=== PATIENT | male | born 1985 | race Caucasian/White ===

== ENCOUNTER 2016-11-14 06:26 | Emergency (ER) | payer OTHER ==
[2016-11-14] MEDS ORDERED: Ondansetron INJ* 2 MG/ML VIAL ONE (07:11)
[2016-11-14] MEDS ORDERED: Ondansetron INJ* 2 MG/ML VIAL IV ONE ×2 (07:15→07:23)
[2016-11-14] MEDS ORDERED: LORazepam INJ* 2 MG/ML 1 ML VIAL IV ONE (07:22)
[2016-11-14] MEDS ORDERED: Thiamine IV* 100 MG, Folic Acid IV* 1 MG, Multiple Vitamin IV ADULT* 10 ML in NS 0.9% 1... IV ONE (07:23)
[2016-11-14 07:30] LABS: Hematocrit 49 % (42-52); Mean Corpuscular HGB Conc 35 g/dl (31-36); Mean Corpuscular Hemoglobin 30 pg (27-31); Mean Corpuscular Volume 88 fL (80-94); Mean Platelet Volume 8 um3 (7.4-10.4); Red Blood Count 5.59 10^6/ul (4.0-5.4); Red Cell Distribution Width 13 % (10.5-15); White Blood Count 10.7 10^3/ul (3.5-10.8)
[2016-11-14 07:35] LABS: Add Diff/Slide Review? Slide Review Added; Comments Flag Yes
[2016-11-14 07:43] LABS: ALT 32 U/L (7-52); AST 33 U/L (13-39); Albumin 4.7 g/dL (3.2-5.2); Alkaline Phosphatase 90 U/L (34-104); Anion Gap 16 mmol/L (2-11); BUN/Creatinine Ratio 9.1 (8-20); Blood Urea Nitrogen 11 mg/dL (6-24); CO2 Carbon Dioxide 22 mmol/L (22-32); Calcium 9.4 mg/dL (8.6-10.3); Chloride 96 mmol/L (101-111); EGFR African American 88.8 (>60); EGFR Non-African American 69.1 (>60); Globulin 3.4 g/dL (2-4); Glucose 118 mg/dL (70-100); Magnesium 2.4 mg/dL (1.9-2.7); Potassium 3.7 mmol/L (3.5-5.0); Sodium 134 mmol/L (133-145); Total Protein 8.1 g/dL (6.4-8.9)
[2016-11-14 07:51] LABS: Acetaminophen < 15 mcg/mL; Alcohol 149 mg/dL (<10); Salicylate < 2.50 mg/dL (<30)
[2016-11-14 07:52] LABS: Benzodiazepine Urine Screen None Detected (None Detect)
[2016-11-14 08:02] LABS: TSH (Thyroid Stimulating Horm) 4.39 mcIU/mL (0.34-5.60)
--- NOTE | 2016-11-14 12:07 | ED ---
Fabian Dukes Karl, scribed for Leonard Jeffers MD on 11/14/16 at 0747 . Substance Abuse/Use - HPI Summary HPI Summary: Pt is 31 y/o male BIBA that presents to the ED c/o alcohol abuse. Pt stated "I was drinking" when asked what his chief complaint was in the room and stated he feels like he is having withdrawal. Pt also reported mild nausea and that he drinks beer, with his last drink being at approx 00:00 this morning. Pt reported that he usually stops drinking "cold turkey" but has tried a rehab center in [place] called the [facility]. Pt stated he does not need a mental health evaluation but just wants to detox. Per nursing note, pt has been drinking for 1 week with nausea and vomiting for the past 2 days but he has been an alcoholic for 10+ years. Pt has been off his medication for bipolar disorder and depression for 1 week as well. Pt denied SI/HI, hx of seizures, and any other drug use. Hx: alcoholism, depression, bipolar disorder, multiple suicide attempts. - History Of Current Complaint Chief Complaint: EDSubstanceAbuse Stated Complaint: NAUSEA Time Seen by Provider: 11/14/16 07:21 Hx Obtained From: Patient Onset/Duration of Drug/ETOH Abuse: Years - 10+ States Increased Use Since: 1 week Timing Of Abuse: Daily Severity Initially: Moderate Severity Currently: Moderate Character: Anxious Aggravating Factor(s): Medication Non-compliance Alleviating Factor(s): Nothing Associated Signs And Symptoms: Nausea, Vomiting Related Hx: Suicidal: Prior Attempt(s), Drug/Alcohol Last Used @ - 00:00 this morning, Prior Drug Abuse Counseling/Admission, Prior Psych Admission - Risk Factor(s) Completed Suicide Risk Factors: Male, White Polish, Past Suicide Attempt - Allergies/Home Medications Allergies/Adverse Reactions: Allergies Allergy/AdvReac Type Severity Reaction Status Date / Time No Known Allergies Allergy Verified 05/25/15 20:59 PMH/Surg Hx/FS Hx/Imm Hx Endocrine/Hematology History: Denies: Hx Anticoagulant Therapy, Hx Diabetes, Hx Thyroid Disease Cardiovascular History: Denies: Hx Hypertension, Hx Pacemaker/ICD Respiratory History: Denies: Hx Asthma, Hx Chronic Obstructive Pulmonary Disease (COPD) History: Reports: Hx Acute Renal Failure Denies: Hx Renal Disease Neurological History: Denies: Hx Dementia, Hx Seizures Psychiatric History: Reports: Hx Anxiety, Hx Depression, Hx Inpatient Treatment , Hx Community Mental Health Tx, Hx Bipolar Disorder - Type 1, Hx Suicide Attempt, Hx of Violent Episodes Against Others, Hx Substance Abuse Denies: Hx Attention Deficit Hyperactivity Disorder, Hx Eating Disorder, Hx Panic Disorder, Hx Post Traumatic Stress Disorder, Hx Schizophrenia, Other Psychiatric Issues/Disorders - Immunization History Date of Tetanus Vaccine: unknown Infectious Disease History: No Infectious Disease History: Denies: Hx Clostridium Difficile, Hx Hepatitis, Hx Human Immunodeficiency Virus (HIV), Hx Shingles, Hx Tuberculosis, Traveled Outside the [place] in Last 30 Days - Family History Known Family History: Negative: Other - alcoholism - Social History Alcohol Use: Daily Alcohol Amount: Pt states he cannot remember. Per pt records 20-25 drinks/day Hx Substance Use: No Substance Use Type: Reports: Prescribed Hx Tobacco Use: No Smoking Status (MU): Never Smoked Tobacco Have You Smoked in the Last Year: No Review of Systems Constitutional: Negative Eyes: Negative ENT: Negative Cardiovascular: Negative Respiratory: Negative Positive: Vomiting, Nausea Genitourinary: Negative Musculoskeletal: Negative Skin: Negative Neurological: Negative Positive: Anxious All Other Systems Reviewed And Are Negative: Yes Physical Exam Triage Information Reviewed: Yes Vital Signs On Initial Exam: Initial Vitals Temp Pulse Resp BP Pulse Ox 97.4 F 110 20 143/89 97 11/14/16 06:45 11/14/16 06:45 11/14/16 06:45 11/14/16 06:45 11/14/16 06:45 Vital Signs Reviewed: Yes Appearance: Positive: Well-Appearing, No Pain Distress Skin: Positive: Warm, Skin Color Reflects Adequate Perfusion, Dry Head/Face: Positive: Normal Head/Face Inspection Eyes: Positive: EOMI, FREEDOM ENT: Positive: Normal ENT inspection Neck: Positive: Supple, Nontender Respiratory/Lung Sounds: Positive: Clear to Auscultation, Breath Sounds Present Cardiovascular: Positive: Tachycardia - at 101 bpm Abdomen Description: Positive: Nontender, Soft Bowel Sounds: Positive: Present Musculoskeletal: Positive: Normal, Strength/ROM Intact Neurological: Positive: Normal, Sensory/Motor Intact, Alert, Oriented to Person Place, Time Psychiatric: Positive: Anxious Diagnostics - Vital Signs Vital Signs Temp Pulse Resp BP Pulse Ox 11/14/16 07:31 20 11/14/16 07:00 117 116/94 95 11/14/16 06:49 119 95 11/14/16 06:45 97.4 F 110 20 143/89 97 - Laboratory Lab Results: Lab Results 11/14/16 11/14/16 Range/Units 06:55 06:55 WBC 10.7 (3.5-10.8) 10^3/ul RBC 5.59 H (4.0-5.4) 10^6/ul Hgb 17.0 (14.0-18.0) g/dl Hct 49 (42-52) % MCV 88 (80-94) fL MCH 30 (27-31) pg MCHC 35 (31-36) g/dl RDW 13 (10.5-15) % Plt Count 318 (150-450) 10^3/ul MPV 8 (7.4-10.4) um3 Neut % (Auto) 56.2 (38-83) % Lymph % (Auto) 31.4 (25-47) % [place] % (Auto) 11.5 H (1-9) % Eos % (Auto) 0.4 (0-6) % Baso % (Auto) 0.5 (0-2) % Absolute Neuts (auto) 6.0 (1.5-7.7) 10^3/ul Absolute Lymphs (auto) 3.3 (1.0-4.8) 10^3/ul Absolute Monos (auto) 1.2 H (0-0.8) 10^3/ul Absolute Eos (auto) 0 (0-0.6) 10^3/ul Absolute Basos (auto) 0 (0-0.2) 10^3/ul Absolute Nucleated RBC 0.10 10^3/ul Nucleated RBC % 0.9 Sodium 134 (133-145) mmol/L Potassium 3.7 (3.5-5.0) mmol/L Chloride 96 L (101-111) mmol/L Carbon Dioxide 22 (22-32) mmol/L Anion Gap 16 H (2-11) mmol/L BUN 11 (6-24) mg/dL Creatinine 1.21 H (0.67-1.17) mg/dL Est GFR ( Amer) 88.8 (>60) Est GFR (Non-Af Amer) 69.1 (>60) BUN/Creatinine Ratio 9.1 (8-20) Glucose 118 H (70-100) mg/dL Calcium 9.4 (8.6-10.3) mg/dL Magnesium 2.4 (1.9-2.7) mg/dL Total Bilirubin 0.80 (0.2-1.0) mg/dL AST 33 (13-39) U/L ALT 32 (7-52) U/L Alkaline Phosphatase 90 (34-104) U/L Total Protein 8.1 (6.4-8.9) g/dL Albumin 4.7 (3.2-5.2) g/dL Globulin 3.4 (2-4) g/dL Albumin/Globulin Ratio 1.4 (1-3) TSH Pending Salicylates Pending Acetaminophen Pending Serum Alcohol Pending Result Diagrams: 11/14/16 06:55 11/14/16 06:55 Lab Statement: Any lab studies that have been ordered have been reviewed, and results considered in the medical decision making process. - EKG 07:14 Cardiac Rate: Tachycardia - at 101 bpm EKG Rhythm: Sinus Tachycardia Ectopy: None EKG Interpretation: Flat T's in lateral leads Course/Dx - Course Assessment/Plan: IN ED, PATIENT DENIES SI/HI. DENIES NEED FOR MHE. DECLINES MHE. ADVISED TO SEEK HELP WITH HIS ALCOHOL ADDICTION. DISCHARGE HOME STABLE. - Diagnoses Provider Diagnoses: Alcohol abuse Discharge - Discharge Plan Condition: Stable Disposition: HOME Patient Education Materials: Alcohol Intoxication (ED), Alcohol Use Disorder ( ED) Referrals: [facility] [Outside] [facility] [Outside] [facility] [Outside] Dali Ely MD [Primary Care Provider] - Additional Instructions: FOLLOW UP WITH YOUR DOCTOR. GET HELP FOR YOUR ALCOHOL PROBLEM. RETURN TO THE EMERGENCY DEPARTMENT FOR ANY WORSENING OF YOUR CONDITION OR QUESTIONS OR CONCERNS. The documentation as recorded by the Fabian byrne Karl accurately reflects the service I personally performed and the decisions made by me, Leonard Jeffers MD.
[2016-11-14 12:17] VITALS: BP 128/78
== END 2016-11-14 12:16 | disposition home or self-care (01) ==
LOC: ED 06:26
DX: F10.10 Alcohol abuse, uncomplicated (principal); R11.2 Nausea with vomiting, unspecified; F41.9 Anxiety disorder, unspecified
CPT/HCPCS: 36415; 80053; 80307; 80320; 80329; 83735; 84443; 85025; 93005; 96374; 96375; 99282; G0480; J2060; J2405; J3411

== ENCOUNTER 2017-03-21 13:59 | Emergency (ER) | payer OTHER ==
[2017-03-21] MEDS ORDERED: diPHENhydraMINE PO* 25 MG PO ONE (14:15)
[2017-03-21] MEDS ORDERED: Haloperidol TAB* 5 MG PO ONE ×2 (14:15→15:02)
[2017-03-21] MEDS ORDERED: LORazepam TAB(*) 1 MG PO ONE ×2 (14:15→15:02)
[2017-03-21 14:32] LABS: Urine Bacteria Absent (Absent); Urine Bilirubin Negative (Negative); Urine Glucose Negative (Negative); Urine Nitrite Negative (Negative)
[2017-03-21 14:44] LABS: Benzodiazepine Urine Screen None Detected (None Detect)
[2017-03-21 14:58] LABS: Hematocrit 48 % (42-52); Hemoglobin 16.1 g/dl (14.0-18.0); Mean Corpuscular HGB Conc 34 g/dl (31-36); Mean Corpuscular Hemoglobin 30 pg (27-31); Mean Corpuscular Volume 89 fL (80-94); Mean Platelet Volume 8 um3 (7.4-10.4); Red Cell Distribution Width 14 % (10.5-15)
[2017-03-21 15:11] LABS: ALT 214 U/L (7-52); AST 108 U/L (13-39); Albumin 4.8 g/dL (3.2-5.2); Alkaline Phosphatase 109 U/L (34-104); Anion Gap 17 mmol/L (2-11); BUN/Creatinine Ratio 5.9 (8-20); Blood Urea Nitrogen 6 mg/dL (6-24); CO2 Carbon Dioxide 20 mmol/L (22-32); Calcium 9.5 mg/dL (8.6-10.3); Chloride 99 mmol/L (101-111); Creatine Kinase 844 U/L (10-223); EGFR African American 107.5 (>60); EGFR Non-African American 83.6 (>60); Globulin 3.7 g/dL (2-4); Glucose 112 mg/dL (70-100); Potassium 3.9 mmol/L (3.5-5.0); Sodium 136 mmol/L (133-145); Total Protein 8.5 g/dL (6.4-8.9)
[2017-03-21 15:36] LABS: Acetaminophen < 15 mcg/mL; Alcohol 335 mg/dL (<10); Lithium < 0.10 mmol/L (0.6-1.2); Salicylate < 2.50 mg/dL (<30)
[2017-03-21 15:43] LABS: TSH (Thyroid Stimulating Horm) 2.44 mcIU/mL (0.34-5.60)
--- NOTE | 2017-03-21 18:25 | ED ---
Christina Dukes Auryana, scribed for Diogenes Cortes MD on 03/21/17 at 1630 . Psychiatric Complaint - HPI Summary HPI Summary: 32 year old male BIBVivi with police by side- reports increased panic attacks. Patient reports that he has not been doing well all week and states no sleep last night. Patient is medication non-compliant. PMHx is significant for bipolar disorder and anxiety/panic attacks. - History Of Current Complaint Time Seen by Provider: 03/21/17 14:26 Accompanied By: police Hx Obtained From: Patient, EMS, Other: - police Onset/Duration: Gradual Onset, Still Present Timing: Constant Severity Initially: Moderate Severity Currently: Moderate Character: Fearful, Anxious Aggravating Factor(s): Medication Non-compliance Associated Signs And Symptoms: Positive: Sleep Disturbance - not able to sleep - Allergies/Home Medications Allergies/Adverse Reactions: Allergies Allergy/AdvReac Type Severity Reaction Status Date / Time No Known Allergies Allergy Verified 05/25/15 20:59 Home Medications: Home Medications Disulfiram [Antabuse 500 MG TAB] 500 mg PO DAILY 03/21/17 [History Confirmed 10/26] Lamotrigine [Lamictal] 200 mg PO BEDTIME 03/21/17 [History Confirmed 03/21/17] Lurasidone HCl [Latuda] 80 mg PO DAILY 03/21/17 [History Confirmed 03/21/17] QUEtiapine TAB* [SEROquel TAB*] 25 mg PO BID 03/21/17 [History Confirmed ] QUEtiapine TAB* [SEROquel TAB*] 200 mg PO BEDTIME 03/21/17 [History Confirmed ] PMH/Surg Hx/FS Hx/Imm Hx Endocrine/Hematology History: Denies: Hx Anticoagulant Therapy, Hx Diabetes, Hx Thyroid Disease Cardiovascular History: Denies: Hx Hypertension, Hx Pacemaker/ICD Respiratory History: Denies: Hx Asthma, Hx Chronic Obstructive Pulmonary Disease (COPD) History: Reports: Hx Acute Renal Failure Denies: Hx Renal Disease Neurological History: Denies: Hx Dementia, Hx Seizures Psychiatric History: Reports: Hx Anxiety, Hx Depression, Hx Inpatient Treatment , Hx Community Mental Health Tx, Hx Bipolar Disorder - Type 1, Hx Suicide Attempt, Hx of Violent Episodes Against Others, Hx Substance Abuse Denies: Hx Attention Deficit Hyperactivity Disorder, Hx Eating Disorder, Hx Panic Disorder, Hx Post Traumatic Stress Disorder, Hx Schizophrenia, Other Psychiatric Issues/Disorders - Immunization History Date of Tetanus Vaccine: unknown Infectious Disease History: Denies: Hx Clostridium Difficile, Hx Hepatitis, Hx Human Immunodeficiency Virus (HIV), Hx Shingles, Hx Tuberculosis - Family History Known Family History: Negative: Other - alcoholism - Social History Occupation: Employed Full-time Lives: Alone Alcohol Use: Daily Alcohol Amount: Pt states he cannot remember. Per pt records 20-25 drinks/day Hx Substance Use: No Substance Use Type: Reports: Prescribed Hx Tobacco Use: No Smoking Status (MU): Never Smoked Tobacco Have You Smoked in the Last Year: No Review of Systems Constitutional: Negative Eyes: Negative ENT: Negative Cardiovascular: Negative Respiratory: Negative Gastrointestinal: Negative Genitourinary: Negative Musculoskeletal: Negative Skin: Negative Neurological: Negative Positive: Anxious, Other - trouble sleeping All Other Systems Reviewed And Are Negative: Yes Physical Exam - Summary Physical Exam Summary: The patient is well-nourished in no acute distress and in no acute pain. The skin is warm and dry and skin color reflects adequate perfusion. HEENT: The head is normocephalic and atraumatic. The pupils are equal and reactive. The conjunctivae are clear and without drainage. Nares are patent and without drainage. Mouth reveals moist mucous membranes and the throat is without erythema and exudate. The external ears are intact. The ear canals are patent and without drainage. The tympanic membranes are intact. Neck is supple with full range of motion and non-tender. There are no carotid bruits. There is no neck vein distension. Respiratory: Chest is non-tender. Lungs are clear to auscultation and breath sounds are symmetrical and equal. Cardiovascular: Heart is tachycardic. There is no murmur or rub auscultated. There is no peripheral edema and pulses are symmetrical and equal. Abdomen: The abdomen is soft and non-tender. There are normal bowel sounds heard in all four quadrants and there is no organomegaly palpated. Musculoskeletal: There is no back pain noted. Extremities are non-tender with full range of motion. There is good capillary refill. There is no peripheral edema or calf tenderness elicited. Neurological: Patient is alert and oriented to person, place and time. The patient has symmetrical motor strength in all four extremities. Cranial nerves are grossly intact. Deep tendon reflexes are symmetrical and equal in all four extremities. Psychiatric: The patient seems anxious and scared. He follows commands and is alert. Triage Information Reviewed: Yes Vital Signs On Initial Exam: Initial Vitals Temp Pulse Resp BP Pulse Ox 99.7 F 125 20 109/93 96 03/21/17 14:24 03/21/17 14:24 03/21/17 14:24 03/21/17 14:24 03/21/17 14:24 Vital Signs Reviewed: Yes Diagnostics - Vital Signs Vital Signs Temp Pulse Resp BP Pulse Ox 03/21/17 15:11 18 03/21/17 14:27 18 03/21/17 14:24 99.7 F 125 20 109/93 96 - Laboratory Lab Results: Lab Results 03/21/17 03/21/17 03/21/17 Range/Units 14:17 14:17 14:40 WBC 8.0 (3.5-10.8) 10^3/ul RBC 5.40 (4.0-5.4) 10^6/ul Hgb 16.1 (14.0-18.0) g/dl Hct 48 (42-52) % MCV 89 (80-94) fL MCH 30 (27-31) pg MCHC 34 (31-36) g/dl RDW 14 (10.5-15) % Plt Count 248 (150-450) 10^3/ul MPV 8 (7.4-10.4) um3 Neut % (Auto) 59.8 (38-83) % Lymph % (Auto) 28.6 (25-47) % [place] % (Auto) 10.5 H (1-9) % Eos % (Auto) 0.1 (0-6) % Baso % (Auto) 1.0 (0-2) % Absolute Neuts (auto) 4.8 (1.5-7.7) 10^3/ul Absolute Lymphs (auto) 2.3 (1.0-4.8) 10^3/ul Absolute Monos (auto) 0.8 (0-0.8) 10^3/ul Absolute Eos (auto) 0 (0-0.6) 10^3/ul Absolute Basos (auto) 0.1 (0-0.2) 10^3/ul Absolute Nucleated RBC 0.02 10^3/ul Nucleated RBC % 0.3 Sodium (133-145) mmol/L Potassium (3.5-5.0) mmol/L Chloride (101-111) mmol/L Carbon Dioxide (22-32) mmol/L Anion Gap (2-11) mmol/L BUN (6-24) mg/dL Creatinine (0.67-1.17) mg/dL Est GFR ( Amer) (>60) Est GFR (Non-Af Amer) (>60) BUN/Creatinine Ratio (8-20) Glucose (70-100) mg/dL Calcium (8.6-10.3) mg/dL Total Bilirubin (0.2-1.0) mg/dL AST (13-39) U/L ALT (7-52) U/L Alkaline Phosphatase (34-104) U/L Total Creatine Kinase (10-223) U/L Total Protein (6.4-8.9) g/dL Albumin (3.2-5.2) g/dL Globulin (2-4) g/dL Albumin/Globulin Ratio (1-3) TSH (0.34-5.60) mcIU/mL Urine Color Straw Urine Appearance Clear Urine pH 6.0 (5-9) Ur Specific [place] 1.003 L (1.010-1.030) Urine Protein Negative (Negative) Urine Ketones Negative (Negative) Urine Blood 1+ H (Negative) Urine Nitrate Negative (Negative) Urine Bilirubin Negative (Negative) Urine Urobilinogen Negative (Negative) Ur Leukocyte Esterase Negative (Negative) Urine WBC (Auto) Absent (Absent) Urine RBC (Auto) Trace(0-2/hpf) (Absent) Urine Bacteria Absent (Absent) Urine Glucose Negative (Negative) Salicylates (<30) mg/dL Urine Opiates Screen None detected (None Detect) Acetaminophen mcg/mL Ur Barbiturates Screen None detected (None Detect) Ur Phencyclidine Scrn None detected (None Detect) Ur Amphetamines Screen None detected (None Detect) U Benzodiazepines Scrn None detected (None Detect) [place] (0.6-1.2) mmol/L Urine Cocaine Screen None detected (None Detect) U Cannabinoids Screen None detected (None Detect) Serum Alcohol (<10) mg/dL 03/21/17 Range/Units 14:40 WBC (3.5-10.8) 10^3/ul RBC (4.0-5.4) 10^6/ul Hgb (14.0-18.0) g/dl Hct (42-52) % MCV (80-94) fL MCH (27-31) pg MCHC (31-36) g/dl RDW (10.5-15) % Plt Count (150-450) 10^3/ul MPV (7.4-10.4) um3 Neut % (Auto) (38-83) % Lymph % (Auto) (25-47) % [place] % (Auto) (1-9) % Eos % (Auto) (0-6) % Baso % (Auto) (0-2) % Absolute Neuts (auto) (1.5-7.7) 10^3/ul Absolute Lymphs (auto) (1.0-4.8) 10^3/ul Absolute Monos (auto) (0-0.8) 10^3/ul Absolute Eos (auto) (0-0.6) 10^3/ul Absolute Basos (auto) (0-0.2) 10^3/ul Absolute Nucleated RBC 10^3/ul Nucleated RBC % Sodium 136 (133-145) mmol/L Potassium 3.9 (3.5-5.0) mmol/L Chloride 99 L (101-111) mmol/L Carbon Dioxide 20 L (22-32) mmol/L Anion Gap 17 H (2-11) mmol/L BUN 6 (6-24) mg/dL Creatinine 1.02 (0.67-1.17) mg/dL Est GFR ( Amer) 107.5 (>60) Est GFR (Non-Af Amer) 83.6 (>60) BUN/Creatinine Ratio 5.9 L (8-20) Glucose 112 H (70-100) mg/dL Calcium 9.5 (8.6-10.3) mg/dL Total Bilirubin 0.50 (0.2-1.0) mg/dL AST 108 H (13-39) U/L ALT 214 H (7-52) U/L Alkaline Phosphatase 109 H (34-104) U/L Total Creatine Kinase 844 H (10-223) U/L Total Protein 8.5 (6.4-8.9) g/dL Albumin 4.8 (3.2-5.2) g/dL Globulin 3.7 (2-4) g/dL Albumin/Globulin Ratio 1.3 (1-3) TSH 2.44 (0.34-5.60) mcIU/mL Urine Color Urine Appearance Urine pH (5-9) Ur Specific [place] (1.010-1.030) Urine Protein (Negative) Urine Ketones (Negative) Urine Blood (Negative) Urine Nitrate (Negative) Urine Bilirubin (Negative) Urine Urobilinogen (Negative) Ur Leukocyte Esterase (Negative) Urine WBC (Auto) (Absent) Urine RBC (Auto) (Absent) Urine Bacteria (Absent) Urine Glucose (Negative) Salicylates < 2.50 (<30) mg/dL Urine Opiates Screen (None Detect) Acetaminophen < 15 mcg/mL Ur Barbiturates Screen (None Detect) Ur Phencyclidine Scrn (None Detect) Ur Amphetamines Screen (None Detect) U Benzodiazepines Scrn (None Detect) [place] < 0.10 L (0.6-1.2) mmol/L Urine Cocaine Screen (None Detect) U Cannabinoids Screen (None Detect) Serum Alcohol 335 H (<10) mg/dL Result Diagrams: 03/21/17 14:40 03/21/17 14:40 Lab Statement: Any lab studies that have been ordered have been reviewed, and results considered in the medical decision making process. Course/Dx - Course Assessment/Plan: 32 year old male BIBA with police by side- reports increased panic attacks. Patient reports that he has not been doing well all week and states no sleep last night. Patient is medication non-compliant. PMHx is significant for bipolar disorder and anxiety/panic attacks. (15:30) Patient is very anxious and restless even after medication - will administer more. LABS: elevated liver enzymes, serum etoh 338, low lithium. Patient will be a signout to Dr. Sheriff at 19:00 03/21/17. Medically estimated to be medically clear at 01:30 03/22/17 - Differential Dx/Clinical Impression Differential Diagnosis/HQI/PQRI: Positive: Alcohol Intoxication, Bipolar Disorder, Depression Provider Diagnosis: Acute alcohol intoxication, Depressed Discharge - Discharge Plan Condition: Stable Disposition: OTHER Discharge Disposition Comment: signout to Dr. Sheriff at 19:00 pending medical clearance and E Referrals: Dali Ely MD [Primary Care Provider] - The documentation as recorded by the scribChristina tucker Auryana accurately reflects the service I personally performed and the decisions made by me, Diogenes Cortes MD.
[2017-03-22 01:45] VITALS: BP 143/91
== END 2017-03-22 04:01 ==
LOC: ED 13:59
DX: F32.9 Major depressive disorder, single episode, unspecified (principal); Z91.14 Patient's other noncompliance with medication regimen; F10.129 Alcohol abuse with intoxication, unspecified; Y90.8 Blood alcohol level of 240 mg/100 ml or more; F41.9 Anxiety disorder, unspecified
CPT/HCPCS: 36415; 80053; 80178; 80307; 80320; 80329; 81003; 81015; 82550; 84443; 85025; 99284; A9270-GY; G0480

== ENCOUNTER 2017-04-16 08:45 | Inpatient (IN) | payer OTHER ==
[2017-04-16] MEDS ORDERED: Thiamine IV* 100 MG, Folic Acid IV* 1 MG, Multiple Vitamin IV ADULT* 10 ML in NS 0.9% 1... IV ONE (09:10)
[2017-04-16] MEDS ORDERED: LORazepam INJ* 2 MG/ML 1 ML VIAL IV PUSH ONE ×2 (09:14→11:09)
[2017-04-16 09:34] LABS: Hematocrit 48 % (42-52); Hemoglobin 16.4 g/dl (14.0-18.0); Mean Corpuscular HGB Conc 34 g/dl (31-36); Mean Corpuscular Hemoglobin 30 pg (27-31); Mean Corpuscular Volume 88 fL (80-94); Mean Platelet Volume 7 um3 (7.4-10.4); Red Blood Count 5.47 10^6/ul (4.0-5.4); Red Cell Distribution Width 14 % (10.5-15); White Blood Count 6.3 10^3/ul (3.5-10.8)
[2017-04-16 09:45] LABS: ALT 69 U/L (7-52); AST 63 U/L (13-39); Albumin 4.5 g/dL (3.2-5.2); Alkaline Phosphatase 98 U/L (34-104); Anion Gap 16 mmol/L (2-11); BUN/Creatinine Ratio 10.6 (8-20); Blood Urea Nitrogen 12 mg/dL (6-24); CO2 Carbon Dioxide 22 mmol/L (22-32); Calcium 9.3 mg/dL (8.6-10.3); Chloride 96 mmol/L (101-111); EGFR African American 95.5 (>60); EGFR Non-African American 74.3 (>60); Globulin 3.4 g/dL (2-4); Glucose 129 mg/dL (70-100); Potassium 3.9 mmol/L (3.5-5.0); Sodium 134 mmol/L (133-145); Total Protein 7.9 g/dL (6.4-8.9)
[2017-04-16 10:11] LABS: Acetaminophen < 15 mcg/mL; Alcohol 147 mg/dL (<10); Salicylate < 2.50 mg/dL (<30)
[2017-04-16 10:21] LABS: TSH (Thyroid Stimulating Horm) 2.41 mcIU/mL (0.34-5.60)
[2017-04-16] MEDS ORDERED: Thiamine IV* 100 MG/ML 2 ML VIAL IM ONE (11:35)
[2017-04-16] MEDS ORDERED: Acetaminophen TAB* 325 MG PO PRN ×2 (11:35→12:38)
[2017-04-16] MEDS ORDERED: Ondansetron INJ* 2 MG/ML VIAL IV PRN (12:38)
--- NOTE | 2017-04-16 12:57 | ED ---
Crow Dukes SooYoung, scribed for Emiliano Calles MD on 04/16/17 at 0921 . Substance Abuse/Use - HPI Summary HPI Summary: A 32 y/o M presents to ED with c/o EtOH withdrawal. Pt states he last drank at 2200 yesterday. Sx include vomiting, tremors, feeling nervous, inability to sit still. Denies n/d and constipation, abd pain, CP, SOB. He has been binge drinking for the past 10 days, and last night he had 18 to 19 beers. Pt reports being an alcoholic for past decade. Non-smoker. No drugs. - History Of Current Complaint Chief Complaint: EDDetoxRequest Stated Complaint: WITHDRAWAL Time Seen by Provider: 04/16/17 09:09 Hx Obtained From: Patient Onset/Duration of Drug/ETOH Abuse: Days - binging past 10 days Ingestion History: Type/Name Of Drug - ETOH Overdose Characteristics: Oral Timing Of Abuse: Daily, Binge Use Severity Initially: Moderate Severity Currently: Moderate Character: Other - nervous Associated Signs And Symptoms: Vomiting, Other: - tremors, feeling nervous - Allergies/Home Medications Allergies/Adverse Reactions: Allergies Allergy/AdvReac Type Severity Reaction Status Date / Time No Known Allergies Allergy Verified 05/25/15 20:59 Home Medications: Home Medications Lurasidone (NF) [Latuda (NF)] 80 mg PO BEDTIME 04/16/17 [History Confirmed 04/16] Mirtazapine TAB* [Remeron TAB*] 15 mg PO DAILY 04/16/17 [History Confirmed 04/16] lamoTRIgine TAB(*) [LaMICtal TAB(*)] 200 mg PO BEDTIME 04/16/17 [History Confirmed 04/16/17] PMH/Surg Hx/FS Hx/Imm Hx Previously Healthy: No Endocrine/Hematology History: Denies: Hx Anticoagulant Therapy, Hx Diabetes, Hx Thyroid Disease Cardiovascular History: Denies: Hx Hypertension, Hx Pacemaker/ICD Respiratory History: Denies: Hx Asthma, Hx Chronic Obstructive Pulmonary Disease (COPD) History: Reports: Hx Acute Renal Failure Denies: Hx Renal Disease Neurological History: Denies: Hx Dementia, Hx Seizures Psychiatric History: Reports: Hx Anxiety, Hx Depression, Hx Inpatient Treatment , Hx Community Mental Health Tx, Hx Bipolar Disorder - Type 1, Hx Suicide Attempt, Hx of Violent Episodes Against Others, Hx Substance Abuse Denies: Hx Attention Deficit Hyperactivity Disorder, Hx Eating Disorder, Hx Panic Disorder, Hx Post Traumatic Stress Disorder, Hx Schizophrenia, Other Psychiatric Issues/Disorders - Immunization History Date of Tetanus Vaccine: UTD Date of Influenza Vaccine: UTD Infectious Disease History: No Infectious Disease History: Denies: Hx Clostridium Difficile, Hx Hepatitis, Hx Human Immunodeficiency Virus (HIV), Hx Shingles, Hx Tuberculosis, Traveled Outside the [place] in Last 30 Days - Family History Known Family History: Negative: Other - alcoholism - Social History Occupation: Employed Full-time Lives: Alone Alcohol Use: Daily Alcohol Amount: Per pt approximately 18 drinks/day of 12oz beer Hx Substance Use: No Substance Use Type: Reports: None Hx Tobacco Use: No Smoking Status (MU): Never Smoked Tobacco Have You Smoked in the Last Year: No Review of Systems Positive: Other - pos: ETOH withdrawl-shaking/tremors Negative: Chest Pain Negative: Shortness Of Breath Positive: Vomiting, Other - neg: constipation. Negative: Abdominal Pain, Diarrhea, Nausea Psychological: Other - pos: nervous All Other Systems Reviewed And Are Negative: Yes Physical Exam - Summary Physical Exam Summary: VITAL SIGNS: Reviewed. GENERAL: Patient is a well-developed and nourished male who is lying comfortable in the stretcher. Patient is not in any acute respiratory distress. SLIGHTLY TREMULOUS. HEAD AND FACE: No signs of trauma. No ecchymosis, hematomas or skull depressions. No sinus tenderness. EYES: PERRLA, EOMI x 2, No injected conjunctiva, no nystagmus. EARS: Hearing grossly intact. Ear canals and tympanic membranes are within normal limits. MOUTH: Oropharynx within normal limits. NECK: Supple, trachea is midline, no adenopathy, no JVD, no carotid bruit, no c- spine tenderness, neck with full ROM. CHEST: Symmetric, no tenderness at palpation LUNGS: Clear to auscultation bilaterally. No wheezing or crackles. CVS: Regular rate and rhythm, S1 and S2 present, no murmurs or gallops appreciated. ABDOMEN: Soft, non-tender. No signs of distention. No rebound, no guarding, and no masses palpated. Bowel sounds are normal. EXTREMITIES: FROM in all major joints, no edema, no cyanosis or clubbing. NEURO: Alert and oriented x 3. No acute neurological deficits. Speech is normal and follows commands. SKIN: Dry and warm Triage Information Reviewed: Yes Vital Signs On Initial Exam: Initial Vitals Temp Pulse Resp BP Pulse Ox 96.9 F 120 18 133/100 99 04/16/17 08:48 04/16/17 08:48 04/16/17 08:48 04/16/17 08:48 04/16/17 08:48 Vital Signs Reviewed: Yes - Willy Coma Scale Coma Scale Total: 15 Diagnostics - Vital Signs Vital Signs Temp Pulse Resp BP Pulse Ox 04/16/17 09:00 115 19 131/87 95 04/16/17 08:58 96.7 F 112 12 112/92 96 04/16/17 08:56 112/92 04/16/17 08:48 96.9 F 120 18 133/100 99 - Laboratory Lab Results: Lab Results 04/16/17 04/16/17 Range/Units 09:14 09:14 WBC 6.3 (3.5-10.8) 10^3/ul RBC 5.47 H (4.0-5.4) 10^6/ul Hgb 16.4 (14.0-18.0) g/dl Hct 48 (42-52) % MCV 88 (80-94) fL MCH 30 (27-31) pg MCHC 34 (31-36) g/dl RDW 14 (10.5-15) % Plt Count 293 (150-450) 10^3/ul MPV 7 L (7.4-10.4) um3 Neut % (Auto) 66.4 (38-83) % Lymph % (Auto) 24.8 L (25-47) % [place] % (Auto) 7.5 (1-9) % Eos % (Auto) 0.4 (0-6) % Baso % (Auto) 0.9 (0-2) % Absolute Neuts (auto) 4.2 (1.5-7.7) 10^3/ul Absolute Lymphs (auto) 1.6 (1.0-4.8) 10^3/ul Absolute Monos (auto) 0.5 (0-0.8) 10^3/ul Absolute Eos (auto) 0 (0-0.6) 10^3/ul Absolute Basos (auto) 0.1 (0-0.2) 10^3/ul Absolute Nucleated RBC 0.02 10^3/ul Nucleated RBC % 0.3 Sodium 134 (133-145) mmol/L Potassium 3.9 (3.5-5.0) mmol/L Chloride 96 L (101-111) mmol/L Carbon Dioxide 22 (22-32) mmol/L Anion Gap 16 H (2-11) mmol/L BUN 12 (6-24) mg/dL Creatinine 1.13 (0.67-1.17) mg/dL Est GFR ( Amer) 95.5 (>60) Est GFR (Non-Af Amer) 74.3 (>60) BUN/Creatinine Ratio 10.6 (8-20) Glucose 129 H (70-100) mg/dL Calcium 9.3 (8.6-10.3) mg/dL Total Bilirubin 0.60 (0.2-1.0) mg/dL AST 63 H (13-39) U/L ALT 69 H (7-52) U/L Alkaline Phosphatase 98 (34-104) U/L Total Protein 7.9 (6.4-8.9) g/dL Albumin 4.5 (3.2-5.2) g/dL Globulin 3.4 (2-4) g/dL Albumin/Globulin Ratio 1.3 (1-3) TSH 2.41 (0.34-5.60) mcIU/mL Salicylates < 2.50 (<30) mg/dL Acetaminophen < 15 mcg/mL Serum Alcohol 147 H (<10) mg/dL Result Diagrams: 04/16/17 09:14 04/16/17 09:14 Lab Statement: Any lab studies that have been ordered have been reviewed, and results considered in the medical decision making process. - EKG 1 Cardiac Rate: Tachycardia - 104 bpm EKG Rhythm: Sinus Tachycardia ST Segment: Normal - no ST elevation Course/Dx - Course Assessment/Plan: A 32 y/o M presents to ED with c/o EtOH withdrawal. Pt states he last drank at 2200 yesterday. Sx include vomiting, tremors, feeling nervous, inability to sit still. Denies n/d and constipation, abd pain, CP, SOB. He has been binge drinking for the past 10 days, and last night he had 18 to 19 beers. Pt reports being an alcoholic for past decade. Non-smoker. No drugs. In the ED course an IV access was obtained. Patient was placed in a cardiac cath rn. Patient was started with IV fluids. HE seems very nervous therefore he was given one dose of Ativan. Labs within normal limits except for glucose of 129, Increase LFTs secondary to his alcoholism and serum alcohol of 147. EKG shows a sinus tachycardia w/o ST elevations. In the ED course he was given a banana bag, Ativan for his anxiety and it seem that he is withdrawing from ETOH. At this time he is tachycardic and tremulus. Therefore I discussed the case with Dr. Churchill who accepted the patient for admission. - Diagnoses Differential Diagnosis/HQI/PQRI: Positive: Alcohol Abuse, Alcohol Withdrawal, Anxiety, Drug Withdrawal Provider Diagnoses: Alcohol withdrawal - Physician Notifications Discussed Care Of Patient With: Cara Churchill Time Discussed With Above Provider: 11:35 Instructed by Provider To: Admit As Inpatient Discharge - Discharge Plan Condition: Stable Disposition: ADMITTED TO [facility] The documentation as recorded by the Crow byrne SooYoung accurately reflects the service I personally performed and the decisions made by me, Emiliano Calles MD.
--- NOTE | 2017-04-16 14:05 | HP ---
CC: Dr. Ely * HISTORY AND PHYSICAL: DATE OF ADMISSION: 04/16/17 PRIMARY CARE PHYSICIAN: Dr. Ely. ATTENDING PHYSICIAN WHILE IN THE HOSPITAL: Cara Churchill MD * (report dictated by Nithin Queen NP). CHIEF COMPLAINT: ETOH abuse. HISTORY OF PRESENT ILLNESS: Mr. Anthony is a 32-year-old male patient. He has a history of ETOH abuse, depression, bipolar disorder, alcoholic hepatitis and history of suicidal ideation in the past. He comes in today. He says he has been binge drinking for the last 10 days, he has been drinking about 20 to 25 drinks a day. He stopped late last night and by early this morning, he noted that he was starting to get sweaty. He was getting really agitated. He was having palpitations and he was feeling shaky. He was concerned that he was going to go into withdrawal as he has had DTs in the past, so he came into the ER. He denied having any chest pain. No shortness of breath. No hallucinations. No abdominal pain. No nausea, no vomiting. He denied any tarry stools. No dysuria, fevers or chills. He was evaluated in the ER. There was concern for ETOH withdrawal. We were asked to evaluate for admission. PAST MEDICAL HISTORY: Significant for: 1. ETOH abuse. 2. Depression. 3. Bipolar disorder. 4. Alcoholic hepatitis. 5. Suicidal ideation. PAST SURGICAL HISTORY: He denied. HOME MEDICATIONS: According to the list that was provided includes: 1. Seroquel 25 mg twice a day. 2. Seroquel 200 mg at bedtime. 3. Remeron 15 mg daily. 4. Latuda 80 mg at bedtime. 5. Lamictal 200 mg at bedtime. 6. Invega 150 mg IM every 28 days. 7. Antabuse 500 mg p.o. daily. ALLERGIES TO MEDICATIONS: Include no known drug allergies. FAMILY HISTORY: Reviewed, noncontributory. SOCIAL HISTORY: He does not smoke. He does drink on a daily basis. The last time he was sober was about 10 days ago. He was sober for about a month. Then he had these episodes of binge drinking. He works at [employer]. He does not appoint a surrogate decision maker at this point. REVIEW OF SYSTEMS: There is no documented fever. He denied having any significant weight change. There was no double vision. There was no ear discharge. There was no rhinorrhea. There was no sore throat. No thyroid enlargement. He denied having any chest pain. There was no orthopnea. No nocturnal dyspnea. There was no abdominal pain. No nausea, no vomiting. No dysuria, no frequency. There was no seizures. No loss of consciousness. No pruritus and no skin ulcerations. Review of 14 systems completed, all others negative. PHYSICAL EXAMINATION GENERAL: Mr. Anthony is a 32-year-old male patient. He is sitting in the ER stretcher. He does not appear to be in any acute distress. VITAL SIGNS: Blood pressure 119/79, pulse of 104, respirations 18, O2 sat 95%, temperature 96.7. HEENT: Head is atraumatic, normocephalic. Eyes: EOMs are intact. Sclerae are anicteric, not pale. Throat: Oral mucosa appears to be moist. No oropharyngeal erythema. NECK: Supple. LUNGS: Clear to auscultation bilaterally. There are no wheezes, rales or rhonchi. HEART: Sounds S1, S2. Regular rate and rhythm. He is tachycardic. ABDOMEN: Soft. It was flat, nontender. Bowel sounds were present. EXTREMITIES: Pulses 2+ throughout. He is able to move all 4 extremities with 5 /5 strength. NEUROLOGIC: The patient is awake, he is alert, he is oriented x3. Tongue is midline. Director Payer were equal. No gross focal deficits. SKIN: Intact. DIAGNOSTIC STUDIES/LAB DATA: The labs today revealed a WBC of 6.3, RBC of 5.47 , hemoglobin of 16.4, hematocrit of 48, platelet count of 93. Sodium 134, potassium 3.9, chloride 96, bicarb 22, BUN 12, creatinine 1.13, glucose 129. Lactic 9.3, AST 63, ALT 69. TSH 2.4. Toxicology showed an alcohol level of 147. He had an EKG obtained today which revealed sinus tachycardia at a rate of 104. No ST elevations or T-wave inversions were noted. Old medical records were reviewed. ASSESSMENT AND PLAN: Mr. Anthony is a 32-year-old male patient coming into the ER today with complaints of alcohol withdrawal. He will be admitted under observation status for: 1. ETOH abuse with signs of withdrawal. At this point, I will go ahead and put him on the WAM protocol. He got a banana bag here in the ED. We will get a social work consult. We will hydrate the patient. We will continue with supportive care. He appears to have some mild withdrawal currently, but with his history of going into delirium tremens, I would like to keep him overnight for observation. 2. ETOH abuse. Again, we did order social work consult. 3. Depression. Continue supportive care. 4. Bipolar. Continue meds as prescribed. 5. Alcoholic hepatitis. He has a mild amount of elevated LFTs probably from the alcohol. I would not call this formally alcoholic hepatitis, it is just slightly elevated. We will trend these and we will continue to follow. 6. History of suicidal ideation. He is currently not suicidal. 7. DVT prophylaxis. We will go ahead and put him on SCDs. 8. Code status is full code. 9. Fluids, electrolytes, nutrition. Regular diet. TIME SPENT: Time spent on the admission 60 minutes, greater than half the time was spent [id number] with the patient, obtaining my history and physical, the other half time spent going over the plan of care with the patient, implementing the plan of care. I did discuss the plan of care with my attending , Dr. Churchill; she is in agreement. NITHIN QUEEN, PORTER [id number]/CPS #: [id number] ESTHELA
[2017-04-16] MEDS: NS 0.9% 1000 ML* 1,000 ML IV SCH ×2 (14:18→22:47)
[2017-04-16] MEDS: LORazepam TAB(*) 1 MG PO SCH ×3 (18:17→22:29)
[2017-04-16] MEDS ORDERED: QUEtiapine TAB* 25 MG PO SCH (21:00)
[2017-04-16] MEDS ORDERED: QUEtiapine TAB* 100 MG PO SCH (21:00)
[2017-04-16] MEDS: lamoTRIgine TAB(*) 100 MG PO SCH (21:01)
[2017-04-17] MEDS: LORazepam TAB(*) 1 MG PO SCH ×6 (00:40→21:13)
[2017-04-17] MEDS: NS 0.9% 1000 ML* 1,000 ML IV SCH ×2 (06:21→15:03)
[2017-04-17] MEDS: Omeprazole CAP* 20 MG PO SCH (06:22)
[2017-04-17 07:36] LABS: Albumin 3.8 g/dL (3.2-5.2); BUN/Creatinine Ratio 14.9 (8-20); Calcium 8.8 mg/dL (8.6-10.3); Direct Bilirubin 0.2 mg/dL (0.03-0.18); EGFR African American 118.1 (>60); EGFR Non-African American 91.9 (>60); Globulin 2.7 g/dL (2-4); Indirect Bilirubin 1.1 mg/dL (0.3-1.0); Potassium 3.8 mmol/L (3.5-5.0); Total Bilirubin 1.3 mg/dL (0.2-1.0); Total Protein 6.5 g/dL (6.4-8.9)
[2017-04-17 07:46] LABS: Hematocrit 42 % (42-52); Hemoglobin 14.4 g/dl (14.0-18.0); Mean Corpuscular HGB Conc 34 g/dl (31-36); Mean Corpuscular Hemoglobin 31 pg (27-31); Mean Corpuscular Volume 89 fL (80-94); Mean Platelet Volume 8 um3 (7.4-10.4); Red Blood Count 4.73 10^6/ul (4.0-5.4); Red Cell Distribution Width 14 % (10.5-15); White Blood Count 5.3 10^3/ul (3.5-10.8)
[2017-04-17] MEDS: Thiamine TAB* 100 MG TAB PO SCH (08:43)
[2017-04-17] MEDS: Multivitamins/Minerals TAB PO SCH (08:43)
[2017-04-17] MEDS: Folic Acid TAB* 1 MG PO SCH (08:44)
[2017-04-17] MEDS: Mirtazapine TAB* 15 MG PO SCH (08:44)
[2017-04-17] MEDS ORDERED: Multivitamins/Minerals TAB PO SCH (09:00)
[2017-04-17] MEDS ORDERED: Thiamine TAB* 100 MG TAB PO SCH (09:00)
--- NOTE | 2017-04-17 15:15 | PN ---
Subjective Date of Service: 04/17/17 Interval History: This is a 32 yo male with h/o alcoholism who had engaged in a binge for the last several days and presented in alcohol withdrawal. Patient required multiple doses of Ativan overnight and was quite lethargic this morning but has become more alert as the day goes on. He denies ARCE, n/v. No abd pain. Some tremor. Objective Active Medications: Acetaminophen (Tylenol Tab*) 650 mg PO Q4H PRN PRN Reason: PAIN Acetaminophen (Tylenol Tab*) 650 mg PO Q4H PRN PRN Reason: PAIN Folic Acid (Folvite Tab*) 1 mg PO DAILY [facility] Last Admin: 04/17/17 08:44 Dose: 1 mg Sodium Chloride (Ns 0.9% 1000 Ml*) 1,000 mls @ 125 mls/hr IV PER RATE [facility] Last Admin: 04/17/17 15:03 Dose: 125 mls/hr Lamotrigine (Lamictal Tab(*)) 200 mg PO BEDTIME [facility] Last Admin: 04/16/17 21:01 Dose: 200 mg Lorazepam (Ativan Tab(*)) 0 mg PO .PER WAM SCORE [facility] PRN Reason: Protocol Last Admin: 04/17/17 06:22 Dose: 2 mg Mirtazapine (Remeron Tab*) 15 mg PO DAILY [facility] Last Admin: 04/17/17 08:44 Dose: 15 mg Multivitamins/Minerals (Theragran/Minerals Tab*) 1 tab PO DAILY [facility] Last Admin: 04/17/17 08:43 Dose: 1 tab Omeprazole (Prilosec Cap*) 20 mg PO DAILY@0600 [facility] Last Admin: 04/17/17 06:22 Dose: 20 mg Ondansetron HCl (Zofran Inj*) 4 mg IV Q6H PRN PRN Reason: NAUSEA Last Admin: 04/16/17 20:59 Dose: 4 mg Thiamine HCl (Vitamin B-1 Tab*) 100 mg PO DAILY [facility] Last Admin: 04/17/17 08:43 Dose: 100 mg Vital Signs 04/17/17 04/17/17 04/17/17 10:37 12:04 14:08 Temperature 98.1 F 98.3 F Pulse Rate 92 102 85 Respiratory 24 16 22 Rate Blood Pressure 130/83 137/70 139/80 (mmHg) O2 Sat by Pulse 96 97 97 Oximetry Appearance: Alert, slightly anxious and tremulous appearing Respiratory: Symmetrical Chest Expansion and Respiratory Effort, Clear to Auscultation Cardiovascular: NL Sounds; No Murmurs; No JVD, RRR Abdominal: NL Sounds; No Tenderness; No Distention Extremities: No Edema Neurological: - - tremulous Result Diagrams: 04/17/17 05:36 04/17/17 05:36 Additional Lab and Data: . Assess/Plan/Problems-Billing Assessment: This is a 32 yo gentleman with a long history of alcoholism who presented in alcohol withdrawal. - Patient Problems (1) Alcohol withdrawal Comment: Patient seems improved throughout the day, but still tremulous Patient desires sobriety and plans to participate in AA Cont monitoring per [facility] protocol and treatment with Ativan prn (2) Depressive disorder Comment: Appears stable, home medications continued (3) History of bipolar disorder Comment: Cont home medications (4) DVT prophylaxis Comment: SCDs (5) Full code status Status and Disposition: Transition to inpatient. Anticipate dc tomorrow
[2017-04-17] MEDS: lamoTRIgine TAB(*) 100 MG PO SCH (21:13)
[2017-04-18] MEDS: NS 0.9% 1000 ML* 1,000 ML IV SCH ×2 (01:41→10:16)
[2017-04-18] MEDS: Omeprazole CAP* 20 MG PO SCH (05:58)
[2017-04-18] MEDS: Multivitamins/Minerals TAB PO SCH (08:16)
[2017-04-18] MEDS: Thiamine TAB* 100 MG TAB PO SCH (08:16)
[2017-04-18] MEDS: Mirtazapine TAB* 15 MG PO SCH (08:17)
[2017-04-18] MEDS: Folic Acid TAB* 1 MG PO SCH (08:17)
[2017-04-18 09:03] LABS: Urine Bacteria Absent (Absent); Urine Bilirubin Negative (Negative); Urine Glucose Negative (Negative); Urine Nitrite Negative (Negative)
[2017-04-18 09:19] LABS: Benzodiazepine Urine Screen None Detected (None Detect)
[2017-04-18 11:37] VITALS: BP 125/93
--- NOTE | 2017-04-18 22:29 | DS ---
CC: Dr. Ely * DISCHARGE SUMMARY: DATE OF ADMISSION: 04/16/17 DATE OF DISCHARGE: 04/18/17 PRIMARY CARE PROVIDER: Dr. Ely. DISCHARGING PROVIDER: MYCHAL Flower SUPERVISING PHYSICIAN: Dr. Bayron Santana. * (dictated by MYCHAL Flower) PRIMARY DISCHARGE DIAGNOSIS: Acute alcohol withdrawal. SECONDARY DISCHARGE DIAGNOSIS: Depressive disorder with bipolar, appears stable. DISCHARGE MEDICATIONS: 1. Latuda 80 mg p.o. at bedtime. 2. Remeron 15 mg p.o. daily. 3. Invega 156 mg IM every 28 days. 4. Lamictal 200 mg p.o. at bedtime. MEDICATIONS CHANGES: None. HOSPITAL IMAGING: EKG shows sinus rhythm without ischemic changes. HOSPITAL COURSE: This is a 32-year-old gentleman with history of bipolar with depression and alcoholism who presented to the emergency department in alcohol withdrawal with request for detox. The patient reported that he had been binging for approximately 10 days prior. His last drink has been approximately 12 hours prior to presentation to the hospital. He was tremulous at that time. Initial vitals demonstrated tachycardia with a heart rate of 120, but with normotensive. Initial labs were largely unremarkable with the exception of mildly elevated transaminases. The patient was admitted for treatment of alcohol withdrawal. He was treated with oral Ativan and monitored per [facility] protocol. The patient did not sustain any hallucinations or seizure like activity. The patient did not desire rehab at discharge, he wished to pursue AA. He has had multiple prior rehab attempts that unfortunately have not been successful for him. DISPOSITION AND FOLLOWUP PLAN: The patient is being discharged to home. No changes have been made to his home medications. He is encouraged to maintain sobriety and appears to have completed the withdrawal process at the time of discharge. He was received the list of AA meetings in the area and recommend following up with his primary care provider and psychiatrist following discharge. MYCHAL FLOWER [id number]/[facility] #: [id number] MTDD
== END 2017-04-18 12:45 | disposition home or self-care (01) | DRG 897 ==
LOC: ED 08:45 → MED 11:35 → OBSVTOIN 04-17 09:32
PROVIDERS: ADMIT Internal Medicine; ATTEND Internal Medicine
PROC: HZ2ZZZZ Detoxification Services for Substance Abuse Treatment (ICD-10-PCS; principal; 2017-04-17)
DX: F10.239 Alcohol dependence with withdrawal, unspecified (principal); F31.9 Bipolar disorder, unspecified; K70.10 Alcoholic hepatitis without ascites; Y90.9 Presence of alcohol in blood, level not specified; F41.9 Anxiety disorder, unspecified; R40.2412 Glasgow coma scale score 13-15, at arrival to emergency department; Y90.6 Blood alcohol level of 120-199 mg/100 ml
CPT/HCPCS: 36415; 80048; 80053; 80076; 80307; 80320; 80329; 81003; 81015; 84443; 85025; 85610; 93005; 94660; A9270-GY; G0378; G0480; J2060; J2405

== ENCOUNTER 2017-04-19 14:37 | Inpatient (IN) | payer OTHER ==
[2017-04-19 15:19] LABS: Hematocrit 46 % (42-52); Hemoglobin 15.7 g/dl (14.0-18.0); Mean Corpuscular HGB Conc 34 g/dl (31-36); Mean Corpuscular Hemoglobin 30 pg (27-31); Mean Corpuscular Volume 89 fL (80-94); Mean Platelet Volume 7 um3 (7.4-10.4); Red Blood Count 5.22 10^6/ul (4.0-5.4); Red Cell Distribution Width 14 % (10.5-15); White Blood Count 7.3 10^3/ul (3.5-10.8)
--- NOTE | 2017-04-19 15:31 | RAD ---
HISTORY: Intoxication, fall COMPARISONS: None TECHNIQUE: Multiple contiguous axial CT scans were obtained of the head without intravenous contrast. FINDINGS: HEMORRHAGE/INFARCT: There is no hemorrhage or acute infarct. MASSES/SHIFT: There is no mass or shift. EXTRA-AXIAL SPACES: There are no extra-axial fluid collections. SULCI AND VENTRICLES: The sulci and ventricles are normal in size and position for the patient's stated age. CEREBRUM: There are no focal parenchymal abnormalities. BRAINSTEM: There are no focal parenchymal abnormalities. CEREBELLUM: There are no focal parenchymal abnormalities. VESSELS: The vessels are grossly normal. PARANASAL SINUSES: There is a mucous retention cyst versus polypoid mucosal thickening of the right maxillary sinus. ORBITS: The orbits are unremarkable. BONES AND SOFT TISSUE: No bone or soft tissue abnormalities are noted. OTHER: None IMPRESSION: NO ACUTE INTRACRANIAL PATHOLOGY.
--- NOTE | 2017-04-19 15:32 | RAD ---
HISTORY: Intoxication, fall COMPARISONS: None TECHNIQUE: Multiple contiguous axial CT scans were obtained of the cervical spine without intravenous contrast, with coronal and sagittal multiplanar reformations. FINDINGS: BRAIN: The visualized brain is unremarkable CENTRAL CANAL: Evaluation of the central canal is limited on CT technique, however there is no obvious canalicular mass or epidural hemorrhage. ALIGNMENT: The alignment is normal, without subluxation or dislocation. VERTEBRAL BODIES: The odontoid process is intact. The atlantoaxial intervals are symmetric. The vertebral bodies are normal in attenuation, without fracture. JOINTS: There is no subluxation or dislocation MUSCULATURE: Normal INTERVERTEBRAL DISCS: There is diffuse loss of intervertebral disc height. AXIAL IMAGES: On axial images, there is no osseous neural foraminal narrowing or central canal stenosis. SOFT TISSUES: The visualized soft tissues of the neck are unremarkable. The prevertebral fat stripe is preserved. OTHER: None. IMPRESSION: NO ACUTE OSSEOUS INJURY TO THE CERVICAL SPINE
[2017-04-19 15:34] LABS: ALT 74 U/L (7-52); AST 94 U/L (13-39); Albumin 4.4 g/dL (3.2-5.2); Alkaline Phosphatase 95 U/L (34-104); Anion Gap 16 mmol/L (2-11); BUN/Creatinine Ratio 4.5 (8-20); Blood Urea Nitrogen 4 mg/dL (6-24); CO2 Carbon Dioxide 20 mmol/L (22-32); Calcium 9.1 mg/dL (8.6-10.3); Chloride 99 mmol/L (101-111); EGFR African American 125.8 (>60); EGFR Non-African American 97.8 (>60); Globulin 3.3 g/dL (2-4); Glucose 111 mg/dL (70-100); Potassium 3.4 mmol/L (3.5-5.0); Sodium 135 mmol/L (133-145); Total Protein 7.7 g/dL (6.4-8.9)
[2017-04-19 15:45] LABS: Acetaminophen < 15 mcg/mL; Salicylate < 2.50 mg/dL (<30)
--- NOTE | 2017-04-19 15:46 | RAD ---
HISTORY: Altered mental status COMPARISONS: September 04, 2016 VIEWS:1: frontal portable view of the chest at 3:28 PM FINDINGS: LINES AND TUBES: None. CARDIOMEDIASTINAL SILHOUETTE: The cardiomediastinal silhouette is normal for portable technique. PLEURA: The costophrenic angles are sharp. No pleural abnormalities are noted. LUNG PARENCHYMA: The lungs are clear. ABDOMEN: The upper abdomen is clear. There is no subphrenic gas. BONES AND SOFT TISSUES: No bone or soft tissue abnormalities are noted. IMPRESSION: NO ACTIVE CARDIOPULMONARY DISEASE.
[2017-04-19 15:52] LABS: Alcohol 415 mg/dL (<10)
[2017-04-19 15:55] LABS: Urine Bacteria Absent (Absent); Urine Bilirubin Negative (Negative); Urine Glucose Negative (Negative); Urine Nitrite Negative (Negative)
[2017-04-19 15:55] LABS: TSH (Thyroid Stimulating Horm) 1.38 mcIU/mL (0.34-5.60)
[2017-04-19] MEDS ORDERED: LORazepam INJ* 2 MG/ML 1 ML VIAL IV PUSH ONE ×2 (16:00→17:28)
[2017-04-19] MEDS ORDERED: Thiamine IV* 100 MG, Folic Acid IV* 1 MG, Multiple Vitamin IV ADULT* 10 ML in NS 0.9% 1... IV ONE (16:25)
[2017-04-19] MEDS ORDERED: LORazepam INJ* 2 MG/ML 1 ML VIAL ONE (17:09)
[2017-04-19 17:15] LABS: Benzodiazepine Urine Screen None Detected (None Detect)
[2017-04-19] MEDS ORDERED: Ondansetron INJ* 2 MG/ML VIAL IV PRN (17:15)
[2017-04-19] MEDS: LORazepam TAB(*) 1 MG PO SCH ×3 (17:21→20:22)
[2017-04-19] MEDS ORDERED: Potassium Chlor TAB* 20 MEQ TAB.ER PO ONE (17:25)
[2017-04-19] MEDS ORDERED: Thiamine IV* 100 MG/ML 2 ML VIAL ONE (19:56)
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
[2017-04-19] MEDS: NS 0.9% 1000 ML* 1,000 ML IV SCH (22:20)
[2017-04-20] MEDS: LORazepam TAB(*) 1 MG PO SCH ×3 (02:05→22:14)
[2017-04-20 04:04] LABS: Urine Bilirubin Negative (Negative); Urine Glucose Negative (Negative); Urine Nitrite Negative (Negative)
[2017-04-20] MEDS: NS 0.9% 1000 ML* 1,000 ML IV SCH ×2 (06:13→14:27)
[2017-04-20 07:47] LABS: Hematocrit 43 % (42-52); Hemoglobin 14.6 g/dl (14.0-18.0); Mean Corpuscular HGB Conc 34 g/dl (31-36); Mean Corpuscular Hemoglobin 30 pg (27-31); Mean Corpuscular Volume 89 fL (80-94); Mean Platelet Volume 7 um3 (7.4-10.4); Red Blood Count 4.87 10^6/ul (4.0-5.4); Red Cell Distribution Width 14 % (10.5-15); White Blood Count 5.7 10^3/ul (3.5-10.8)
[2017-04-20 08:28] LABS: Albumin 3.8 g/dL (3.2-5.2); BUN/Creatinine Ratio 6.3 (8-20); Calcium 8.8 mg/dL (8.6-10.3); EGFR African American 115.3 (>60); EGFR Non-African American 89.7 (>60); Globulin 2.7 g/dL (2-4); Potassium 4.1 mmol/L (3.5-5.0); Total Bilirubin 0.5 mg/dL (0.2-1.0); Total Protein 6.5 g/dL (6.4-8.9)
[2017-04-20] MEDS: Thiamine TAB* 100 MG TAB PO SCH (09:47)
[2017-04-20] MEDS: Multivitamins/Minerals TAB PO SCH (09:48)
[2017-04-20] MEDS: Folic Acid TAB* 1 MG PO SCH (09:48)
--- NOTE | 2017-04-20 15:43 | PN ---
Subjective Date of Service: 04/20/17 Interval History: Patient seen and examined at bedside. Pt wakes to his name, states he feels tired. Denies fever, chills, shortness of breath, chest discomfort, N/V/D. Pt states that he didn't eat lunch because he was tired and sleeping. Pt noted to have diaphoresis, but denies sweating. Family History: Unchanged from Admission Social History: Unchanged from Admission Past Medical History: Unchanged from Admission Objective Active Medications: Folic Acid (Folvite Tab*) 1 mg PO DAILY [facility] Sodium Chloride (Ns 0.9% 1000 Ml*) 1,000 mls @ 125 mls/hr IV PER RATE MASHA Lorazepam (Ativan Tab(*)) 0 mg PO .PER WAM SCORE [facility] Reason: Protocol Lorazepam (Ativan Tab(*)) 2 mg PO Q12H [facility] Stop: 04/22/17 13:59 Multivitamins/Minerals (Theragran/Minerals Tab*) 1 tab PO DAILY [facility] Ondansetron HCl (Zofran Inj*) 4 mg IV Q6H PRN Reason: NAUSEA Thiamine HCl (Vitamin B-1 Tab*) 100 mg PO DAILY [facility] Vital Signs 04/19/17 04/19/17 04/19/17 18:52 19:15 19:33 Temperature 97.8 F 98.2 F Pulse Rate 100 109 Respiratory 28 20 20 Rate Blood Pressure 115/82 124/86 (mmHg) O2 Sat by Pulse 96 93 Oximetry 04/19/17 04/19/17 04/19/17 20:22 21:00 21:22 Temperature 98.2 F Pulse Rate 96 Respiratory 20 18 18 Rate Blood Pressure 106/67 (mmHg) O2 Sat by Pulse 94 Oximetry 04/19/17 04/19/17 04/19/17 22:22 23:00 23:38 Temperature 97.3 F Pulse Rate 94 Respiratory 19 20 20 Rate Blood Pressure 118/61 (mmHg) O2 Sat by Pulse 94 Oximetry 04/20/17 04/20/17 04/20/17 01:00 01:30 02:05 Temperature 98.3 F Pulse Rate 92 Respiratory 24 20 28 Rate Blood Pressure 110/64 (mmHg) O2 Sat by Pulse 92 Oximetry 04/20/17 04/20/17 04/20/17 03:00 03:29 04:05 Temperature Pulse Rate 105 Respiratory 16 16 21 Rate Blood Pressure 117/78 (mmHg) O2 Sat by Pulse 91 Oximetry 04/20/17 04/20/17 04/20/17 04:59 05:00 08:00 Temperature 97.9 F 99.4 F Pulse Rate 100 90 Respiratory 21 21 22 Rate Blood Pressure 126/84 125/94 (mmHg) O2 Sat by Pulse 91 92 Oximetry 04/20/17 04/20/17 04/20/17 08:30 09:10 09:46 Temperature 100.1 F Pulse Rate 105 Respiratory 20 22 Rate Blood Pressure 135/93 (mmHg) O2 Sat by Pulse 91 95 Oximetry 04/20/17 04/20/17 04/20/17 11:07 11:46 13:38 Temperature 99.7 F 97.8 F Pulse Rate 101 95 Respiratory 20 20 16 Rate Blood Pressure 119/82 139/86 (mmHg) O2 Sat by Pulse 96 100 Oximetry Oxygen Devices in Use Now: None Appearance: NAD, laying in bed Ears/Nose/Mouth/Throat: Mucous Membranes Moist Respiratory: Symmetrical Chest Expansion and Respiratory Effort, Clear to Auscultation Cardiovascular: NL Sounds; No Murmurs; No JVD, RRR Abdominal: NL Sounds; No Tenderness; No Distention Extremities: No Edema Skin: No Rash or Ulcers Neurological: Alert and Oriented x 3, NL Muscle Strength and Tone Lines/Tubes/Other Access: Clean, Dry and Intact Peripheral IV - site benign Nutrition: Taking PO's Result Diagrams: 04/20/17 07:32 04/20/17 07:32 Assess/Plan/Problems-Billing Assessment: Mr. Anthony is a 32 yo male with PMH significant for alcohol abuse, depression and bipolar who presented to the emergency room for alcohol abuse. - Patient Problems (1) Alcohol withdrawal Code(s): F10.239 - ALCOHOL DEPENDENCE WITH WITHDRAWAL, UNSPECIFIED SNOMED Code (s): 002185232 Comment: - Patient scoring on WAM protocol (1-4 overnight). - Patient on lorazepam taper, and not requiring additional lorazepam on assessments. - Paitent is diaphoretic and tremulous. - Seizure precautions. - Continue WAM protocol with PRN lorazepam, folate, MVI, thiamine. - / eval pending. (2) Alcohol dependence Code(s): F10.20 - ALCOHOL DEPENDENCE, UNCOMPLICATED SNOMED Code(s): 54361296 (3) Elevated LFTs Code(s): R79.89 - OTHER SPECIFIED ABNORMAL FINDINGS OF BLOOD CHEMISTRY SNOMED Code(s): 399295658 Comment: - Suspect in the setting of alcohol use (4) Depressive disorder Code(s): F32.9 - MAJOR DEPRESSIVE DISORDER, SINGLE EPISODE, UNSPECIFIED SNOMED Code(s): 70903492 Comment: - Appears stable, home medications continued (5) History of bipolar disorder Code(s): Z86.59 - PERSONAL HISTORY OF OTHER MENTAL AND BEHAVIORAL DISORDERS SNOMED Code(s): 223897176 Comment: - Continue home medications (6) DVT prophylaxis Code(s): GGF2721 - SNOMED Code(s): 964919404 Comment: - SCDs (7) Full code status Code(s): Z78.9 - OTHER SPECIFIED HEALTH STATUS SNOMED Code(s): 302046781 Status and Disposition: OBV to Inpatient. Social work and psychiatry consults pending.
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
--- NOTE | 2017-04-20 17:01 | PN ---
Progress Note - Progress Note Note: I was asked to see Mr. Anthony in room 450-medical for a capacity determination to see if he can refuse Rehab. Patient was in deep sleep and needed to aroused. At first he wasn't able to talk and later participated with some difficulty due to somnolence. He new where is he now and wasn't sure why was he here. However, understood that he was intoxicated prior to coming to the hospital. Understands the risk involved in drinking while taking psychotropic meds. Also uderstands that excessive drinking can be fatal. He wasn't sure if he wants Rehab and then agrees to go for rehab. He sees Dr. Peralta who prescribes his psychotropic meds for a diagnosis of Bipolar 1 d/o. This is an obese whie mate who is alert and oriented to time, place and person. There is no evidence of thoughts or perceptual disturbances. Average intelligence with intact cognitive/ memory functions. Patient at this time has mental capacity to make a reasoned decision for rehab for his Alcohol use d/o.
[2017-04-21] MEDS: NS 0.9% 1000 ML* 1,000 ML IV SCH ×2 (02:28→10:06)
[2017-04-21 05:55] LABS: Albumin 3.6 g/dL (3.2-5.2); BUN/Creatinine Ratio 11.4 (8-20); EGFR African American 127.5 (>60); EGFR Non-African American 99.1 (>60); Globulin 2.6 g/dL (2-4); Potassium 3.5 mmol/L (3.5-5.0); Total Bilirubin 0.8 mg/dL (0.2-1.0); Total Protein 6.2 g/dL (6.4-8.9)
[2017-04-21] MEDS: Thiamine TAB* 100 MG TAB PO SCH (08:55)
[2017-04-21] MEDS: Multivitamins/Minerals TAB PO SCH (08:55)
[2017-04-21] MEDS: Folic Acid TAB* 1 MG PO SCH (08:55)
[2017-04-21] MEDS: LORazepam TAB(*) 1 MG PO SCH (09:55)
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
[2017-04-21 16:25] VITALS: BP 131/90
--- NOTE | 2017-04-22 11:55 | DS ---
CC: Dali Ely MD* DISCHARGE SUMMARY: DATE OF ADMISSION: 04/19/17 DATE OF DISCHARGE: 04/21/17 ATTENDING PHYSICIAN: Dr. Bayron Santana * (dictated by Catherine Griffin NP). PRIMARY CARE PROVIDER: Dali Ely MD PRIMARY DIAGNOSES: 1. Alcohol abuse. 2. Depression. 3. Elevated LFTs. SECONDARY DIAGNOSES: 1. Bipolar disorder. 2. History of alcoholic hepatitis. CONSULTATIONS WHILE IN THE HOSPITAL: Dr. Christine Medina with Psychiatry. STUDIES WHILE IN THE HOSPITAL: 1. Brain CT on 04/19/17. Radiologist's impression: No acute intracranial pathology. 2. Cervical spine CT on 04/19/17. Radiologist's impression: No acute osseous injury to the cervical spine. 3. Chest x-ray from 04/19/17. Radiologist's impression: No acute cardiopulmonary disease. DISCHARGE MEDICATIONS: New medications: 1. Folic acid 1 mg oral daily. 2. Thiamine 100 mg oral daily. 3. Multivitamin 1 tablet oral daily. 4. Lorazepam 2 mg oral this evening, followed by 1 mg oral q.12h. tomorrow, then discontinue, for seizure prophylaxis. Medications deferred to Psychiatry: 1. Lamictal. 2. Invega Sustenna. 3. Remeron. 4. Latuda. HISTORY OF PRESENT ILLNESS/HOSPITAL COURSE: Mr. Anthony is a 32-year-old male with past medical history significant for alcoholism, hypertension, bipolar disorder, alcoholic hepatitis, and past suicide attempts who presented to the emergency room for evaluation as his father was concerned that the patient was staggering in the house. The patient had just been discharged on the day prior on April 18, the patient admitted to drinking five Molson Tallboys upon returning home. The patient had refused rehabilitation or any type of help with sobriety with the exception of AA when he was discharged prior. While in the emergency room, the patient was found to have blood alcohol level of 415. He was also belligerent in the emergency room. He had denied suicidal ideation in the emergency room. He had a brain CT, cervical spine CT, all without acute findings. The patient also had a chest x-ray without acute findings. Hospitalists were asked to evaluate the patient for admission due to his history of past DTs. While in the hospital, the patient was placed on a WAM protocol. He was not needing much medication for this. He was also placed on Ativan, seizure taper protocol. The patient had no signs of seizures. The patient also received a banana bag. The patient had a psychiatric consult who felt that the patient was competent to make his own decision to decline alcohol rehab by Dr. Medina. This morning, the patient's primary care provider, Dr. Ely in addition to the patient's father called with concerns over some passive statements that the patient had made such as wishing he had not woke up after drinking all of that alcohol. The patient had a repeat mental health evaluation and it was felt that the patient would best be served by involuntary admission to the mental health unit as he was not willing to go voluntarily. Mr. Anthony is stable for discharge to the behavioral services unit today. Vital signs are as follows, temperature 98.4, heart rate 86, respiratory rate 20 , O2 sat 95% on room air, blood pressure 131/90. DISCHARGE PLAN: Mr. Anthony will be discharged to the mental health unit. ACTIVITY: As tolerated. As far as the patient's medications for depression and bipolar, I will defer any medications ordered to the psychiatry team. As far as the patient's alcohol withdrawal, I recommend completing the Ativan protocol. He needs a dose of 2 mg of Ativan this evening followed by 1 mg of Ativan q.12 hours tomorrow and then discontinue the protocol. I recommend continuing the patient on thiamine, multivitamin and folic acid. The patient should be seen in follow up by his primary care provider Dr. Ely once he is discharged from the behavioral services unit. This is a summarized report of a complex medical history and hospital stay. For further details, please see the entire medical record. Time for this discharge was 50 minutes and greater than half of that was spent face- to-face with the patient discussing discharge plans and instructions, in addition to speaking with the patient's father on the phone. CONDITION ON DISCHARGE: Stable. CATHERINE CABRAL, PORTER [id number]/[facility] #: [id number] ESTHELA
[2017-04-22 12:27] LABS: Lamotrigine 1.5 mcg/mL (2.5 - 15.0)
== END 2017-04-21 16:50 | DRG 897 ==
LOC: ED 14:37 → MEDTELE 18:13 → OBSVTOIN 04-20 15:43
PROVIDERS: ADMIT Hospitalist; ATTEND Internal Medicine
DX: F10.239 Alcohol dependence with withdrawal, unspecified (principal); F31.9 Bipolar disorder, unspecified; I10 Essential (primary) hypertension; F32.9 Major depressive disorder, single episode, unspecified; Y90.8 Blood alcohol level of 240 mg/100 ml or more; F41.9 Anxiety disorder, unspecified; Z81.1 Family history of alcohol abuse and dependence; Z56.0 Unemployment, unspecified; E66.9 Obesity, unspecified; Z68.32 Body mass index [BMI] 32.0-32.9, adult
CPT/HCPCS: 36415; 70450; 71010; 72125; 80053; 80175; 80307; 80320; 80329; 81003; 81015; 82010; 82803; 84443; 85025; 85610; 87086; 94760; A9270-GY; G0378; G0480; J2060

== ENCOUNTER 2017-04-21 13:09 | Inpatient (IN) | payer OTHER ==
[2017-04-21] MEDS ORDERED: Acetaminophen TAB* 325 MG PO PRN (20:04)
[2017-04-21] MEDS ORDERED: Al Hydrox/Mg Hydrox/Simet LIQ* 30 ML UDC PO PRN (20:04)
[2017-04-21] MEDS: LURASIDONE 80 MG PO SCH (20:15)
[2017-04-21] MEDS: lamoTRIgine TAB(*) 100 MG PO SCH (20:15)
[2017-04-21] MEDS ORDERED: LORazepam TAB(*) 1 MG PO SCH (22:00)
[2017-04-22] MEDS ORDERED: Mouth Piece, Nicotine* 1 EACH CARTRIDGE ONE (08:59)
[2017-04-22] MEDS ORDERED: Nicotine Inhaler* 10 MG AMP ONE (08:59)
[2017-04-22] MEDS ORDERED: Mirtazapine TAB* 15 MG PO SCH ×2 (09:00→21:00)
[2017-04-22] MEDS: Nicotine Inhaler* 10 MG AMP INH PRN ×3 (09:00→20:08)
[2017-04-22] MEDS: Multivitamins/Minerals TAB PO SCH (09:00)
[2017-04-22] MEDS: Folic Acid TAB* 1 MG PO SCH (09:00)
[2017-04-22] MEDS: Thiamine TAB* 100 MG TAB PO SCH (09:00)
[2017-04-22] MEDS: CMC:Naltrexone (NF) 50 MG TAB PO SCH (09:29)
--- NOTE | 2017-04-22 11:12 | HP ---
DATE OF ADMISSION: 04/21/2017. IDENTIFYING DATA: Bigg Anthony is a 32-year-old, domiciled, employed male with a history of severe chronic alcohol use disorder, psychiatric and medical sequelae and a history of suicidal behavior, diagnosis of bipolar disorder and multiple psychiatric hospitalizations. He is admitted to the Psychiatric Unit on an emergency basis after his second hospital admission for alcohol related problems and due to concern over apparent expressions of passive wishes. HISTORY OF PRESENT ILLNESS: Bigg was last admitted to our psychiatric unit in October of 2016. He denies hospitalizations since then or rehabilitations and denies suicide attempts. He reports he has been in ongoing outpatient psychiatric care at [facility] and adherent with his medications. He estimated that he was abstinent from alcohol approximately three-quarters of the time since August, but that has fallen off in the last month with a binge drinking pattern. It has resulted in two medical hospitalizations at [facility]. He was detoxified on the Hospitalist Service. I received collateral information from Bigg's psychiatrist, Dr. Marium Peralta, at [facility] who said that input from the patient's father and primary care provider was that he was out of control and at risk and that the crisis needed to be interrupted. She was supportive of his psychiatric hospitalization and she identified a risk concern in that his father reported that he had made expressions of not wanting to wake up or wanting to on an occasion in recent weeks. Bigg says he cannot recall those statements. He denies current wishes and denies unmanageable emotional pain. He reports feeling generally down over the last six months with low self-esteem and some feelings of hopelessness. He noted that he has engaged constructively at work, does not see his drinking as interfering with performance there, and feels like he has some things going for him. He denied wishes or urges to harm himself. He denied current emotional pain or distress. He was hopeful for a brief psychiatric hospitalization, noting having to get back to work. He reports chronic anxiety. Says it has been relatively higher in recent months. He notes it is somatic feeling of anxiety and it is not necessarily accompanied by a lot worry and irrational thoughts. He worked with Dr. Peralta on it and that was part of the objective with starting Remeron treatment. He acknowledged having a complex polypharmacy medication regimen and I reviewed some of the risks he is exposed to with it, including metabolic problems. He was agreeable with getting monitoring laboratory studies while here. I reviewed his prior experience with medicines that support sobriety, specifically Antabuse, Naltrexone and Campral and he elected to pursue a retrial of Naltrexone. I reviewed the medicine's profile and the objectives for its use. He was appreciated for care and support and acknowledged the need to interrupt his crisis. That notwithstanding, he did advocate for as brief a hospitalization as possible and was amenable to the idea of planning a couple of days of observation on the unit. PREVIOUS PSYCHIATRIC HISTORY: Numerous psychiatric hospitalizations. He was admitted to our facility in 2011, 2012, 2014, and 2016. He has also been hospitalized at multiple other facilities. He has had numerous medical admissions due to complications of alcohol use and our psychiatric service has provided consultation while he has been in medical care at [facility]. He has carried a diagnosis of bipolar disorder and has apparently had manic features in the past or reported them. This has not been our direct clinical observation and psychological testing at our facility did not show a pattern consistent with bipolar spectrum profile, rather it showed a pattern of social difficulties, isolation and alienation and over-reporting of psychopathology. He has been considered for schizoid personality traits, but this did not necessarily seem to be consistent with the patient's more remote history of ( better) social functioning. Previous medication trials have included [place], multiple antidepressants, Buspirone, Naltrexone, Antabuse, and Campral. He has had outpatient mental health treatment in private practice and also at [facility] and [facility] at [facility]. He has reported two suicide attempts by overdose years ago in the setting of alcohol intoxication. PAST MEDICAL HISTORY: No chronic disease. CURRENT OUTPATIENT MEDICATION REGIMEN: 1. Lamictal 200 mg at bedtime. 2. Invega Sustenna 156 mg injected each month. 3. Mirtazapine 15 mg per day. 4. Lurasidone 80 mg at bedtime. ALLERGIES: No known drug allergies. SUBSTANCE USE HISTORY: Alcohol has been a critical and chronic problem. Bigg began drinking in high school and the abuse of alcohol became problematic in his early 20s. He has had extended periods of time of drinking on a near daily basis. He has had previous formal inpatient rehabilitations in 2010 and 2012, the latter at the [facility]. In the past, he has had outpatient programming at [facility] and the [facility] [place]. He has had medical interventions with Campral, Antabuse, and Naltrexone. He has had severe withdrawal symptoms with apparent DT's in the past and requirement for detoxification. SOCIAL HISTORY: Bigg was born in [place], [place] from an intact family. His parents are still supportive. He grew up in [place], [place]. He has an older sister. He has previously reported a good childhood upbringing and has done very well academically. 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 He has reported having a small kasaan of friends and is not identified as a very outgoing person. He was sexually active and dated in the past and has found it satisfactory. He is nominally affiliated with the [employer]. MENTAL STATUS EXAMINATION: Heavy-set, early middle-aged, male who is fairly well-kempt in casual clothing. He is cooperative with the examination. He has normal psychomotor activity, is a little tremulous. He is poorly related. He maintains good eye contact. Speech is nonspontaneous. It is somewhat terse. Mood is described as "okay." Affect is somewhat tense, mildly dysphoric. Thought process is coherent and goal directed. Thought content negative for current suicidal, homicidal or paranoid ideation. Sensorium is clear. He is alert and oriented times three. Insight and judgment is fair and impulse control is intact. REVIEW OF SYSTEMS: Noncontributory. PHYSICAL EXAMINATION This is an update to the history and physical associated with Bigg's recent Hospitalist admission. There is no indication for an updated physical examination. VITAL SIGNS: Temperature 98.4, blood pressure 141/94, pulse 106, respiratory rate 16. PERTINENT LABORATORY STUDIES: Blood alcohol level on April 19 was 415. CLINICAL SUMMARY: Qehjav-srcs-xbqo-old male with a history of severe chronic alcohol use disorder, multiple psychiatric hospitalizations, suicidal behavior and consideration for bipolar disorder. He presents in a subacute crisis with [id number] drinking, impairment, mood symptoms, anxiety, and some level of apparent recent passive suicidal commentary. At this time, he is through detoxification and appears to have mild mood and anxiety symptoms. He is not actively suicidal. He has merited psychiatric hospitalization for immediate safety, evaluation, stabilization and treatment planning. I do believe it will be appropriate to accommodate his request for a brief hospitalization as his acute impairment is resolving. ADMISSION DIAGNOSES: Alcohol use disorder, chronic and severe with induced mood symptoms and withdrawal; mood disorder, not otherwise specified; bipolar disorder by history. TREATMENT PLAN: Admit to the Psychiatric Unit on an emergency basis, code status is full, safety checks are at 15 minute intervals, initiate comprehensive group milieu and individual psychotherapeutic supports. Medication management will involve continuing the outpatient medication regimen and providing Naltrexone for alcohol use disorder. Estimated length of stay is two to three days. Discharge planning will involve coordination with appropriate aftercare. The patient's strengths are his intact intellectual functioning, adequate baseline health, and ability to maintain clinical alliance. [id number]/[facility] #: [id number] ESTHELA
[2017-04-22] MEDS: LURASIDONE 80 MG PO SCH (20:09)
[2017-04-22] MEDS: lamoTRIgine TAB(*) 100 MG PO SCH (20:09)
[2017-04-23 07:48] VITALS: BP 127/86
[2017-04-23 08:02] LABS: HDL Cholesterol 65.9 mg/dL
[2017-04-23] MEDS: Multivitamins/Minerals TAB PO SCH (08:28)
[2017-04-23] MEDS: CMC:Naltrexone (NF) 50 MG TAB PO SCH (08:28)
[2017-04-23] MEDS: Nicotine Inhaler* 10 MG AMP INH PRN ×2 (08:28→13:19)
[2017-04-23] MEDS: Thiamine TAB* 100 MG TAB PO SCH (08:28)
[2017-04-23] MEDS: Folic Acid TAB* 1 MG PO SCH (08:29)
--- NOTE | 2017-04-23 09:37 | DS ---
Subjective - Subjective Service Types: [address] [facility] Day Mgmt simple under 30 min Discharge Date: 04/23/17 Subjective: Aneudy maintained a request for release today. He denies subjective withdrawal symptoms or difficulties going without Ativan. He affirmed he's safe, with no suicidal thoughts. He denied emotional pain, troubling anxiety, or difficulty coping. He was forward thinking, eager to get to work. He declined referrals to rehab, or outpatient specialized substance use programs , saying he would increase his use of AA (said he had not used it in a couple of years). I assessed and supported his motivation: he frames recent hospitalizations as an experience that has increased his internal sense of priority on sobriety. He acknowledges that he did not want to avoid drinking leading up to it. He somewhat superficially says he believes he has all the resources to succeed. I left a detailed VM message for Dr. Peralta, with info. on Bigg's course, current status, medication addition, and his decision on additional services, and plan for more AA access. Objective - Appearance Appearance: Obese Hygiene: Normal Grooming: Well Kept - Behavior Psychomotor Activities: Normal - Attitude and Relatedness Attitude and Relatedness: Superficially Cooperative Eye Contact: Good - Speech Quality: Unpressured Latencies: Normal Quantity: Appropriate - Mood Patient's Decription of Mood: "Anxious" - Affect Observed Affect: Non-labile Affect Consistent with: Dysphoria - very mild - Thought Process Patient's Thought Process: Coherent, Goal Directed Thought Content: No Passive Wish, No Suicidal Planning, No Homicidal Ideation, No Paranoid Ideation - Sensorium Experiencing Hallucinations: No, Sensorium is Clear - Level of Consciousness Level of Consciousness: Alert - Impulse Control Impulse Control: Intact - Insight and Judgement Insight and Judgement: Fair Treatment Course & Assessment Clinical Course & Impression: Mjlfsp-wltm-bxvg-old male with a history of severe chronic alcohol use disorder , multiple psychiatric hospitalizations, suicidal behavior and consideration for bipolar disorder. He presents in a subacute crisis with nts-wv-osilcbv drinking, impairment, mood symptoms, anxiety, and some level of apparent recent passive suicidal commentary. 04/23/17 Clear for release. Bigg was stable behaviorally here. Clinically, all symptoms were mild and not impairing. He has progressed through detoxification and appears to have mild mood and anxiety symptoms. He was safe on checks and at no point actively suicidal. Given his unimpaired state it is appropriate to accommodate his request for release. Medication management involves continuing the outpatient medication regimen and providing Naltrexone for alcohol use disorder. Discharge planning considered referral to rehab or specialized services but Aneudy declined. We made motivational approaches, his current priority on sobriety is stated, superficially, as higher, but prognosis for recovery is guarded. I am not convinced much has changed for Aneudy with his hospital experience. Risk concern centers on suicide risk and risk of inadvertent harm. Currently, based on corrected acute impairment, low symptom burden, and benign behavior, the acute risk of suicide and unintentional harm is low. On a longer term basis, due to his condition and history, Bigg is at high risk for adverse outcomes, including suicide, medical problems, and inadvertent/accidental harm. Acute risk is generally higher in relapse. Clear for Discharge: Adequate Clinical Respons, Acceptable Safety Profile, Low Utility of In Care Inpatient DSM-IV Dx: Alcohol use disorder, chronic and severe with induced mood symptoms and withdrawal; mood disorder, not otherwise specified; bipolar disorder by history. Discharge Planning - Discharge Planning Discharge Plan: Outpatient Follow Up Outpatient Program: [facility] Recommendations for Continuing Care: Medication Management, Psychotherapy, Substance Abuse Counseling, Routine Metabolic Monitoring Medications: Current Medications Lamotrigine (Lamictal Tab(*)) 200 mg PO BEDTIME [facility] Last Admin: 04/22/17 20:09 Dose: 200 mg Lurasidone HCl (Latuda (Nf)) 80 mg PO BEDTIME [facility] Last Admin: 04/22/17 20:09 Dose: Not Given Mirtazapine (Remeron Tab*) 15 mg PO BEDTIME [facility] Last Admin: 04/22/17 20:09 Dose: 15 mg Naltrexone HCl (Naltrexone (Nf)) 50 mg PO DAILY [facility] PRN Reason: Protocol Last Admin: 04/23/17 08:28 Dose: 50 mg Paliperidone Palmitate (Invega Sustenna*) 156 mg IM Q28H [facility] Discharge Planning: Prescriptions provided for discharge [x] Yes Naltrexone Follow up care details as per social work arrangements. Patient response to discharge plan: [x] eager for discharge [] agreeable with discharge plan [] ambivalent about discharge [] disagrees with discharge today
[2017-04-23] MEDS ORDERED: CMC:Lurasidone (NF) 40 MG TAB PO SCH (21:00)
[2017-04-25] MEDS ORDERED: Paliperidone SUSTENNA* 156 MG/1 ML IM SCH (21:00)
== END 2017-04-23 13:45 | disposition home or self-care (01) | DRG 897 ==
LOC: BSU 16:57
PROVIDERS: ADMIT Psychiatry & Neurology Psychiatry; ATTEND Psychiatry & Neurology Psychiatry
DX: F10.14 Alcohol abuse with alcohol-induced mood disorder (principal); F10.239 Alcohol dependence with withdrawal, unspecified; F31.9 Bipolar disorder, unspecified; Z79.899 Other long term (current) drug therapy
CPT/HCPCS: 36415; 80061; 83036; 99222; 99238; A9270-GY

== ENCOUNTER 2017-07-04 18:12 | Emergency (ER) | payer OTHER ==
--- NOTE | 2017-07-04 18:43 | ED ---
Juan Dukes Angela, scribed for Colt Aviles MD on 07/04/17 at 1832 . Substance Abuse/Use - HPI Summary HPI Summary: This pt is a 32 y/o male presenting to [facility] s/p drinking too much alcohol. Per EMS, the pt called his parents at 9:30 AM today and told them that he was going to drink. By the time his parents got to him, the pt was unresponsive. Pt denied taking any other drugs. Pt's parents are concerned he has not been taking his medication. Pt has a history of bipolar disorder and drinking problem. History is limited due to level 5 caveat- alcohol abuse. - History Of Current Complaint Stated Complaint: ETOH Time Seen by Provider: 07/04/17 18:18 Hx Obtained From: Patient, EMS Hx From Patient Unobtainable Due To: Other - LEVEL 5 CAVEAT - alcohol use - Allergies/Home Medications Allergies/Adverse Reactions: Allergies Allergy/AdvReac Type Severity Reaction Status Date / Time No Known Allergies Allergy Verified 04/21/17 21:52 PMH/Surg Hx/FS Hx/Imm Hx Endocrine/Hematology History: Denies: Hx Anticoagulant Therapy, Hx Diabetes, Hx Thyroid Disease Cardiovascular History: Denies: Hx Hypertension, Hx Pacemaker/ICD Respiratory History: Denies: Hx Asthma, Hx Chronic Obstructive Pulmonary Disease (COPD) History: Reports: Hx Acute Renal Failure Denies: Hx Renal Disease Sensory History: Denies: Hx Contacts or Glasses, Hx Hearing Aid Opthamlomology History: Denies: Hx Contacts or Glasses Neurological History: Denies: Hx Dementia, Hx Seizures Psychiatric History: Reports: Hx Anxiety, Hx Depression, Hx Inpatient Treatment , Hx Community Mental Health Tx, Hx Bipolar Disorder - Type 1, Hx Suicide Attempt, Hx of Violent Episodes Against Others - PT denies hx of violence against others, Hx Substance Abuse Denies: Hx Attention Deficit Hyperactivity Disorder, Hx Eating Disorder, Hx Panic Disorder, Hx Post Traumatic Stress Disorder, Hx Schizophrenia, Other Psychiatric Issues/Disorders - Immunization History Date of Tetanus Vaccine: UTD Date of Influenza Vaccine: UTD Infectious Disease History: Denies: Hx Clostridium Difficile, Hx Hepatitis, Hx Human Immunodeficiency Virus (HIV), Hx Shingles, Hx Tuberculosis, Traveled Outside the [place] in Last 30 Days - Family History Known Family History: Positive: Other - alcoholism Family History: PATIENT IS A LEVEL 5 CAVEAT DUE TO SUBSTANCE ABUSE - Social History Alcohol Use: Daily Alcohol Amount: 18-20 beers per day Hx Substance Use: No Substance Use Type: Reports: None Hx Tobacco Use: No Smoking Status (MU): Never Smoked Tobacco Amount Used/How Often: Pt has not used any tobacco products in the last 30 days Have You Smoked in the Last Year: No Review of Systems All Other Systems Reviewed And Are Negative: No - Comments Additional Review of Systems Comments: ROS limited due to LEVEL 5 CAVEAT - ALCOHOL USE. Physical Exam Triage Information Reviewed: Yes Vital Signs Reviewed: Yes Completion Of Physical Exam Limited Due To: Level 5 - s/p alcohol abuse Course/Dx - Course Course Of Treatment: Mr. Anthony was brought in by EMS after being found unresponsive by his parents. He did awaken eventually and admitted to drinking ETOH but no other drugs. He is currently cooperative, monitored and labs have been sent. - Diagnoses Provider Diagnoses: Alcohol intoxication Discharge - Discharge Plan Condition: Stable Disposition: OTHER Discharge Disposition Comment: Change of shift. Referrals: Dali Ely MD [Primary Care Provider] - The documentation as recorded by the Juan byrne Angela accurately reflects the service I personally performed and the decisions made by me, Colt Aviles MD.
[2017-07-04] MEDS ORDERED: LORazepam TAB(*) 1 MG PO ONE (19:20)
[2017-07-04] MEDS ORDERED: LORazepam TAB(*) 1 MG ONE (19:23)
[2017-07-04] MEDS ORDERED: Haloperidol INJ IV/IM* 5 MG/ML AMP IM ONE (19:30)
[2017-07-04] MEDS ORDERED: LORazepam INJ* 2 MG/ML 1 ML VIAL IV PUSH ONE (19:30)
[2017-07-04] MEDS ORDERED: diPHENhydraMINE IV* 50 MG/ML 1 ml VIAL (BENADRYL) IM ONE (19:30)
[2017-07-04 19:53] LABS: Benzodiazepine Urine Screen None Detected (None Detect)
[2017-07-05 00:13] LABS: Hematocrit 47 % (42-52); Hemoglobin 16.3 g/dl (14.0-18.0); Mean Corpuscular HGB Conc 35 g/dl (31-36); Mean Corpuscular Hemoglobin 30 pg (27-31); Mean Corpuscular Volume 86 fL (80-94); Mean Platelet Volume 7 um3 (7.4-10.4); Red Blood Count 5.42 10^6/ul (4.0-5.4); Red Cell Distribution Width 14 % (10.5-15); White Blood Count 9.2 10^3/ul (3.5-10.8)
[2017-07-05 00:28] LABS: ALT 24 U/L (7-52); AST 37 U/L (13-39); Albumin 4.4 g/dL (3.2-5.2); Alkaline Phosphatase 98 U/L (34-104); Anion Gap 9 mmol/L (2-11); BUN/Creatinine Ratio 7.6 (8-20); Blood Urea Nitrogen 8 mg/dL (6-24); CO2 Carbon Dioxide 24 mmol/L (22-32); Calcium 9.2 mg/dL (8.6-10.3); Chloride 101 mmol/L (101-111); EGFR Non-African American 80.9 (>60); Globulin 3.4 g/dL (2-4); Glucose 100 mg/dL (70-100); Sodium 134 mmol/L (133-145); Total Protein 7.8 g/dL (6.4-8.9)
[2017-07-05 00:39] LABS: Acetaminophen < 15 mcg/mL; Alcohol 234 mg/dL (<10); Salicylate < 2.50 mg/dL (<30)
[2017-07-05 07:08] VITALS: BP 124/91
== END 2017-07-05 07:08 ==
LOC: ED 18:12
DX: F10.129 Alcohol abuse with intoxication, unspecified (principal)
CPT/HCPCS: 36415; 80053; 80307; 80320; 80329; 83605; 85025; 96374; 96375; 99285; A9270-GY; G0480; J1200; J1630; J2060

== ENCOUNTER 2017-07-31 15:15 | Emergency (ER) | payer OTHER ==
[2017-07-31] MEDS ORDERED: LORazepam INJ* 2 MG/ML 1 ML VIAL IV PUSH ONE ×2 (15:48→17:04)
[2017-07-31 16:01] LABS: Hematocrit 49 % (42-52); Hemoglobin 17.1 g/dl (14.0-18.0); Mean Corpuscular HGB Conc 35 g/dl (31-36); Mean Corpuscular Hemoglobin 30 pg (27-31); Mean Corpuscular Volume 85 fL (80-94); Mean Platelet Volume 7 um3 (7.4-10.4); Red Blood Count 5.75 10^6/ul (4.0-5.4); Red Cell Distribution Width 14 % (10.5-15); White Blood Count 9.3 10^3/ul (3.5-10.8)
[2017-07-31 16:08] LABS: Urine Bilirubin Negative (Negative); Urine Glucose Negative (Negative); Urine Nitrite Negative (Negative)
[2017-07-31] MEDS ORDERED: diPHENhydraMINE IV* 50 MG/ML 1 ml VIAL (BENADRYL) IV ONE (16:12)
[2017-07-31] MEDS ORDERED: diPHENhydraMINE IV* 50 MG in NS 0.9% 50 ML* 50 ML IVPB ONE (16:12)
[2017-07-31 16:15] LABS: ALT 67 U/L (7-52); AST 116 U/L (13-39); Albumin 4.7 g/dL (3.2-5.2); Alkaline Phosphatase 98 U/L (34-104); Anion Gap 15 mmol/L (2-11); BUN/Creatinine Ratio 7.1 (8-20); Blood Urea Nitrogen 7 mg/dL (6-24); CO2 Carbon Dioxide 23 mmol/L (22-32); Calcium 9.4 mg/dL (8.6-10.3); Chloride 93 mmol/L (101-111); EGFR African American 112.6 (>60); EGFR Non-African American 87.6 (>60); Glucose 136 mg/dL (70-100); Potassium 3.8 mmol/L (3.5-5.0); Sodium 131 mmol/L (133-145); Total Protein 8.7 g/dL (6.4-8.9)
[2017-07-31 16:16] LABS: Benzodiazepine Urine Screen None Detected (None Detect)
[2017-07-31] MEDS ORDERED: diPHENhydraMINE IV* 50 MG/ML 1 ml VIAL (BENADRYL) ONE (16:23)
[2017-07-31] MEDS ORDERED: Haloperidol INJ IV/IM* 5 MG/ML AMP ONE (16:23)
[2017-07-31] MEDS ORDERED: Haloperidol INJ IV/IM* 5 MG/ML AMP IV SLOW PU ONE (16:25)
[2017-07-31 16:33] LABS: Acetaminophen < 15 mcg/mL; Alcohol 355 mg/dL (<10); Salicylate < 2.50 mg/dL (<30)
[2017-07-31 16:43] LABS: TSH (Thyroid Stimulating Horm) 1.58 mcIU/mL (0.34-5.60)
[2017-07-31 17:23] VITALS: BP 136/102
[2017-07-31] MEDS ORDERED: Thiamine IV 100 MG, Folic Acid IV* 1 MG, Multiple Vitamin IV ADULT* 10 ML in NS 0.9% 10... IV ONE (17:47)
--- NOTE | 2017-08-01 06:37 | ED ---
Jono Dukes Benjamin, scribed for Diogenes Cortes MD on 07/31/17 at 1931 . Progress - Progress Note Progress Note: 32yo male, signout by Dr. Tripathi, 9.41 case, pending medical clearance. Pt will be cleared medically for Mental Health Evaluation around 2am, when his blood alcohol levels are lower. Course/Dx - Course Course Of Treatment: Pt is medically cleared. Awaiting for collateral information to determine the pt's disposition. Pt will be signed out to Dr. Calles at 0700 hour, due to change of shift. - Diagnoses Provider Diagnoses: Alcohol intoxication The documentation as recorded by the Jono byrne Benjamin accurately reflects the service I personally performed and the decisions made by Sophia otoole Drew, MD.
--- NOTE | 2017-08-04 08:18 | ED ---
Juan Dukes Angela, scribed for Emiliano Calles MD on 08/01/17 at 0902 . Progress - Progress Note Progress Note: This pt was signed out from Dr. Cortes, pending disposition, awaiting MHE. Pt was evaluated by Dr. Howard and has cleared the pt. Dr. Howard recommends discharge at this time. Pt will be discharged home in stable condition with a diagnosis of alcohol intoxication. Course/Dx - Diagnoses Provider Diagnoses: Alcohol intoxication The documentation as recorded by the Juan byrne Angela accurately reflects the service I personally performed and the decisions made by Stevan otoole Walter, MD.
--- NOTE | 2017-08-04 08:18 | ED ---
Juan Dukes Angela, scribed for Emiliano Calles MD on 07/31/17 at 1555 . Substance Abuse/Use - HPI Summary HPI Summary: This pt is a 32 y/o male BIBA on a 941 presenting to [facility] for EtOH intoxication. Pt reports he "is not doing too good." Pt denies SI, HI. Per EMS, pt stated he had 18 beers today. HPI IS LIMITED DUE TO LEVEL 5 CAVEAT - EtOH intoxication - History Of Current Complaint Chief Complaint: EDSubstanceAbuse Stated Complaint: 941 Time Seen by Provider: 07/31/17 15:34 Hx Obtained From: Patient Hx From Patient Unobtainable Due To: Other - LEVEL 5 CAVEAT - EtOH intoxication Ingestion History: Type/Name Of Drug - 18 beers Overdose Characteristics: Oral Associated Signs And Symptoms: Confused Related Hx: Drug/Alcohol Last Used @ - alcohol today - Allergies/Home Medications Allergies/Adverse Reactions: Allergies Allergy/AdvReac Type Severity Reaction Status Date / Time No Known Allergies Allergy Verified 04/21/17 21:52 PMH/Surg Hx/FS Hx/Imm Hx Endocrine/Hematology History: Denies: Hx Anticoagulant Therapy, Hx Diabetes, Hx Thyroid Disease Cardiovascular History: Denies: Hx Hypertension, Hx Pacemaker/ICD Respiratory History: Denies: Hx Asthma, Hx Chronic Obstructive Pulmonary Disease (COPD) History: Reports: Hx Acute Renal Failure Denies: Hx Renal Disease Sensory History: Denies: Hx Contacts or Glasses, Hx Hearing Aid Opthamlomology History: Denies: Hx Contacts or Glasses Neurological History: Denies: Hx Dementia, Hx Seizures Psychiatric History: Reports: Hx Anxiety, Hx Depression, Hx Inpatient Treatment , Hx Community Mental Health Tx, Hx Bipolar Disorder - Type 1, Hx Suicide Attempt, Hx of Violent Episodes Against Others - PT denies hx of violence against others, Hx Substance Abuse Denies: Hx Attention Deficit Hyperactivity Disorder, Hx Eating Disorder, Hx Panic Disorder, Hx Post Traumatic Stress Disorder, Hx Schizophrenia, Other Psychiatric Issues/Disorders - Immunization History Date of Tetanus Vaccine: UTD Date of Influenza Vaccine: UTD Infectious Disease History: Denies: Hx Clostridium Difficile, Hx Hepatitis, Hx Human Immunodeficiency Virus (HIV), Hx Shingles, Hx Tuberculosis - Family History Known Family History: Positive: Other - alcoholism Family History: PATIENT IS A LEVEL 5 CAVEAT DUE TO SUBSTANCE ABUSE - Social History Alcohol Use: Daily Alcohol Amount: 18-20 beers per day Hx Substance Use: No Substance Use Type: Reports: None Hx Tobacco Use: No Smoking Status (MU): Never Smoked Tobacco Amount Used/How Often: Pt has not used any tobacco products in the last 30 days Have You Smoked in the Last Year: No Review of Systems Negative: Fever, Chills Negative: Chest Pain Negative: Shortness Of Breath All Other Systems Reviewed And Are Negative: Yes - Comments Additional Review of Systems Comments: ROS IS LIMITED DUE TO LEVEL 5 CAVEAT - EtOH intoxication Physical Exam - Summary Physical Exam Summary: VITAL SIGNS: Reviewed. GENERAL: Patient is a well-developed and nourished male. Patient is not in any acute respiratory distress. HEAD AND FACE: No signs of trauma. ~No ecchymosis, hematomas or skull depressions. No sinus tenderness. EYES: PERRLA, EOMI x 2, No injected conjunctiva, no nystagmus. EARS: Hearing grossly intact. Ear canals and tympanic membranes are within normal limits. MOUTH: Oropharynx within normal limits. NECK: Supple, trachea is midline, no adenopathy, no JVD, no carotid bruit, no c- spine tenderness, neck with full ROM. CHEST: Symmetric, no tenderness at palpation LUNGS: Clear to auscultation bilaterally. No wheezing or crackles. CVS: Regular rate and rhythm, S1 and S2 present, no murmurs or gallops appreciated. ABDOMEN: Soft, non-tender. No signs of distention. No rebound no guarding, and no masses palpated. Bowel sounds are normal. EXTREMITIES: FROM in all major joints, no edema, no cyanosis or clubbing. NEURO: Alert and oriented x 3. No acute neurological deficits. Speech is normal and follows commands. SKIN: Dry and warm Triage Information Reviewed: Yes Vital Signs Reviewed: Yes Completion Of Physical Exam Limited Due To: Level 5 - EtOH intoxication Diagnostics - Laboratory Result Diagrams: 07/31/17 15:49 07/31/17 15:49 Lab Statement: Any lab studies that have been ordered have been reviewed, and results considered in the medical decision making process. Re-Evaluation - Re-Evaluation First Eval Re-Evaluation Time: 17:10 Comment: The pt continues to be agitated and is screaming. Pt was given additionally 2 mL of Ativan. Course/Dx - Course Assessment/Plan: This pt is a 32 y/o male BIBA on a 941 presenting to [facility] for EtOH intoxication. Pt reports he "is not doing too good." Pt denies SI, HI. Per EMS, pt stated he had 18 beers today. HPI IS LIMITED DUE TO LEVEL 5 CAVEAT - EtOH intoxication. At about 1630 we put 4 restraints because the pt is a danger to himself and to others. The restraints are in place, there is no swelling of the hands or feet. There is good capillary refill. Reassessment at 1710, the pt is still very agitated and is screaming. Pt was given additionally 2 mL of Ativan. Test results are without any significant abnormalities, except for sodium of 131, glucose of 136, and increased LFTs. UA is negative for UTI. Serum alcohol of 355. The pt was agitated and a danger to himself and others, therefore he was given Haldol. The pt was given an additional dose of Ativan. Initially,the pt was placed in 4 restraints, but an hour later the restraints were removed. Pt is sleeping comfortably now. The pt was given IV fluids and a banana bag. Pt will be signed out to Dr. Cortes, to follow up medically, pending disposition, awaiting MHE. When the pt is sober he can be medically cleared for mental health evaluation. Pt has to be reassessed by MHE as he currently denies SI and HI. - Diagnoses Provider Diagnoses: Alcohol intoxication Discharge - Discharge Plan Condition: Stable Disposition: OTHER Discharge Disposition Comment: signed out to Dr. Cortes, pending dispo, awaiting medical clearance and MHE Referrals: Dali Ely MD [Primary Care Provider] - The documentation as recorded by the Juan byrne Angela accurately reflects the service I personally performed and the decisions made by me, Emiliano Calles MD.
== END 2017-08-01 08:11 ==
LOC: ED 15:15
DX: F10.129 Alcohol abuse with intoxication, unspecified (principal)
CPT/HCPCS: 36415; 80053; 80307; 80320; 80329; 81003; 84443; 85025; 96374; 96375; 99283; G0480; J1200; J1630; J2060; J3411

== ENCOUNTER 2017-12-12 16:10 | Inpatient (IN) | payer OTHER ==
[2017-12-12] MEDS ORDERED: NS 0.9% 1000 ML*IV.FLUID IV ONE (16:31)
[2017-12-12] MEDS ORDERED: LORazepam INJ* 2 MG/ML 1 ML VIAL IV PUSH ONE (16:31)
[2017-12-12] MEDS ORDERED: LORazepam TAB(*) 1 MG PO ONE (16:36)
[2017-12-12 17:21] LABS: ABS Basophils 0 10^3/ul (0-0.2); ABS Eosinophils 0 10^3/ul (0-0.6); ABS Lymphocytes 2.1 10^3/ul (1.0-4.8); ABS Monocytes 0.7 10^3/ul (0-0.8); ABS Nucleated RBC 0 10^3/ul; Eosinophil % 0.1 % (0-6); Hematocrit 49 % (42-52); Hemoglobin 16.9 g/dl (14.0-18.0); Lymphocyte % 21.4 % (25-47); Mean Corpuscular HGB Conc 35 g/dl (31-36); Mean Corpuscular Hemoglobin 29 pg (27-31); Mean Corpuscular Volume 84 fL (80-94); Mean Platelet Volume 7 um3 (7.4-10.4); Nucleated Red Blood Cells % 0; Platelet Count 281 10^3/ul (150-450); Red Blood Count 5.82 10^6/ul (4.0-5.4); Red Cell Distribution Width 13 % (10.5-15); White Blood Count 9.8 10^3/ul (3.5-10.8)
[2017-12-12] MEDS ORDERED: LORazepam INJ* 2 MG/ML 1 ML VIAL ONE (17:34)
[2017-12-12 17:35] LABS: EGFR Non-African American 78.3 (>60)
[2017-12-12] MEDS ORDERED: diPHENhydraMINE IV* 50 MG/ML 1 ml VIAL (BENADRYL) ONE (17:35)
[2017-12-12] MEDS ORDERED: Haloperidol INJ IV/IM* 5 MG/ML AMP ONE (17:35)
[2017-12-12 17:39] LABS: INR 0.94 (0.77-1.02)
[2017-12-12] MEDS ORDERED: Haloperidol INJ IV/IM* 5 MG/ML AMP IM ONE (17:40)
[2017-12-12] MEDS ORDERED: LORazepam INJ* 2 MG/ML 1 ML VIAL IM ONE (17:40)
[2017-12-12] MEDS ORDERED: diPHENhydraMINE IV* 50 MG/ML 1 ml VIAL (BENADRYL) IM ONE (17:41)
[2017-12-12 17:44] LABS: Urine Appearance Clear; Urine Blood 1+ (Negative); Urine Color Straw; Urine Ketones Negative (Negative); Urine Protein Negative (Negative); Urine Specific Gravity 1.002 (1.010-1.030); Urine Urobilinogen Negative (Negative)
[2017-12-13] MEDS ORDERED: Al Hydrox/Mg Hydrox/Simet LIQ* 30 ML UDC PO PRN (06:24)
[2017-12-13] MEDS ORDERED: Acetaminophen TAB* 325 MG PO PRN (06:24)
[2017-12-13] MEDS ORDERED: LORazepam IM 0-6 mg for WAM protocol IM SCH (07:00)
[2017-12-13] MEDS: Naltrexone TAB* 50 MG TAB PO SCH (09:50)
[2017-12-13] MEDS: Folic Acid TAB* 1 MG DAILY PO SCH (09:52)
[2017-12-13] MEDS: Vitamin THERAPEUTIC TAB PO SCH (09:52)
[2017-12-13] MEDS: LORazepam PO 0-6 for WAM protocol PO SCH ×2 (09:52→18:44)
[2017-12-13] MEDS: lamoTRIgine TAB(*) 100 MG PO SCH (21:02)
[2017-12-13] MEDS: Lurasidone(*) 80 MG TAB PO SCH (21:02)
[2017-12-13] MEDS: Mirtazapine TAB* 15 MG PO SCH (21:03)
--- NOTE | 2017-12-13 23:55 | HP ---
HISTORY AND PHYSICAL: DATE OF ADMISSION: 12/13/17 IDENTIFYING DATA: Bigg is a 32-year-old single male who is domiciled employed and he was brought in by emergency services from his apartment and he was admitted on emergency status. CHIEF COMPLAINT: "My neighbor who goes to AA came to my apartment, saw the situation, talked to me and called 911." HISTORY OF PRESENT ILLNESS: Bigg has history of alcohol dependence and diagnosis of bipolar disorder for which he is in treatment at [facility]. He relates that he was doing well psychiatrically and he was sober for about 4 months until last 12/06/17, he said he relapsed on alcohol, had a glass of wine and before he knew it, he had consumed the entire bottle. The next day he drank beer all day and he said he has been drinking every day since. He only went to work at his [employer] job twice in the week and called in sick the rest of the time. Because he had been drinking all day on Friday, he said his neighbor was worried and knocked at his door and he let the neighbor in and the neighbor who had issues with alcohol himself and who has been sober and attending AA, saw the amount of empty containers of alcohol, talked to him for a while and obtained his permission to call emergency services. The patient's notes indicate that the patient was very intoxicated and made suicidal statement during the interaction with the police. The patient denies that was, however, the case, he said that the officer made a statement to the effect that if you continue like this you are going to and he replied something along the line of "so be it." The patient relates that for the past month he has felt somewhat depressed, frustrated with his job which he finds to be boring and he said he was feeling unmotivated and somewhat tired during the day. Since his relapse on alcohol, he said he had slept very little, he had not felt tired and he said he felt very upbeat and was using alcohol to "calm himself down." On review of psychiatric symptoms, he does have a documented diagnosis of bipolar disorder. He describes having had periods of shen with decreased sleep , increased goal directedness, racing thoughts and irrational thinking. He reports that he is mostly depressed and unmotivated. He endorses excessive worrying, irritability, muscle tension. He denies use of tobacco, illicit drugs or misuse of prescription medication. He has an extensive psychiatric history with at least 5 or 6 previous inpatient psychiatric admissions between 2011 and April 2017 when he was last admitted here because of suicidal ideation in the context of relapse on alcohol. He reports having had admission also at [facility] in [facility]. His outpatient care is at [facility] with Dr. Marium Peralta and with community nurse, Fermin Leger. MEDICATIONS: He is prescribed: 1. Latuda 80 mg at bedtime. 2. Remeron 15 mg at bedtime. 3. Lamotrigine 200 mg at bedtime. 4. He received monthly injection of 156 mg of Invega Sustenna. SUICIDE/HOMICIDE HISTORY: The patient reports 1 serious suicide attempt by overdosing on lithium and he needed to be dialyzed afterwards. He denies any history of self-injury or violence. TRAUMA/ABUSE HISTORY: Denies. FAMILY HISTORY: He denies any family history of psychiatric illnesses or completed suicide. SOCIAL HISTORY: He was born and raised in [place], [place], the younger of 2 children from parents who are still alive. His father is still a practising doctor and his mother is a homemaker. The patient has an older sister who is an independent adult. He identified as being heterosexual. He has dated, but has never been in any long-term relationship. 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 He is very dissatisfied with his job that he finds boring and he has contemplated changing jobs. REVIEW OF MEDICAL SYMPTOMS: He denies any active medical problems, any history of head trauma with loss of consciousness, seizures or surgeries. He is followed by Dr. Dali Ely in this community. PHYSICAL EXAMINATION GENERAL: He is a moderately obese 32-year-old white male who does not appear to be in any acute physical distress. He is alert and oriented x3. ADMISSION VITAL SIGNS: Blood pressure 149/89, pulse is 126, respirations are 16 , temperature 97.2. HEENT: Head atraumatic, normocephalic, symmetrical. Eyes: PERRLA. Tympanic membrane intact. Sclerae anicteric. Conjunctivae clear. NECK: Trachea midline. Freely mobile. No cervical lymphadenopathy, no nuchal rigidity. LUNGS: Clear to auscultation bilaterally. HEART: Regular rate and rhythm, S1, S2. No murmur, gallops or rubs. BREASTS: No mass or discharge. ABDOMEN: Obese but nontender. Normal bowel sounds in all 4 quadrants. EXTREMITIES: No pain, no limitation in range of movement. Pulses are equal and adequate in all 4 extremities. NEUROLOGIC: Cranial nerves II through XII intact, cerebellar function intact. Muscle strength grade 5/5 in all 4 extremities. SKIN: Texture and turgor and pigmentation now within normal limits. GENITALIA: Exam not performed. RECTAL: Exam not performed. STRUCTURAL EXAM: The patient examined in both supine and upright positions. No gross AP or lateral asymmetry. Gait and movement are within normal limits. LABORATORY DATA ON ADMISSION: His CBC shows RBC of 5.82, MPV of 7, and lymph percentage of 21.4. Complete metabolic panel shows chloride of 96, anion gap of 14, BUN/creatinine ratio of 6.5. Nonfasting glucose of 116. Lactic acid of 3. Urinalysis within normal limits. Urine toxicology screen shows blood alcohol level of 342. The patient relates that he started drinking alcohol in his late teen years, it became an issue in his late 20s. He describes himself as more of like a binge drinker. He denies legal or medical consequences. He had 1 inpatient stay in 2013 at the [facility] for 4 months, longest period of sobriety has been about 4 months. He denies any history of withdrawal seizures or DTs. He denies the use of tobacco, marijuana, any other illicit drugs or misuse of prescription medication. MENTAL STATUS EXAMINATION: Finds a heavyset 32-year-old white male with balding hair pattern who looks his stated age. He is casually dressed and well- groomed. He makes poor eye contact. He presents as rather guarded and superficially cooperative. He exhibits some degree of psychomotor retardation. His affect is sad. Mood is depressed and anxious. Thoughts are linear and goal directed. No evidence of formal thought disorder. No overt delusions. He denies auditory or visual hallucination. The patient endorses occasional passive wish, but denies active suicidal ideation and he contracts for safety. His insight and judgement are fair, impulse control is good in this setting. He is alert and oriented to time, place, and person. Attention, memory and concentration are all fair. Fund of knowledge is adequate. SUMMARY: A 32-year-old male with history of 1 previous suicidal attempt and previous psychiatric hospitalization, 1 inpatient stay for alcohol and drug rehabilitation treatment, previous diagnosis of bipolar disorder and severe alcohol use disorder, current treatment at [facility] , who was brought in by ambulance from home and was admitted in the context of relapsing on alcohol and making suicidal statement to police respondents. Medical history is remarkable for obesity. He denies any family history of psychiatric illnesses or completed suicide. He describes stressors of dissatisfaction with his job, impact of substance use and feeling socially isolated. DIAGNOSTIC IMPRESSION: Alcohol use disorder, chronic and severe with induced mood symptoms and withdrawal. Bipolar disorder by history. TREATMENT PLAN: Admit to mental health unit, 15-minute checks, full code status. Legal status is emergency. Initiate comprehensive milieu and group psychotherapeutic support. The patient will be placed on a WAM protocol to prevent alcohol withdrawal. Discharge planning will involve coordination of his aftercare with [facility]. [id number]/CPS #: [id number] ESTHELA
[2017-12-14] MEDS: LORazepam PO 0-6 for WAM protocol PO SCH ×2 (05:20→12:55)
[2017-12-14] MEDS: Vitamin THERAPEUTIC TAB PO SCH (12:05)
[2017-12-14] MEDS: Naltrexone TAB* 50 MG TAB PO SCH (12:05)
[2017-12-14] MEDS: Folic Acid TAB* 1 MG DAILY PO SCH (12:05)
[2017-12-14] MEDS: Thiamine TAB* 100 MG TAB DAILY (@ T+1) PO SCH (12:06)
--- NOTE | 2017-12-14 12:39 | ED ---
Aaron Dukes Julia, scribed for Ceasar Esquivel MD on 12/12/17 at 1658 . Substance Abuse/Use - HPI Summary HPI Summary: This patient is a 32 year old M brought in by Taj DEXTER to [facility] for alcohol intoxication. Patient reports drinking beer and vodka but doesnt remember when or how much. He states he has been drinking for 5-6 days with no recent attempts at sobriety. Patient denies SI, chest pain SOB, or pain in general. He states his neighbor called an ambulance because he was too drunk. EMS states pt was found with 17 24oz beer cans and a half drank bottle of vodka. Pt was tearful when found by EMS. - History Of Current Complaint Chief Complaint: EDSubstanceAbuse Stated Complaint: ETOH/MHE Hx Obtained From: Patient, EMS Onset/Duration of Drug/ETOH Abuse: Days Overdose Characteristics: Oral Timing Of Abuse: Daily Character: Depressed - Allergies/Home Medications Allergies/Adverse Reactions: Allergies Allergy/AdvReac Type Severity Reaction Status Date / Time No Known Allergies Allergy Verified 12/12/17 16:30 PMH/Surg Hx/FS Hx/Imm Hx Endocrine/Hematology History: Denies: Hx Anticoagulant Therapy, Hx Diabetes, Hx Thyroid Disease Cardiovascular History: Denies: Hx Hypertension, Hx Pacemaker/ICD Respiratory History: Denies: Hx Asthma, Hx Chronic Obstructive Pulmonary Disease (COPD) History: Reports: Hx Acute Renal Failure Denies: Hx Renal Disease Sensory History: Denies: Hx Contacts or Glasses, Hx Hearing Aid Opthamlomology History: Denies: Hx Contacts or Glasses Neurological History: Denies: Hx Dementia, Hx Seizures Psychiatric History: Reports: Hx Anxiety, Hx Depression, Hx Inpatient Treatment , Hx Community Mental Health Tx, Hx Bipolar Disorder - Type 1, Hx Suicide Attempt, Hx of Violent Episodes Against Others - PT denies hx of violence against others, Hx Substance Abuse Denies: Hx Attention Deficit Hyperactivity Disorder, Hx Eating Disorder, Hx Panic Disorder, Hx Post Traumatic Stress Disorder, Hx Schizophrenia, Other Psychiatric Issues/Disorders - Immunization History Date of Tetanus Vaccine: UTD Date of Influenza Vaccine: UTD Infectious Disease History: No Infectious Disease History: Denies: Hx Clostridium Difficile, Hx Hepatitis, Hx Human Immunodeficiency Virus (HIV), Hx Shingles, Hx Tuberculosis, Traveled Outside the [place] in Last 30 Days - Family History Known Family History: Positive: Other - alcoholism - Social History Alcohol Use: Daily Alcohol Amount: 18-20 beers per day Hx Substance Use: No Substance Use Type: Reports: None Hx Tobacco Use: No Smoking Status (MU): Never Smoked Tobacco Amount Used/How Often: Pt has not used any tobacco products in the last 30 days Have You Smoked in the Last Year: No Review of Systems Constitutional: Other - drunk Negative: Fever, Chills Negative: Erythema Negative: Sore Throat Negative: Chest Pain Negative: Shortness Of Breath, Cough Negative: Abdominal Pain, Vomiting, Nausea Negative: dysuria, hematuria Negative: Myalgia, Edema Negative: Rash Neurological: Negative - dizziness All Other Systems Reviewed And Are Negative: Yes Physical Exam - Summary Physical Exam Summary: General: Well appearing, no distress, Cardiovascular: Skin is well perfused, Pt is tachycardic Pulmonary: No respiratory distress, no tachypnea Abdomen: Non-distended Skin: Warm, pink, dry Psych: Pt is tearful Neuro: A&Ox3 Triage Information Reviewed: Yes Vital Signs On Initial Exam: Initial Vitals Temp Pulse Resp BP Pulse Ox 98.4 F 126 27 177/133 91 12/12/17 16:18 12/12/17 16:18 12/12/17 16:18 12/12/17 16:18 12/12/17 16:18 Vital Signs Reviewed: Yes Diagnostics - Vital Signs Vital Signs Temp Pulse Resp BP Pulse Ox 12/12/17 16:27 129 14 129/85 93 12/12/17 16:26 130 22 92 12/12/17 16:18 98.4 F 126 27 177/133 91 - Laboratory Lab Results: Lab Results 12/12/17 12/12/17 12/12/17 Range/Units 17:06 17:06 17:06 WBC 9.8 (3.5-10.8) 10^3/ul RBC 5.82 H (4.0-5.4) 10^6/ul Hgb 16.9 (14.0-18.0) g/dl Hct 49 (42-52) % MCV 84 (80-94) fL MCH 29 (27-31) pg MCHC 35 (31-36) g/dl RDW 13 (10.5-15) % Plt Count 281 (150-450) 10^3/ul MPV 7 L (7.4-10.4) um3 Neut % (Auto) 71.4 (38-83) % Lymph % (Auto) 21.4 L (25-47) % Laurens % (Auto) 6.8 (1-9) % Eos % (Auto) 0.1 (0-6) % Baso % (Auto) 0.3 (0-2) % Absolute Neuts (auto) 7.0 (1.5-7.7) 10^3/ul Absolute Lymphs (auto) 2.1 (1.0-4.8) 10^3/ul Absolute Monos (auto) 0.7 (0-0.8) 10^3/ul Absolute Eos (auto) 0 (0-0.6) 10^3/ul Absolute Basos (auto) 0 (0-0.2) 10^3/ul Absolute Nucleated RBC 0 10^3/ul Nucleated RBC % 0 INR (Anticoag Therapy) 0.94 (0.77-1.02) APTT 29.1 (26.0-36.3) seconds Sodium 134 (133-145) mmol/L Potassium 4.0 (3.5-5.0) mmol/L Chloride 96 L (101-111) mmol/L Carbon Dioxide 24 (22-32) mmol/L Anion Gap 14 H (2-11) mmol/L BUN 7 (6-24) mg/dL Creatinine 1.08 (0.67-1.17) mg/dL Est GFR ( Amer) 100.7 (>60) Est GFR (Non-Af Amer) 78.3 (>60) BUN/Creatinine Ratio 6.5 L (8-20) Glucose 116 H (70-100) mg/dL Lactic Acid (0.5-2.0) mmol/L Calcium 9.0 (8.6-10.3) mg/dL Total Bilirubin 0.50 (0.2-1.0) mg/dL AST 31 (13-39) U/L ALT 24 (7-52) U/L Alkaline Phosphatase 111 H (34-104) U/L Total Protein 7.9 (6.4-8.9) g/dL Albumin 4.4 (3.2-5.2) g/dL Globulin 3.5 (2-4) g/dL Albumin/Globulin Ratio 1.3 (1-3) Urine Color Urine Appearance Urine pH (5-9) Ur Specific Thompson (1.010-1.030) Urine Protein (Negative) Urine Ketones (Negative) Urine Blood (Negative) Urine Nitrate (Negative) Urine Bilirubin (Negative) Urine Urobilinogen (Negative) Ur Leukocyte Esterase (Negative) Urine WBC (Auto) (Absent) Urine RBC (Auto) (Absent) Urine Bacteria (Absent) Urine Glucose (Negative) Urine Opiates Screen (None Detect) Ur Barbiturates Screen (None Detect) Ur Phencyclidine Scrn (None Detect) Ur Amphetamines Screen (None Detect) U Benzodiazepines Scrn (None Detect) Urine Cocaine Screen (None Detect) U Cannabinoids Screen (None Detect) Serum Alcohol 342 H (<10) mg/dL 12/12/17 12/12/17 12/12/17 Range/Units 17:25 17:25 20:27 WBC (3.5-10.8) 10^3/ul RBC (4.0-5.4) 10^6/ul Hgb (14.0-18.0) g/dl Hct (42-52) % MCV (80-94) fL MCH (27-31) pg MCHC (31-36) g/dl RDW (10.5-15) % Plt Count (150-450) 10^3/ul MPV (7.4-10.4) um3 Neut % (Auto) (38-83) % Lymph % (Auto) (25-47) % Laurens % (Auto) (1-9) % Eos % (Auto) (0-6) % Baso % (Auto) (0-2) % Absolute Neuts (auto) (1.5-7.7) 10^3/ul Absolute Lymphs (auto) (1.0-4.8) 10^3/ul Absolute Monos (auto) (0-0.8) 10^3/ul Absolute Eos (auto) (0-0.6) 10^3/ul Absolute Basos (auto) (0-0.2) 10^3/ul Absolute Nucleated RBC 10^3/ul Nucleated RBC % INR (Anticoag Therapy) (0.77-1.02) APTT (26.0-36.3) seconds Sodium (133-145) mmol/L Potassium (3.5-5.0) mmol/L Chloride (101-111) mmol/L Carbon Dioxide (22-32) mmol/L Anion Gap (2-11) mmol/L BUN (6-24) mg/dL Creatinine (0.67-1.17) mg/dL Est GFR ( Amer) (>60) Est GFR (Non-Af Amer) (>60) BUN/Creatinine Ratio (8-20) Glucose (70-100) mg/dL Lactic Acid 3.0 H* (0.5-2.0) mmol/L Calcium (8.6-10.3) mg/dL Total Bilirubin (0.2-1.0) mg/dL AST (13-39) U/L ALT (7-52) U/L Alkaline Phosphatase (34-104) U/L Total Protein (6.4-8.9) g/dL Albumin (3.2-5.2) g/dL Globulin (2-4) g/dL Albumin/Globulin Ratio (1-3) Urine Color Straw Urine Appearance Clear Urine pH 6.0 (5-9) Ur Specific Thompson 1.002 L (1.010-1.030) Urine Protein Negative (Negative) Urine Ketones Negative (Negative) Urine Blood 1+ H (Negative) Urine Nitrate Negative (Negative) Urine Bilirubin Negative (Negative) Urine Urobilinogen Negative (Negative) Ur Leukocyte Esterase Negative (Negative) Urine WBC (Auto) Trace(0-5/hpf) (Absent) Urine RBC (Auto) Trace(0-2/hpf) (Absent) Urine Bacteria Absent (Absent) Urine Glucose Negative (Negative) Urine Opiates Screen None detected (None Detect) Ur Barbiturates Screen None detected (None Detect) Ur Phencyclidine Scrn None detected (None Detect) Ur Amphetamines Screen None detected (None Detect) U Benzodiazepines Scrn None detected (None Detect) Urine Cocaine Screen None detected (None Detect) U Cannabinoids Screen None detected (None Detect) Serum Alcohol (<10) mg/dL Result Diagrams: 12/12/17 17:06 12/12/17 17:06 Lab Statement: Any lab studies that have been ordered have been reviewed, and results considered in the medical decision making process. Course/Dx - Course Course Of Treatment: Pt is BIBA due to intoxication. Pt is tearful and has a hx of depression and SI. Pt is awaiting mental health evaluation. - Diagnoses Provider Diagnoses: Suicidal ideation, Alcohol intoxication, Alcohol consumption binge drinking Discharge - Discharge Plan Condition: Fair Disposition: OTHER Discharge Disposition Comment: Pt is signed out to Dr. Lynn at shift change awaiting mental health eval The documentation as recorded by the Aaron byrne Julia accurately reflects the service I personally performed and the decisions made by me, Ceasar Esquivel MD.
[2017-12-14] MEDS: Lurasidone(*) 80 MG TAB PO SCH (20:39)
[2017-12-14] MEDS: Mirtazapine TAB* 15 MG PO SCH (20:39)
[2017-12-14] MEDS: lamoTRIgine TAB(*) 100 MG PO SCH (20:39)
[2017-12-15] MEDS: Folic Acid TAB* 1 MG DAILY PO SCH (08:48)
[2017-12-15] MEDS: Thiamine TAB* 100 MG TAB DAILY (@ T+1) PO SCH (08:48)
[2017-12-15] MEDS: Vitamin THERAPEUTIC TAB PO SCH (08:48)
[2017-12-15] MEDS: Naltrexone TAB* 50 MG TAB PO SCH (08:48)
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
[2017-12-15] MEDS ORDERED: Lurasidone(*) 120 MG TAB PO SCH (21:00)
[2017-12-15] MEDS ORDERED: lamoTRIgine TAB(*) 100 MG PO SCH (21:00)
[2017-12-15] MEDS: Mirtazapine TAB* 15 MG PO SCH (21:26)
[2017-12-16 08:04] VITALS: BP 127/81
[2017-12-16] MEDS: Thiamine TAB* 100 MG TAB DAILY (@ T+1) PO SCH (08:22)
[2017-12-16] MEDS: Vitamin THERAPEUTIC TAB PO SCH (08:22)
[2017-12-16] MEDS: Folic Acid TAB* 1 MG DAILY PO SCH (08:22)
[2017-12-16] MEDS ORDERED: Naltrexone TAB* 50 MG TAB PO SCH (09:00)
--- NOTE | 2017-12-16 13:12 | PN ---
MHU: Group Therapy Note - Service Type Service Type: [id number] Group Psychotherapy - Cognitive Behavioral Group Therapy ( CBT):Patient was attentive and participatory in CBT programming this morning, and remained in good behavioral control. Patient expressed positive insights regarding relevant treatment interventions and goals.
--- NOTE | 2017-12-16 13:44 | DCNOTE ---
Discharge Planning - Discharge Planning Medications: Current Medications Acetaminophen (Tylenol Tab*) 650 mg PO Q4H PRN PRN Reason: PAIN or TEMP > 101 F Al Hydrox/Mg Hydrox/Simethicone (Maalox Plus*) 30 ml PO Q4H PRN PRN Reason: INDIGESTION Folic Acid (Folvite Tab*) 1 mg PO DAILY [facility] Last Admin: 12/16/17 08:22 Dose: 1 mg Lamotrigine (Lamictal Tab(*)) 250 mg PO BEDTIME [facility] Last Admin: 12/15/17 21:27 Dose: 250 mg Lorazepam (Ativan Tab(*)) 0 - 6 mg PO .PER [facility] PARAMETERS MASHA PRN Reason: Protocol Last Admin: 12/14/17 12:55 Dose: 2 mg Lorazepam (Ativan Inj*) 0 - 6 mg IM .PER [facility] PROTOCOL MASHA PRN Reason: Protocol Lurasidone HCl (Latuda) 120 mg PO BEDTIME [facility] Last Admin: 12/15/17 21:27 Dose: 120 mg Mirtazapine (Remeron Tab*) 15 mg PO BEDTIME [facility] Last Admin: 12/15/17 21:26 Dose: 15 mg Multivitamins (Theragran Tab*) 1 tab PO DAILY [facility] Last Admin: 12/16/17 08:22 Dose: 1 tab Naltrexone HCl (Naltrexone Tab*) 100 mg PO DAILY [facility] Last Admin: 12/16/17 08:22 Dose: 100 mg Paliperidone Palmitate (Invega Sustenna*) 156 mg IM Q28D [facility] Thiamine HCl (Vitamin B-1 Tab*) 100 mg PO DAILY [facility] Last Admin: 12/16/17 08:22 Dose: 100 mg Discharge Planning: Prescriptions provided for discharge [] Yes [] No Follow up care details as per social work arrangements. Patient response to discharge plan: [] eager for discharge [] agreeable with discharge plan [] ambivalent about discharge [] disagrees with discharge today
[2018-01-07] MEDS ORDERED: Paliperidone SUSTENNA* 156 MG/1 ML IM SCH (09:00)
== END 2017-12-16 19:50 | disposition home or self-care (01) | DRG 897 ==
LOC: ED 16:10 → BSU 12-13 09:09
PROVIDERS: ADMIT Psychiatry & Neurology Psychiatry; ATTEND Psychiatry & Neurology Psychiatry
PROC: GZHZZZZ Group Psychotherapy (ICD-10-PCS; principal; 2017-12-16)
DX: F10.24 Alcohol dependence with alcohol-induced mood disorder (principal); F10.229 Alcohol dependence with intoxication, unspecified; R45.851 Suicidal ideations; F31.4 Bipolar disorder, current episode depressed, severe, without psychotic features; F10.239 Alcohol dependence with withdrawal, unspecified; F41.9 Anxiety disorder, unspecified; E66.9 Obesity, unspecified; R45.84 Anhedonia; Y90.8 Blood alcohol level of 240 mg/100 ml or more; Z91.5 Personal history of self-harm; Z81.1 Family history of alcohol abuse and dependence; Z68.36 Body mass index [BMI] 36.0-36.9, adult
CPT/HCPCS: 36415; 80053; 80307; 80320; 81003; 81015; 83605; 85025; 85610; 85730; 90853; 96374; 96375; 99222; 99231; 99238; 99285; A9270-GY; G0480; J1200; J1630; J2060

== ENCOUNTER 2018-01-28 09:42 | Emergency (ER) | payer OTHER ==
[2018-01-28 10:31] LABS: Hematocrit 50 % (42-52); Hemoglobin 17.3 g/dl (14.0-18.0); Mean Corpuscular HGB Conc 35 g/dl (31-36); Mean Corpuscular Hemoglobin 29 pg (27-31); Mean Corpuscular Volume 84 fL (80-94); Mean Platelet Volume 7 um3 (7.4-10.4); Platelet Count 301 10^3/ul (150-450); Red Blood Count 5.94 10^6/ul (4.0-5.4); Red Cell Distribution Width 14 % (10.5-15); White Blood Count 8.4 10^3/ul (3.5-10.8)
[2018-01-28 10:46] LABS: Urine Appearance Clear; Urine Blood 1+ (Negative); Urine Color Yellow; Urine Ketones Negative (Negative); Urine Protein 2+(100 mg/dL) (Negative); Urine Specific Gravity 1.009 (1.010-1.030); Urine Urobilinogen Negative (Negative)
[2018-01-28 11:06] LABS: ABS Basophils 0.1 10^3/ul (0-0.2); ABS Eosinophils 0 10^3/ul (0-0.6); ABS Lymphocytes 2.3 10^3/ul (1.0-4.8); ABS Monocytes 0.7 10^3/ul (0-0.8); ABS Neutrophils 5.2 10^3/ul (1.5-7.7); ABS Nucleated RBC 0 10^3/ul; Eosinophil % 0.1 % (0-6); Lymphocyte % 27.5 % (25-47); Nucleated Red Blood Cells % 0
[2018-01-28] MEDS ORDERED: LORazepam TAB(*) 1 MG PO ONE ×2 (13:15→15:03)
--- NOTE | 2018-01-28 19:05 | ED ---
Aaron Dukes Julia, scribed for Colt Aviles MD on 01/28/18 at 0957 . Substance Abuse/Use - HPI Summary HPI Summary: This patient is a 32 year old [facility] due to alcohol intoxication. He states that he does not know why he is here but he believes his parents called for him to come to the hospital. He states he was drinking vodka this morning. He denies other substance use. Patient has been seen in the ED previously for similar issues. Patient has a history of bipolar disorder and has not been taking his medication. - History Of Current Complaint Stated Complaint: 941 Hx Obtained From: Patient, EMS Onset/Duration of Drug/ETOH Abuse: Years Overdose Characteristics: Oral Timing Of Abuse: Daily Character: Depressed Aggravating Factor(s): Medication Non-compliance Associated Signs And Symptoms: Negative Related Hx: Prior Psych Admission - Allergies/Home Medications Allergies/Adverse Reactions: Allergies Allergy/AdvReac Type Severity Reaction Status Date / Time No Known Allergies Allergy Verified 12/12/17 16:30 Home Medications: Home Medications Naltrexone TAB* 50 mg PO DAILY 01/28/18 [History Confirmed 01/28/18] Paliperidone SUSTENNA* [Invega Sustenna*] 117 mg IM .Q28D 01/28/18 [History Confirmed 01/28/18] PMH/Surg Hx/FS Hx/Imm Hx Endocrine/Hematology History: Denies: Hx Anticoagulant Therapy, Hx Diabetes, Hx Thyroid Disease Cardiovascular History: Denies: Hx Hypertension, Hx Pacemaker/ICD Respiratory History: Denies: Hx Asthma, Hx Chronic Obstructive Pulmonary Disease (COPD) History: Reports: Hx Acute Renal Failure Denies: Hx Renal Disease Sensory History: Denies: Hx Contacts or Glasses, Hx Hearing Aid Opthamlomology History: Denies: Hx Contacts or Glasses Neurological History: Denies: Hx Dementia, Hx Seizures Psychiatric History: Reports: Hx Anxiety, Hx Depression, Hx Inpatient Treatment , Hx Community Mental Health Tx, Hx Bipolar Disorder - Type 1, Hx Suicide Attempt, Hx of Violent Episodes Against Others - PT denies hx of violence against others, Hx Substance Abuse Denies: Hx Attention Deficit Hyperactivity Disorder, Hx Eating Disorder, Hx Panic Disorder, Hx Post Traumatic Stress Disorder, Hx Schizophrenia, Other Psychiatric Issues/Disorders - Immunization History Date of Tetanus Vaccine: UTD Date of Influenza Vaccine: UTD Infectious Disease History: Denies: Hx Clostridium Difficile, Hx Hepatitis, Hx Human Immunodeficiency Virus (HIV), Hx Shingles, Hx Tuberculosis - Family History Family History: Patient denies relevant family medical history. - Social History Alcohol Use: Daily Alcohol Amount: 18-20 beers per day Hx Substance Use: No Substance Use Type: Reports: None Hx Tobacco Use: No Smoking Status (MU): Never Smoked Tobacco Amount Used/How Often: Pt has not used any tobacco products in the last 30 days Have You Smoked in the Last Year: No Review of Systems Negative: Fever Positive: Other - etoh abuse All Other Systems Reviewed And Are Negative: Yes Physical Exam - Summary Physical Exam Summary: Appearance: The patient is well-nourished in no acute distress and in no acute pain. Skin: The skin is warm and dry and skin color reflects adequate perfusion. HEENT: The head is normocephalic and atraumatic. The pupils are equal and reactive. The conjunctivae are clear and without drainage. Nares are patent and without drainage. Mouth reveals moist mucous membranes and the throat is without erythema and exudate. The external ears are intact. The ear canals are patent and without drainage. The tympanic membranes are intact. Neck: the neck is supple with full range of motion and non-tender. There are no carotid bruits. There is no neck vein distension. Respiratory: Chest is non-tender. Lungs are clear to auscultation and breath sounds are symmetrical and equal. Cardiovascular: Heart is regular rate and rhythm. There is no murmur or rub auscultated. There is no peripheral edema and pulses are symmetrical and equal. Abdomen: The abdomen is soft and non-tender. There are normal bowel sounds heard in all four quadrants and there is no organomegaly palpated. Musculoskeletal: There is no back tenderness noted. Extremities are non-tender with full range of motion. There is good capillary refill. There is no peripheral edema or calf tenderness elicited. Neurological: Patient is alert and oriented to person, place and time. The patient has symmetrical motor strength in all four extremities. Cranial nerves are grossly intact. Deep tendon reflexes are symmetrical and equal in all four extremities. Patients speech is slurred. No focal neurological findings. Psychiatric: The patient has an appropriate affect and does not exhibit any anxiety or depression. Triage Information Reviewed: Yes Vital Signs On Initial Exam: Initial Vitals Temp Pulse Resp BP Pulse Ox 97.5 F 126 16 119/97 93 01/28/18 10:17 01/28/18 10:17 01/28/18 10:17 01/28/18 10:17 01/28/18 10:17 Vital Signs Reviewed: Yes Diagnostics - Vital Signs Vital Signs Temp Pulse Resp BP Pulse Ox 01/28/18 15:13 18 01/28/18 13:20 18 01/28/18 10:17 97.5 F 126 16 119/97 93 - Laboratory Lab Results: Lab Results 01/28/18 01/28/18 01/28/18 Range/Units 10:22 10:22 10:26 WBC 8.4 (3.5-10.8) 10^3/ul RBC 5.94 H (4.0-5.4) 10^6/ul Hgb 17.3 (14.0-18.0) g/dl Hct 50 (42-52) % MCV 84 (80-94) fL MCH 29 (27-31) pg MCHC 35 (31-36) g/dl RDW 14 (10.5-15) % Plt Count 301 (150-450) 10^3/ul MPV 7 L (7.4-10.4) um3 Neut % (Auto) 63.1 (38-83) % Lymph % (Auto) 27.5 (25-47) % Norton % (Auto) 8.1 H (0-7) % Eos % (Auto) 0.1 (0-6) % Baso % (Auto) 1.2 (0-2) % Absolute Neuts (auto) 5.2 (1.5-7.7) 10^3/ul Absolute Lymphs (auto) 2.3 (1.0-4.8) 10^3/ul Absolute Monos (auto) 0.7 (0-0.8) 10^3/ul Absolute Eos (auto) 0 (0-0.6) 10^3/ul Absolute Basos (auto) 0.1 (0-0.2) 10^3/ul Absolute Nucleated RBC 0 10^3/ul Nucleated RBC % 0 Sodium 135 (133-145) mmol/L Potassium 3.9 (3.5-5.0) mmol/L Chloride 100 L (101-111) mmol/L Carbon Dioxide 21 L (22-32) mmol/L Anion Gap 14 H (2-11) mmol/L BUN 12 (6-24) mg/dL Creatinine 1.06 (0.67-1.17) mg/dL Est GFR ( Amer) 102.9 (>60) Est GFR (Non-Af Amer) 80.0 (>60) BUN/Creatinine Ratio 11.3 (8-20) Glucose 128 H (70-100) mg/dL Calcium 9.5 (8.6-10.3) mg/dL Total Bilirubin 0.50 (0.2-1.0) mg/dL AST 31 (13-39) U/L ALT 28 (7-52) U/L Alkaline Phosphatase 121 H (34-104) U/L Total Protein 8.3 (6.4-8.9) g/dL Albumin 4.8 (3.2-5.2) g/dL Globulin 3.5 (2-4) g/dL Albumin/Globulin Ratio 1.4 (1-3) TSH 2.58 (0.34-5.60) mcIU/mL Urine Color Urine Appearance Urine pH (5-9) Ur Specific Putney (1.010-1.030) Urine Protein (Negative) Urine Ketones (Negative) Urine Blood (Negative) Urine Nitrate (Negative) Urine Bilirubin (Negative) Urine Urobilinogen (Negative) Ur Leukocyte Esterase (Negative) Urine WBC (Auto) (Absent) Urine RBC (Auto) (Absent) Ur Squamous Epith Cells (Absent) Urine Bacteria (Absent) Urine Glucose (Negative) Salicylates < 2.50 (<30) mg/dL Urine Opiates Screen None detected (None Detect) Acetaminophen < 15 mcg/mL Ur Barbiturates Screen None detected (None Detect) Ur Phencyclidine Scrn None detected (None Detect) Ur Amphetamines Screen None detected (None Detect) U Benzodiazepines Scrn None detected (None Detect) Urine Cocaine Screen None detected (None Detect) U Cannabinoids Screen None detected (None Detect) Serum Alcohol 290 H (<10) mg/dL 01/28/18 Range/Units 10:26 WBC (3.5-10.8) 10^3/ul RBC (4.0-5.4) 10^6/ul Hgb (14.0-18.0) g/dl Hct (42-52) % MCV (80-94) fL MCH (27-31) pg MCHC (31-36) g/dl RDW (10.5-15) % Plt Count (150-450) 10^3/ul MPV (7.4-10.4) um3 Neut % (Auto) (38-83) % Lymph % (Auto) (25-47) % Norton % (Auto) (0-7) % Eos % (Auto) (0-6) % Baso % (Auto) (0-2) % Absolute Neuts (auto) (1.5-7.7) 10^3/ul Absolute Lymphs (auto) (1.0-4.8) 10^3/ul Absolute Monos (auto) (0-0.8) 10^3/ul Absolute Eos (auto) (0-0.6) 10^3/ul Absolute Basos (auto) (0-0.2) 10^3/ul Absolute Nucleated RBC 10^3/ul Nucleated RBC % Sodium (133-145) mmol/L Potassium (3.5-5.0) mmol/L Chloride (101-111) mmol/L Carbon Dioxide (22-32) mmol/L Anion Gap (2-11) mmol/L BUN (6-24) mg/dL Creatinine (0.67-1.17) mg/dL Est GFR ( Amer) (>60) Est GFR (Non-Af Amer) (>60) BUN/Creatinine Ratio (8-20) Glucose (70-100) mg/dL Calcium (8.6-10.3) mg/dL Total Bilirubin (0.2-1.0) mg/dL AST (13-39) U/L ALT (7-52) U/L Alkaline Phosphatase (34-104) U/L Total Protein (6.4-8.9) g/dL Albumin (3.2-5.2) g/dL Globulin (2-4) g/dL Albumin/Globulin Ratio (1-3) TSH (0.34-5.60) mcIU/mL Urine Color Yellow Urine Appearance Clear Urine pH 6.0 (5-9) Ur Specific Putney 1.009 L (1.010-1.030) Urine Protein 2+(100 mg/dl) A (Negative) Urine Ketones Negative (Negative) Urine Blood 1+ A (Negative) Urine Nitrate Negative (Negative) Urine Bilirubin Negative (Negative) Urine Urobilinogen Negative (Negative) Ur Leukocyte Esterase Negative (Negative) Urine WBC (Auto) Trace(0-5/hpf) (Absent) Urine RBC (Auto) Trace(0-2/hpf) (Absent) Ur Squamous Epith Cells Present A (Absent) Urine Bacteria Absent (Absent) Urine Glucose Negative (Negative) Salicylates (<30) mg/dL Urine Opiates Screen (None Detect) Acetaminophen mcg/mL Ur Barbiturates Screen (None Detect) Ur Phencyclidine Scrn (None Detect) Ur Amphetamines Screen (None Detect) U Benzodiazepines Scrn (None Detect) Urine Cocaine Screen (None Detect) U Cannabinoids Screen (None Detect) Serum Alcohol (<10) mg/dL Result Diagrams: 01/28/18 10:22 01/28/18 10:22 Lab Statement: Any lab studies that have been ordered have been reviewed, and results considered in the medical decision making process. Course/Dx - Course Course Of Treatment: Mr. Anthony presented under a 941 intoxicated. He is medically clear at this point and awaiting a MHE. He has remained reasonably cooperative. - Diagnoses Provider Diagnoses: Alcohol intoxication Discharge - Sign-Out/Discharge Documenting (check all that apply): Sign-Out Patient Signing out patient TO: Wili Quevedo - Discharge Plan Discharge Disposition Comment: Signed out at change of shift to Dr. Quevedo Prescriptions: LORazepam TAB(*) [Ativan TAB(*)] 1 mg PO Q6H PRN #20 tab MDD 4 PRN Reason: Pain Referrals: Dali Ely MD [Primary Care Provider] - The documentation as recorded by the Aaron byrne Julia accurately reflects the service I personally performed and the decisions made by me, Colt Aviles MD.
[2018-01-29 02:25] VITALS: BP 129/80
== END 2018-01-29 02:24 | disposition home or self-care (01) ==
LOC: ED 09:42
DX: F10.129 Alcohol abuse with intoxication, unspecified (principal); Y90.8 Blood alcohol level of 240 mg/100 ml or more
CPT/HCPCS: 36415; 80053; 80307; 80320; 80329; 81003; 81015; 84443; 85025; 87086; 99284; A9270-GY; G0480

== ENCOUNTER 2018-04-18 16:14 | Emergency (ER) | payer OTHER ==
[2018-04-18] MEDS ORDERED: LORazepam TAB(*) 1 MG PO ONE (16:38)
[2018-04-18] MEDS ORDERED: LORazepam TAB(*) 1 MG ONE (16:40)
[2018-04-18 16:56] LABS: Hematocrit 46 % (42-52); Mean Corpuscular HGB Conc 35 g/dl (31-36); Mean Corpuscular Hemoglobin 30 pg (27-31); Mean Corpuscular Volume 85 fL (80-94); Mean Platelet Volume 7.1 um3 (7.4-10.4); Platelet Count 311 10^3/ul (150-450); Red Blood Count 5.39 10^6/ul (4.0-5.4); Red Cell Distribution Width 13 % (10.5-15); White Blood Count 10.5 10^3/ul (3.5-10.8)
[2018-04-18 17:12] LABS: EGFR Non-African American 66.3 (>60)
[2018-04-18 17:22] LABS: ABS Basophils 0.1 10^3/ul (0-0.2); ABS Eosinophils 0.1 10^3/ul (0-0.6); ABS Lymphocytes 2.6 10^3/ul (1.0-4.8); ABS Monocytes 0.6 10^3/ul (0-0.8); ABS Neutrophils 7.1 10^3/ul (1.5-7.7); ABS Nucleated RBC 0.1 10^3/ul; Eosinophil % 0.7 % (0-6); Lymphocyte % 24.4 % (25-47); Nucleated Red Blood Cells % 0.6
--- NOTE | 2018-04-18 21:59 | ED ---
Aaron Dukes Julia, scribed for Emiliano Calles MD on 04/18/18 at 1646 . Psychiatric Complaint - HPI Summary HPI Summary: This patient is a 33 year old M BIBA to [facility] because he has not been taking his medications for an unknown period of time. Family members noticed he has not been sleeping for the past couple of days. EMS reports finding an empty 192 proof bottle of rum at the scene. - History Of Current Complaint Hx Obtained From: EMS Onset/Duration: Still Present Timing: Constant Character: Depressed Aggravating Factor(s): Medication Non-compliance Associated Signs And Symptoms: Positive: Sleep Disturbance Related History: Positive For: Prior Psychiatric Issues - Allergies/Home Medications Allergies/Adverse Reactions: Allergies Allergy/AdvReac Type Severity Reaction Status Date / Time No Known Allergies Allergy Verified 12/12/17 16:30 PMH/Surg Hx/FS Hx/Imm Hx Endocrine/Hematology History: Denies: Hx Anticoagulant Therapy, Hx Diabetes, Hx Thyroid Disease Cardiovascular History: Denies: Hx Hypertension, Hx Pacemaker/ICD Respiratory History: Denies: Hx Asthma, Hx Chronic Obstructive Pulmonary Disease (COPD) History: Reports: Hx Acute Renal Failure Denies: Hx Renal Disease Sensory History: Denies: Hx Contacts or Glasses, Hx Hearing Aid Opthamlomology History: Denies: Hx Contacts or Glasses Neurological History: Denies: Hx Dementia, Hx Seizures Psychiatric History: Reports: Hx Anxiety, Hx Depression, Hx Inpatient Treatment , Hx Community Mental Health Tx, Hx Bipolar Disorder - Type 1, Hx Suicide Attempt, Hx of Violent Episodes Against Others - PT denies hx of violence against others, Hx Substance Abuse Denies: Hx Attention Deficit Hyperactivity Disorder, Hx Eating Disorder, Hx Panic Disorder, Hx Post Traumatic Stress Disorder, Hx Schizophrenia, Other Psychiatric Issues/Disorders - Immunization History Date of Tetanus Vaccine: UTD Date of Influenza Vaccine: UTD Infectious Disease History: Denies: Hx Clostridium Difficile, Hx Hepatitis, Hx Human Immunodeficiency Virus (HIV), Hx Shingles, Hx Tuberculosis - Family History Known Family History: Positive: Other - alcoholism Family History: Patient denies relevant family medical history. - Social History Alcohol Use: Daily Alcohol Amount: 18-20 beers per day Hx Substance Use: No Substance Use Type: Reports: None Hx Tobacco Use: No Smoking Status (MU): Never Smoked Tobacco Amount Used/How Often: Pt has not used any tobacco products in the last 30 days Have You Smoked in the Last Year: No Review of Systems Constitutional: Negative Positive: Depressed All Other Systems Reviewed And Are Negative: Yes Physical Exam - Summary Physical Exam Summary: VITAL SIGNS: Reviewed. GENERAL: Patient is a well-developed and nourished male who is lying comfortable in the stretcher. Patient is not in any acute respiratory distress. Patient smells of alcohol. HEAD AND FACE: No signs of trauma. No ecchymosis, hematomas or skull depressions. No sinus tenderness. EYES: PERRLA, EOMI x 2, No injected conjunctiva, no nystagmus. EARS: Hearing grossly intact. Ear canals and tympanic membranes are within normal limits. MOUTH: Oropharynx within normal limits. NECK: Supple, trachea is midline, no adenopathy, no JVD, no carotid bruit, no c- spine tenderness, neck with full ROM. CHEST: Symmetric, no tenderness at palpation LUNGS: Clear to auscultation bilaterally. No wheezing or crackles. CVS: Regular rate and rhythm, S1 and S2 present, no murmurs or gallops appreciated. ABDOMEN: Soft, non-tender. No signs of distention. No rebound no guarding, and no masses palpated. Bowel sounds are normal. EXTREMITIES: FROM in all major joints, no edema, no cyanosis or clubbing. NEURO: Alert and oriented x 3. No acute neurological deficits. Speech is normal and follows commands. SKIN: Dry and warm PSYCH: Depressed, quiet, and denies any suicidal thoughts or plan. No homicidal thoughts or plan. No signs of psychosis or pressure speech. No tangential speech. Triage Information Reviewed: Yes Vital Signs On Initial Exam: Initial Vitals Temp Pulse Resp BP Pulse Ox 98 F 113 18 115/89 93 04/18/18 16:41 04/18/18 16:41 04/18/18 16:41 04/18/18 16:41 04/18/18 16:41 Vital Signs Reviewed: Yes Diagnostics - Vital Signs Vital Signs Temp Pulse Resp BP Pulse Ox 04/18/18 16:42 22 04/18/18 16:41 98 F 113 18 115/89 93 - Laboratory Lab Results: Lab Results 04/18/18 04/18/18 Range/Units 16:47 16:47 WBC 10.5 (3.5-10.8) 10^3/ul RBC 5.39 (4.0-5.4) 10^6/ul Hgb 16.0 (14.0-18.0) g/dl Hct 46 (42-52) % MCV 85 (80-94) fL MCH 30 (27-31) pg MCHC 35 (31-36) g/dl RDW 13 (10.5-15) % Plt Count 311 (150-450) 10^3/ul MPV 7.1 L (7.4-10.4) um3 Neut % (Auto) 68.0 (38-83) % Lymph % (Auto) 24.4 L (25-47) % Greene % (Auto) 6.0 (0-7) % Eos % (Auto) 0.7 (0-6) % Baso % (Auto) 0.9 (0-2) % Absolute Neuts (auto) 7.1 (1.5-7.7) 10^3/ul Absolute Lymphs (auto) 2.6 (1.0-4.8) 10^3/ul Absolute Monos (auto) 0.6 (0-0.8) 10^3/ul Absolute Eos (auto) 0.1 (0-0.6) 10^3/ul Absolute Basos (auto) 0.1 (0-0.2) 10^3/ul Absolute Nucleated RBC 0.1 10^3/ul Nucleated RBC % 0.6 Sodium 141 (139-145) mmol/L Potassium 3.8 (3.5-5.0) mmol/L Chloride 102 (101-111) mmol/L Carbon Dioxide 25 (22-32) mmol/L Anion Gap 14 H (2-11) mmol/L BUN 11 (6-24) mg/dL Creatinine 1.24 H (0.67-1.17) mg/dL Est GFR ( Amer) 85.3 (>60) Est GFR (Non-Af Amer) 66.3 (>60) BUN/Creatinine Ratio 8.9 (8-20) Glucose 100 (70-100) mg/dL Calcium 9.3 (8.6-10.3) mg/dL Total Bilirubin 0.30 (0.2-1.0) mg/dL AST 23 (13-39) U/L ALT 23 (7-52) U/L Alkaline Phosphatase 113 H (34-104) U/L Total Protein 8.2 (6.4-8.9) g/dL Albumin 4.7 (3.2-5.2) g/dL Globulin 3.5 (2-4) g/dL Albumin/Globulin Ratio 1.3 (1-3) TSH 0.85 (0.34-5.60) mcIU/mL Salicylates < 2.50 (<30) mg/dL Acetaminophen < 15 mcg/mL Serum Alcohol 276 H (<10) mg/dL Result Diagrams: 04/18/18 16:47 04/18/18 16:47 Lab Statement: Any lab studies that have been ordered have been reviewed, and results considered in the medical decision making process. Course/Dx - Course Assessment/Plan: This patient is a 33-year-old male who presents to the emergency department be an ambulance with chief complaint of having multiple mental diseases and today he had consumed alcohol. EMS also reports that the patient is not taking any of her psychiatric medications. Physical sounds without any significant abnormality except for creatinine 1.24 and serum alcohol of 276. The patient is medically clear at 10 PM. Patient is awaiting for a psychiatric admission. Patient is hemodynamically stable. Patient will be signed out to Dr. Quevedo at shift change. - Differential Dx/Clinical Impression Differential Diagnosis/HQI/PQRI: Positive: Anxiety, Depression Provider Diagnosis: ETOH abuse Discharge - Sign-Out/Discharge Documenting (check all that apply): Sign-Out Patient Signing out patient TO: Wili Quevedo - Discharge Plan Condition: Stable Referrals: Dali Ely MD [Primary Care Provider] - - Billing Disposition and Condition Condition: STABLE The documentation as recorded by the Aaron byrne Julia accurately reflects the service I personally performed and the decisions made by , Emiliano Calles MD.
[2018-04-19 06:12] VITALS: BP 118/82
--- NOTE | 2018-04-19 06:45 | ED ---
Margaret Dukes Rebecca, scribed for Wili Quevedo MD on 04/19/18 at 0202 . Progress - Progress Note Progress Note: Pt was signed out by Dr. Calles, pending dispo, awaiting MHE. Course/Dx - Course Course Of Treatment: Pt was signed out by Dr. Calles, pending dispo, awaiting MHE. Upon completion of MHE and consultation with Dr. Medina, it has been determined that the pt will be D/C. If his father is able to pick him up tonight , he will be discharged now. Otherwise, he will be held until the morning at which point he would be able to go home. Dx is adjustment disorder. - Diagnoses Provider Diagnoses: Adjustment disorder Discharge - Sign-Out/Discharge Documenting (check all that apply): Discharge/Admit/Transfer - Discharge, Receiving Sign-Out Receiving patient FROM: Emiliano Calles - Discharge Plan Condition: Stable Disposition: HOME Referrals: Dali Ely MD [Primary Care Provider] - The documentation as recorded by the Margaret byrne Rebecca accurately reflects the service I personally performed and the decisions made by Sae otoole Abdul, MD.
== END 2018-04-19 07:05 | disposition home or self-care (01) ==
LOC: ED 16:14
DX: F10.10 Alcohol abuse, uncomplicated (principal); Y90.8 Blood alcohol level of 240 mg/100 ml or more; F43.20 Adjustment disorder, unspecified
CPT/HCPCS: 36415; 80053; 80320; 80329; 84443; 85025; 99285; A9270-GY; G0480

== ENCOUNTER 2018-06-17 18:17 | Inpatient (IN) | payer OTHER ==
--- NOTE | 2018-06-17 18:28 | ED ---
Substance Abuse/Use - HPI Summary HPI Summary: This is Patricia byrne, documenting for attending Ceasar Esquivel MD. This patient is a 33 year old M KAM, 2208, to [facility]. Patient is reportedly not taking his medications for bipolar disorder. Patient is rather non- communicative but shakes head no when asked if he has hurt himself or others. I, Dr. Esquivel personally performed the services described in this documentation as scribed in my presence and it is both accurate and complete. - History Of Current Complaint Stated Complaint: 2208 Time Seen by Provider: 06/17/18 18:24 Hx Obtained From: Patient, EMS Onset/Duration of Drug/ETOH Abuse: Years Overdose Characteristics: Oral Aggravating Factor(s): Medication Non-compliance Related Hx: Prior Drug Abuse Counseling/Admission - Allergies/Home Medications Allergies/Adverse Reactions: Allergies Allergy/AdvReac Type Severity Reaction Status Date / Time No Known Allergies Allergy Verified 12/12/17 16:30 PMH/Surg Hx/FS Hx/Imm Hx Endocrine/Hematology History: Denies: Hx Anticoagulant Therapy, Hx Diabetes, Hx Thyroid Disease Cardiovascular History: Denies: Hx Hypertension, Hx Pacemaker/ICD Respiratory History: Denies: Hx Asthma, Hx Chronic Obstructive Pulmonary Disease (COPD) History: Reports: Hx Acute Renal Failure Denies: Hx Renal Disease Sensory History: Denies: Hx Contacts or Glasses, Hx Hearing Aid Opthamlomology History: Denies: Hx Contacts or Glasses Neurological History: Denies: Hx Dementia, Hx Seizures Psychiatric History: Reports: Hx Anxiety, Hx Depression, Hx Inpatient Treatment , Hx Community Mental Health Tx, Hx Bipolar Disorder - Type 1, Hx Suicide Attempt, Hx of Violent Episodes Against Others - PT denies hx of violence against others, Hx Substance Abuse Denies: Hx Attention Deficit Hyperactivity Disorder, Hx Eating Disorder, Hx Panic Disorder, Hx Post Traumatic Stress Disorder, Hx Schizophrenia, Other Psychiatric Issues/Disorders - Immunization History Date of Tetanus Vaccine: UTD Date of Influenza Vaccine: UTD Infectious Disease History: Denies: Hx Clostridium Difficile, Hx Hepatitis, Hx Human Immunodeficiency Virus (HIV), Hx Shingles, Hx Tuberculosis - Family History Known Family History: Positive: Other - alcoholism Family History: Patient denies relevant family medical history. - Social History Alcohol Use: Daily Alcohol Amount: 18-20 beers per day Hx Substance Use: No Substance Use Type: Reports: None Hx Tobacco Use: No Smoking Status (MU): Never Smoked Tobacco Amount Used/How Often: Pt has not used any tobacco products in the last 30 days Have You Smoked in the Last Year: No Review of Systems Negative: Fever, Chills Negative: Erythema Negative: Sore Throat Negative: Chest Pain Negative: Shortness Of Breath, Cough Negative: Abdominal Pain, Vomiting, Nausea Negative: dysuria, hematuria Negative: Myalgia, Edema Negative: Rash Neurological: Negative - dizziness All Other Systems Reviewed And Are Negative: Yes Physical Exam - Summary Physical Exam Summary: Constitutional: Well-developed, Well-nourished, Alert. (-) Distressed, Able to stand and walk around Skin: Warm, Dry HENT: Normocephalic; Atraumatic Eyes: Conjunctiva normal Neck: Musculoskeletal ROM normal neck. (-) JVD, (-) Stridor, (-) Tracheal deviation Cardio: Rhythm regular, rate normal, Heart sounds normal; Intact distal pulses; The pedal pulses are 2+ and symmetric. Radial pulses are 2+ and symmetric. (-) Murmur Pulmonary/Chest wall: Effort normal. (-) Respiratory distress, (-) Wheezes, (-) Rales Abd: Soft, (-) epigastric tenderness, (-) Distension, (-) Guarding, (-) Rebound Musculoskeletal: (-) Edema Lymph: (-) Cervical adenopathy Neuro: Alert, Oriented x3 Psych: Extremely flat affect, Patient does not respond to direction Triage Information Reviewed: Yes Vital Signs Reviewed: Yes Diagnostics - Laboratory Result Diagrams: 06/17/18 18:45 06/17/18 18:45 Lab Statement: Any lab studies that have been ordered have been reviewed, and results considered in the medical decision making process. Course/Dx - Course Course Of Treatment: 33 year old M KAM, 2208, to [facility]. Patient is reportedly not taking his medications for bipolar disorder. Patient is rather non- communicative but shakes head no when asked if he has hurt himself or others. Upon arrival in ED, patient did no listen to instructions to get back into bed; he recieved sedation because due to potential fall risk. While in ED patient SaO2 flucuates between 94 and 86 on RA. An VBG was obtained. Bloodwork reveals a lactic acid of 3.8. UA is indicative of a UTI. Serum alcohol is 288. Patient is admitted by Dr. Street to the medical unit. - Diagnoses Provider Diagnoses: Alcoholic ketoacidosis Discharge - Sign-Out/Discharge Documenting (check all that apply): Patient Departure - Discharge Plan Condition: Stable Disposition: ADMITTED TO [facility] Referrals: Dali Ely MD [Primary Care Provider] -
[2018-06-17 18:55] LABS: ABS Basophils 0.1 10^3/ul (0-0.2); ABS Eosinophils 0 10^3/ul (0-0.6); ABS Lymphocytes 1.9 10^3/ul (1.0-4.8); ABS Monocytes 1.2 10^3/ul (0-0.8); ABS Neutrophils 4.3 10^3/ul (1.5-7.7); ABS Nucleated RBC 0 10^3/ul; Eosinophil % 0.1 % (0-6); Hematocrit 47 % (42-52); Hemoglobin 16.2 g/dl (14.0-18.0); Lymphocyte % 25.6 % (25-47); Mean Corpuscular HGB Conc 35 g/dl (31-36); Mean Corpuscular Hemoglobin 30 pg (27-31); Mean Corpuscular Volume 87 fL (80-94); Mean Platelet Volume 7.3 um3 (7.4-10.4); Nucleated Red Blood Cells % 0.2; Platelet Count 280 10^3/ul (150-450); Red Blood Count 5.42 10^6/ul (4.00-5.40); Red Cell Distribution Width 15 % (10.5-15); White Blood Count 7.5 10^3/ul (3.5-10.8)
[2018-06-17 19:48] LABS: Urine Appearance Cloudy; Urine Blood 3+ (Negative); Urine Color Amber; Urine Ketones 1+ (Negative); Urine Protein 3+(>=500 mg/dL) (Negative); Urine Red Blood Cell 2+(6-10/hpf) (Absent); Urine Specific Gravity 1.032 (1.010-1.030); Urine Urobilinogen Negative (Negative); Urine White Blood Cell Trace(0-5/hpf) (Absent)
[2018-06-17 20:39] LABS: EGFR Non-African American 80.4 (>60)
[2018-06-17] MEDS ORDERED: Thiamine IV 100 MG, Folic Acid IV* 1 MG, Multiple Vitamin IV ADULT* 10 ML in D5NS 0.9% ... IV ONE (21:49)
[2018-06-17] MEDS ORDERED: NS 0.9% 1000 ML* 1,000 ML IV ONE ×2 (21:49→22:28)
[2018-06-17] MEDS ORDERED: D5NS 0.9% 1000 ML BAG* 1,000 ML IV ONE (22:04)
[2018-06-17] MEDS ORDERED: Folic Acid IV* 50 MG/10 ML VIAL ONE (22:04)
[2018-06-17] MEDS ORDERED: Multiple Vitamin IV ADULT* 10 ML VIAL ONE (22:04)
--- NOTE | 2018-06-17 23:14 | HP ---
H&P (Free Text) History and Physical: PCP: Hitesh Ely MD Date/Time: 06/17/2018 5444 CC: alcohol withdrawal HPI: Mr Anthony is a 33YO male HX alcoholism, alcoholic hepatitis, depression with suicidality, & bipolar disorder who was brought to [facility] ED via EMS who were called by police after being tipped off by his AA counselor that a phone call with the patient revealed him to be unable to adequately communicate. Per report , EMS found 3 empty bottles of vodka and 1.5 cases of beer in the sink. It was unable to be determined over what timeframe this was consumed, but Mr Anthony was sluggish in thought and unsteady on his feet, appropriately brought in for evaluation under 2209. In the ED he reported stopping all his medications several days ago, but was unsure of what they were. He was repetitively getting out of bed confused with difficulty follow requests and therefore given haloperidol 5mg, lorazepam 2mg, & diphenhydramine 50mg which is not listed in the computer, but confirmed by me on his paper chart with ED nursing. As a result, upon my evaluation he opens his eyes only with tactile stimulation, does not focus or attempt to answer questions, and quickly goes back to sleep. He appears objectively comfortable and without any distress. PMedHx alcoholism alcoholic hepatitis depression with suicidality bipolar disorder medication non-adherence Ambulatory Orders Mirtazapine TAB* [Remeron TAB*] 30 mg PO DAILY 04/16/17 lamoTRIgine TAB(*) [Lamictal TAB(*)] 200 mg PO BEDTIME 04/16/17 Lurasidone(*) [Latuda] 120 mg PO BEDTIME #30 tab MDD 120 mg 12/16/17 Naltrexone TAB* 50 mg PO DAILY 01/28/18 Allergies No Known Allergies Allergy (Verified 12/12/17 16:30) PSurgHx unobtainable SocHx: per medical record: no tobacco or recreational drugs, daily alcohol consumption currently unable to be quantified; otherwise unobtainable FamHx: unobtainable ROS: as above, otherwise reviewed and all were negative vitals: Vital Signs Temp 36.8 C 06/17/18 18:33 Pulse 74 06/17/18 23:17 Resp 15 06/17/18 23:17 BP 120/74 06/17/18 23:17 Pulse Ox 95 06/17/18 23:17 Intake & Output 06/16/18 06/17/18 06/17/18 23:59 11:59 23:59 Intake Total 1999 Balance 1999 Weight 117.934 kg Intake: IV Fluids 1999 Constitutional: NAD, normally developed, obese unkempt white male HEENM: atraumatic; sclera/conjunctiva: anicteric/mildly injected OU; hearing: unable to assess; oropharynx: clear, mucosa tacky Neck: soft tissue: non-tender; thyroid: normal Pulmonary: clear to auscultation bilaterally, good aeration, no accessory muscle use CV: RR/RR, normal S1S2, no carotid bruit, no jugular venous distention, 2+ B DP/ PT, no edema Abdominal: soft, non-distended, non-tender, no rebound/guarding/rigidity, normoactive bowel sounds, no hepatosplenomegaly or masses, no costovertebral angle tenderness Musculoskeletal: general: grossly intact, non-tender; gait: unable to ambulate currently Integumental: normal appearance and texture of exposed skin Psychiatric orientation: sedated, disoriented affect: somnolent mood: acquiescent eye contact: absent content: absent memory: unable to assess responses: minimal insight: poor Testing: Lab Results 06/17/18 06/17/18 06/17/18 Range/Units 18:45 18:45 19:34 WBC 7.5 (3.5-10.8) 10^3/ul RBC 5.42 H (4.00-5.40) 10^6/ul Hgb 16.2 (14.0-18.0) g/dl Hct 47 (42-52) % MCV 87 (80-94) fL MCH 30 (27-31) pg MCHC 35 (31-36) g/dl RDW 15 (10.5-15) % Plt Count 280 (150-450) 10^3/ul MPV 7.3 L (7.4-10.4) um3 Neut % (Auto) 57.6 (38-83) % Lymph % (Auto) 25.6 (25-47) % [place] % (Auto) 15.9 H (0-7) % Eos % (Auto) 0.1 (0-6) % Baso % (Auto) 0.8 (0-2) % Absolute Neuts (auto) 4.3 (1.5-7.7) 10^3/ul Absolute Lymphs (auto) 1.9 (1.0-4.8) 10^3/ul Absolute Monos (auto) 1.2 H (0-0.8) 10^3/ul Absolute Eos (auto) 0 (0-0.6) 10^3/ul Absolute Basos (auto) 0.1 (0-0.2) 10^3/ul Absolute Nucleated RBC 0 10^3/ul Nucleated RBC % 0.2 VBG pH (7.33-7.43) VBG pCO2 (41-51) mmHg VBG pO2 (35-45) mmHg VBG HCO3 (24-28) mmol/L VBG O2 Saturation (70-80) % VBG Base Excess (0-4) Sodium 142 (135-145) mmol/L Potassium 3.6 (3.5-5.0) mmol/L Chloride 100 L (101-111) mmol/L Carbon Dioxide 19 L (22-32) mmol/L Anion Gap 23 H (2-11) mmol/L BUN 13 (6-24) mg/dL Creatinine 1.05 (0.67-1.17) mg/dL Est GFR ( Amer) 97.3 (>60) Est GFR (Non-Af Amer) 80.4 (>60) BUN/Creatinine Ratio 12.4 (8-20) Glucose 109 H (70-100) mg/dL Lactic Acid (0.5-2.0) mmol/L Calcium 9.7 (8.6-10.3) mg/dL Total Bilirubin 0.60 (0.2-1.0) mg/dL AST 141 H (13-39) U/L ALT 133 H (7-52) U/L Alkaline Phosphatase 112 H (34-104) U/L Total Protein 8.0 (6.4-8.9) g/dL Albumin 4.9 (3.2-5.2) g/dL Globulin 3.1 (2-4) g/dL Albumin/Globulin Ratio 1.6 (1-3) TSH 1.88 (0.34-5.60) mcIU/mL Urine Color Jewels Urine Appearance Cloudy Urine pH 5.0 (5-9) Ur Specific [place] 1.032 H (1.010-1.030) Urine Protein 3+(>=500 mg/dl) A (Negative) Urine Ketones 1+ A (Negative) Urine Blood 3+ A (Negative) Urine Nitrate Negative (Negative) Urine Bilirubin Negative (Negative) Urine Urobilinogen Negative (Negative) Ur Leukocyte Esterase Negative (Negative) Urine WBC (Auto) Trace(0-5/hpf) (Absent) Urine RBC (Auto) 2+(6-10/hpf) A (Absent) Ur Squamous Epith Cells Present A (Absent) Urine Bacteria Absent (Absent) Hyaline Casts Present A (Absent) Urine Glucose Negative (Negative) Salicylates < 2.50 (<30) mg/dL Urine Opiates Screen (None Detect) Acetaminophen < 15 mcg/mL Ur Barbiturates Screen (None Detect) Ur Phencyclidine Scrn (None Detect) Ur Amphetamines Screen (None Detect) U Benzodiazepines Scrn (None Detect) Urine Cocaine Screen (None Detect) U Cannabinoids Screen (None Detect) Serum Alcohol 288 H (<10) mg/dL 06/17/18 06/17/18 06/17/18 Range/Units 19:34 22:05 22:05 WBC (3.5-10.8) 10^3/ul RBC (4.00-5.40) 10^6/ul Hgb (14.0-18.0) g/dl Hct (42-52) % MCV (80-94) fL MCH (27-31) pg MCHC (31-36) g/dl RDW (10.5-15) % Plt Count (150-450) 10^3/ul MPV (7.4-10.4) um3 Neut % (Auto) (38-83) % Lymph % (Auto) (25-47) % [place] % (Auto) (0-7) % Eos % (Auto) (0-6) % Baso % (Auto) (0-2) % Absolute Neuts (auto) (1.5-7.7) 10^3/ul Absolute Lymphs (auto) (1.0-4.8) 10^3/ul Absolute Monos (auto) (0-0.8) 10^3/ul Absolute Eos (auto) (0-0.6) 10^3/ul Absolute Basos (auto) (0-0.2) 10^3/ul Absolute Nucleated RBC 10^3/ul Nucleated RBC % VBG pH 7.45 H (7.33-7.43) VBG pCO2 39 L (41-51) mmHg VBG pO2 70 H (35-45) mmHg VBG HCO3 27.1 (24-28) mmol/L VBG O2 Saturation 94.7 H (70-80) % VBG Base Excess 3.0 (0-4) Sodium (135-145) mmol/L Potassium (3.5-5.0) mmol/L Chloride (101-111) mmol/L Carbon Dioxide (22-32) mmol/L Anion Gap (2-11) mmol/L BUN (6-24) mg/dL Creatinine (0.67-1.17) mg/dL Est GFR ( Amer) (>60) Est GFR (Non-Af Amer) (>60) BUN/Creatinine Ratio (8-20) Glucose (70-100) mg/dL Lactic Acid 3.8 H* (0.5-2.0) mmol/L Calcium (8.6-10.3) mg/dL Total Bilirubin (0.2-1.0) mg/dL AST (13-39) U/L ALT (7-52) U/L Alkaline Phosphatase (34-104) U/L Total Protein (6.4-8.9) g/dL Albumin (3.2-5.2) g/dL Globulin (2-4) g/dL Albumin/Globulin Ratio (1-3) TSH (0.34-5.60) mcIU/mL Urine Color Urine Appearance Urine pH (5-9) Ur Specific Lam[place] (1.010-1.030) Urine Protein (Negative) Urine Ketones (Negative) Urine Blood (Negative) Urine Nitrate (Negative) Urine Bilirubin (Negative) Urine Urobilinogen (Negative) Ur Leukocyte Esterase (Negative) Urine WBC (Auto) (Absent) Urine RBC (Auto) (Absent) Ur Squamous Epith Cells (Absent) Urine Bacteria (Absent) Hyaline Casts (Absent) Urine Glucose (Negative) Salicylates (<30) mg/dL Urine Opiates Screen None detected (None Detect) Acetaminophen mcg/mL Ur Barbiturates Screen None detected (None Detect) Ur Phencyclidine Scrn None detected (None Detect) Ur Amphetamines Screen None detected (None Detect) U Benzodiazepines Scrn None detected (None Detect) Urine Cocaine Screen None detected (None Detect) U Cannabinoids Screen None detected (None Detect) Serum Alcohol (<10) mg/dL CT brain WO, personally reviewed: IMPRESSION: No acute intracranial pathology identified by CT. Impression: 33M presenting with confusion and tachycardia concerning with early alcohol withdrawal despite a QUINTANILLA of 288 as it is not unusual for him to present with QUINTANILLA's well above 300 DIAGNOSIS & PLAN Primary AMS, acute intoxication vs early alcohol withdrawal : WAM protocol : NPO until swallowing evaluation passed : up with assistance only 2nd fall risks : safety monitor lactic acidosis w/ wide anion gap : suspect alcoholic ketosis : IVFs & trend lactic mild hepatitis, suspect mild alcoholic although AST:ALT is not 2:1 : IVFs, trend Secondary bipolar disorder/depression w/ suicidality : restart medications once able to be reconciled : psychiatry consult entered : suspect may need inpatient psychiatric stay to further stabilize Admission Rational: observation for AMS, suspect alcohol withdrawal, medication non-adherence DVTp: DALE Code Status: full
[2018-06-17] MEDS ORDERED: Ondansetron ODT TAB* 4 MG PO PRN (23:31)
[2018-06-17] MEDS ORDERED: Acetaminophen TAB* 325 MG PO PRN (23:33)
[2018-06-18] MEDS: NS 0.9% 1000 ML* 1,000 ML IV SCH ×4 (01:11→12:22)
[2018-06-18] MEDS: LORazepam INJ* 2 MG/ML 1 ML VIAL IM SCH ×4 (03:00→19:56)
[2018-06-18] MEDS: Omeprazole CAP* 20 MG PO SCH (06:08)
[2018-06-18 06:50] LABS: EGFR Non-African American 106.9 (>60)
--- NOTE | 2018-06-18 07:54 | RAD ---
INDICATION: Altered mental status COMPARISON: CT brain April 19, 2017 TECHNIQUE: Noncontrast axial source images were acquired from the skull base to the vertex. FINDINGS: Ventricles/sulci: The ventricles and cisterns are normal in size and configuration for age. Brain parenchyma: There is no focal parenchymal finding, evidence of intracranial mass, or intracranial mass effect. Intracranial hemorrhage:None. Extra-axial spaces: There are no abnormal extra axial fluid collections or evidence of extra-axial mass. Calvarium: There is no calvarial fracture or other calvarial abnormality. Scalp: There is no evidence of scalp or extracalvarial soft tissue abnormality. Paranasal sinuses/mastoid: There is a mucous distention cyst or polyp in the right maxillary antrum, unchanged. Other: None. IMPRESSION: No acute intracranial findings or interval changes
[2018-06-18] MEDS ORDERED: Potassium Chlor TAB* 20 MEQ TAB.ER PO ONE (08:22)
[2018-06-18] MEDS: Folic Acid TAB* 1 MG PO SCH (10:35)
[2018-06-18] MEDS: Thiamine TAB* 100 MG TAB PO SCH (10:35)
[2018-06-18] MEDS: Multivitamins/Minerals TAB PO SCH (10:35)
--- NOTE | 2018-06-18 11:02 | PN ---
Subjective Date of Service: 06/18/18 Interval History: Patient reports tremors. Denies hallucinations. No N/V or abdominal pain. Reports no appetite. Denies CP or SOB. Reports he has been in rehab prior but has no interest in going to rehab after hospitalization Objective Active Medications: Acetaminophen (Tylenol Tab*) 650 mg PO Q4H PRN PRN Reason: PAIN Folic Acid (Folvite Tab*) 1 mg PO DAILY [facility] Last Admin: 06/18/18 10:35 Dose: 1 mg Sodium Chloride (Ns 0.9% 1000 Ml*) 1,000 mls @ 125 mls/hr IV PER RATE [facility] Last Admin: 06/18/18 03:27 Dose: 125 mls/hr Sodium Chloride (Ns 0.9% 1000 Ml*) 1,000 mls @ 0 mls/hr IV WIDE OPEN [facility] Stop: 06/18/18 23:46 Last Admin: 06/18/18 02:18 Dose: 999 mls/hr Lorazepam (Ativan Inj*) 0 - 6 mg IM .PER [facility] PROTOCOL [facility]; Protocol Last Admin: 06/18/18 03:00 Dose: 2 mg Multivitamins/Minerals (Theragran/Minerals Tab*) 1 tab PO DAILY [facility] Last Admin: 06/18/18 10:35 Dose: 1 tab Omeprazole (Prilosec Cap*) 20 mg PO DAILY@0600 [facility] Last Admin: 06/18/18 06:08 Dose: 20 mg Ondansetron HCl (Zofran Odt Tab*) 4 mg PO Q6H PRN PRN Reason: n/v Thiamine HCl (Vitamin B-1 Tab*) 100 mg PO DAILY [facility] Last Admin: 06/18/18 10:35 Dose: 100 mg Vital Signs - 8 hr 06/18/18 06/18/18 06/18/18 05:10 05:19 07:30 Temperature 98.5 F 98.4 F Pulse Rate 80 97 Respiratory 16 22 34 Rate Blood Pressure 117/61 149/89 (mmHg) O2 Sat by Pulse 97 97 Oximetry 06/18/18 09:05 Temperature 98.8 F Pulse Rate 82 Respiratory 20 Rate Blood Pressure 104/54 (mmHg) O2 Sat by Pulse 98 Oximetry Oxygen Devices in Use Now: None Appearance: A+Ox3 - appears to have generalized tremors, answering questions appropriately Eyes: No Scleral Icterus, PERRLA Ears/Nose/Mouth/Throat: NL Teeth, Lips, Gums, Mucous Membranes Moist Neck: NL Appearance and Movements; NL JVP Respiratory: Clear to Auscultation Cardiovascular: NL Sounds; No Murmurs; No JVD, RRR, No Edema Abdominal: NL Sounds; No Tenderness; No Distention, - - obese Extremities: No Edema, No Clubbing, Cyanosis Skin: No Rash or Ulcers, No Nodules or Sclerosis Neurological: Alert and Oriented x 3, NL Sensation, NL Gait, NL Muscle Strength and Tone, - - generalized tremors Lines/Tubes/Other Access: Clean, Dry and Intact Peripheral IV Nutrition: Taking PO's - drinking water Result Diagrams: 06/17/18 18:45 06/18/18 06:21 Assess/Plan/Problems-Billing Assessment: - Patient Problems (1) Alcohol withdrawal Comment: Stable. Continues to have tremors/diaphoresis Cont monitoring per [facility] protocol and treatment with Ativan prn Replace electrolytes, monitor daily Social work/director case following (2) Elevated LFTs Comment: - Suspect in the setting of alcohol use - Repeat liver panel in am. - Recommend liver us when pateint can tolerate it (3) History of bipolar disorder Comment: - Continue home medications when medications are confirmed (4) DVT prophylaxis Comment: - SCDs (5) Full code status Status and Disposition: switch to inpatient for alcohol intoxication/withdrawal.
[2018-06-18] MEDS ORDERED: Magnesium Sulfate IV* 2 GM in NS 0.9% 100 ML* 100 ML IV ONE (11:30)
[2018-06-18] MEDS: Magnesium Sulfate 2 GM IV* 2 GM/50 ML BAG IVPB ONE ×2 (12:23→15:07)
[2018-06-18] MEDS ORDERED: Haloperidol INJ IV/IM* 5 MG/ML AMP ONE (13:50)
[2018-06-18] MEDS ORDERED: diPHENhydraMINE IV* 50 MG/ML 1 ml VIAL (BENADRYL) ONE (13:50)
[2018-06-18] MEDS ORDERED: LORazepam INJ* 2 MG/ML 1 ML VIAL ONE (13:50)
[2018-06-18] MEDS ORDERED: Magnesium Sulfate 2 GM IV* 2 GM/50 ML BAG ONE (15:05)
[2018-06-18] MEDS: STERILE WATER FOR INJ IV ONE ×2 (15:09→15:10)
[2018-06-18] MEDS: MAGNESIUM SULFATE IV ONE ×2 (15:09→15:10)
--- NOTE | 2018-06-18 15:25 | CONSULT ---
Consult Consult: Psychiatry was asked to see Mr. Anthony, whom we know from previous [facility] admits , on , presumably due to non-adherence with prescribed psychiatric medications. The patient is asleep and unarousable during my brief visit. I will try to re-engage with him tomorrow.
[2018-06-19] MEDS: LORazepam INJ* 2 MG/ML 1 ML VIAL IM SCH ×4 (01:28→15:58)
[2018-06-19] MEDS: Omeprazole CAP* 20 MG PO SCH (05:57)
[2018-06-19 06:36] LABS: ABS Basophils 0 10^3/ul (0-0.2); ABS Eosinophils 0.1 10^3/ul (0-0.6); ABS Lymphocytes 1.1 10^3/ul (1.0-4.8); ABS Monocytes 0.5 10^3/ul (0-0.8); ABS Neutrophils 2.5 10^3/ul (1.5-7.7); ABS Nucleated RBC 0 10^3/ul; Eosinophil % 1.5 % (0-6); Hematocrit 40 % (42-52); Hemoglobin 13.7 g/dl (14.0-18.0); Lymphocyte % 26.5 % (25-47); Mean Corpuscular HGB Conc 35 g/dl (31-36); Mean Corpuscular Hemoglobin 30 pg (27-31); Mean Corpuscular Volume 86 fL (80-94); Mean Platelet Volume 7.4 um3 (7.4-10.4); Nucleated Red Blood Cells % 0.1; Platelet Count 161 10^3/ul (150-450); Red Blood Count 4.59 10^6/ul (4.00-5.40); Red Cell Distribution Width 14 % (10.5-15); White Blood Count 4.2 10^3/ul (3.5-10.8)
--- NOTE | 2018-06-19 06:52 | PN ---
Subjective Date of Service: 06/19/18 Interval History: patient reports he feels a little better today with less tremors but continues to feel that he is going through withdrawals. per primary nurse he is still scoring on the [facility] protocol. Justin has been sleeping a lot per staff. he awakes easily and is currently sitting up on the side of the bed. he is answering questions appropriately. he denies hallucination. No abdominal pain or nausea. Reports little appetite but has been eating a little. reports he feels steady on his feet. Objective Active Medications: Acetaminophen (Tylenol Tab*) 650 mg PO Q4H PRN PRN Reason: PAIN Folic Acid (Folvite Tab*) 1 mg PO DAILY [facility] Last Admin: 06/18/18 10:35 Dose: 1 mg Sodium Chloride (Ns 0.9% 1000 Ml*) 1,000 mls @ 125 mls/hr IV PER RATE [facility] Last Admin: 06/18/18 12:22 Dose: 125 mls/hr Lorazepam (Ativan Inj*) 0 - 6 mg IM .PER [facility] PROTOCOL [facility]; Protocol Last Admin: 06/19/18 01:28 Dose: 2 mg Multivitamins/Minerals (Theragran/Minerals Tab*) 1 tab PO DAILY [facility] Last Admin: 06/18/18 10:35 Dose: 1 tab Omeprazole (Prilosec Cap*) 20 mg PO DAILY@0600 [facility] Last Admin: 06/19/18 05:57 Dose: 20 mg Ondansetron HCl (Zofran Odt Tab*) 4 mg PO Q6H PRN PRN Reason: n/v Thiamine HCl (Vitamin B-1 Tab*) 100 mg PO DAILY [facility] Last Admin: 06/18/18 10:35 Dose: 100 mg Vital Signs - 8 hr 06/18/18 06/19/18 06/19/18 23:22 01:12 01:22 Pulse Rate 52 134 120 Respiratory 20 20 20 Rate Blood Pressure 116/61 127/93 129/81 (mmHg) O2 Sat by Pulse 96 98 98 Oximetry 06/19/18 06/19/18 06/19/18 01:23 01:28 03:06 Pulse Rate 111 83 Respiratory 18 20 Rate Blood Pressure 147/85 (mmHg) O2 Sat by Pulse 99 Oximetry 06/19/18 06/19/18 03:51 05:00 Pulse Rate 95 Respiratory 20 Rate Blood Pressure 121/70 (mmHg) O2 Sat by Pulse Oximetry Oxygen Devices in Use Now: None Appearance: 33 yo male sitting up on the side of [facility] bed in NAD, A+O x3 Eyes: No Scleral Icterus, PERRLA Ears/Nose/Mouth/Throat: NL Teeth, Lips, Gums, Mucous Membranes Moist Respiratory: Clear to Auscultation Cardiovascular: NL Sounds; No Murmurs; No JVD, RRR, No Edema Abdominal: NL Sounds; No Tenderness; No Distention, - - obese Neurological: Alert and Oriented x 3, NL Sensation, NL Muscle Strength and Tone Lines/Tubes/Other Access: Clean, Dry and Intact Peripheral IV Nutrition: Taking PO's Result Diagrams: 06/19/18 06:08 06/19/18 06:08 Microbiology and Other Data: Microbiology 06/17/18 19:34 Urine Culture - Final Urine No Growth (<1,000 CFU/mL) Assess/Plan/Problems-Billing Assessment: 33 yo male with a PMH of alcoholism, alcohilic hepatits, depression with suicidality, bipolar who was brought to the ER on 06/17 intoxicated found to be in early alcoholic withdrawal. - Patient Problems (1) Alcohol withdrawal Comment: Stable. Continues to score on WAM Cont WAM protocol and treatment with Ativan prn Monitor electrolytes and replace as needed Social work/pillowcase maker following - patient states he is not interested in rehab counseling (2) Elevated LFTs Comment: - Suspect in the setting of alcohol use - Liver enzymes trending down - repeat LFTs in am - Obtain US liver tomorrow (3) History of bipolar disorder Comment: - Restart Mirtazapine - hold Latuda and lamotrigine in the setting of transaminitis - Mood is stable. - Restart medications when LFTs have normalized (4) DVT prophylaxis Comment: - SCDs (5) Full code status Status and Disposition: switch to inpatient for alcohol intoxication/withdrawal.
[2018-06-19 06:59] LABS: EGFR Non-African American 116.7 (>60)
[2018-06-19] MEDS: Folic Acid TAB* 1 MG PO SCH (08:24)
[2018-06-19] MEDS: Thiamine TAB* 100 MG TAB PO SCH (08:24)
[2018-06-19] MEDS: NS 0.9% 1000 ML* 1,000 ML IV SCH (08:24)
[2018-06-19] MEDS: Multivitamins/Minerals TAB PO SCH (08:24)
[2018-06-19] MEDS ORDERED: Potassium Chlor TAB* 10 MEQ TAB.ER PO ONE (10:46)
[2018-06-19] MEDS ORDERED: Naltrexone TAB* 50 MG TAB PO SCH (15:00)
--- NOTE | 2018-06-19 18:05 | CONS ---
CONSULTATION REPORT: DATE OF CONSULT: 06/19/18 ATTENDING CLINICIAN: Regina Pa NP CONSULTING PHYSICIAN: Dr. Freddy Howard. REASON FOR CONSULT: Discontinuation of psychiatric medications and capacity to make informed medical decisions. SUBJECTIVE HISTORY: Psychiatry is asked to see this 33-year-old single white male with a history of profound alcoholism as well as bipolar disorder and multiple prior psychiatric hospitalizations, who was brought to the hospital via emergency medical services who were called by police after being tipp ed off by his AA sponsor that the patient was slurring his words and appeared to be incapacitated. P er the report, ambulance drivers found 3 empty bottles of vodka as well as 1-1/2 cases of beer in the sink. It was unable to be determined over what timeframe this was consumed, but Mr. Anthony was s luggish in thought and unsteady on his feet as per Dr. Raymond Street's history and physical. Late r he was admitted to the hospital for alcohol detoxification and at one point revealed to the primary team that he had recently self-discontinued his psychiatric medications including mirtazapine, luras idone and lamotrigine. Initially when I attempted to meet with the patient on 06/18/18, he was extre millicent somnolent and difficult to arouse. One day later on 06/19/18, he is now awake and alert, but ap pears to be ronda, diaphoretic and still experiencing some symptoms of alcohol withdrawal. The pat ient is somewhat defensive as I enter and I get the impression that he is not being completely forthc oming with me. He is requesting immediate discharge from the hospital saying that he has plans to at tend an opera in [place], [place]. I asked if his parents know that he is in the hospital and brenda tucker says yes, but does not give me permission to contact them, although he does give me the telephone n umber of his AA sponsor, a young man named Andrei. Andrei was contacted, but was working and said that brenda tucker would contact this provider back at a later time. At any rate, Bigg is denying suicidal ideation s and does not feel that psychiatric hospitalization would be warranted at this time. I asked him ab out the primary team's fears of his well being should they discharge him today among those risks woul d be delirium tremens or seizures from withdrawal or resumption of drinking leading to self-harm beha viors, the patient responds to this by saying "I'm 100% certain that I would not drink." Later the [facility] provider, nurse practitioner, Regina Pa enters the room and gives her reasons for why she fe els that Bigg is not safe to leave the hospital today, although it is clear that Mr. Gabrielle gonzalez rstands the treatment being offered, which in his case is detoxification protocol using lorazepam. Brenda tucker is much less unclear about the risks of refusing that treatment. PAST PSYCHIATRIC HISTORY: The patient's most recent psychiatric admission was in December of 2017 un johnny the service of Dr. Jaiml Camejo. He has had somewhere around 10 lifetime inpatient psychiatric h ospitalizations both at [facility] and [facility] as well as [facility] in [facility]. His outpatient care is currently through the [facility] where he sees psychiatrist, Sepideh Peralta and a community nurse named Fermin Leger. PREVIOUS SUICIDE HISTORY: The patient reports 1 prior suicide attempt by overdoing on lithium, which led to dialysis. This was in 2007. MEDICATIONS: Include: 1. Latuda 160 mg at bedtime. 2. Remeron 30 mg daily. 3. Lamictal 200 mg at bedtime. 4. Naltrexone 50 mg daily. 5. He also indicates that he takes an unknown dose of topiramate. FAMILY HISTORY: He denies any history of family psychiatric illness or completed suicides. SOCIAL HISTORY: The patient was born and raised in [place], [place], the younger of 2 children from parents who are still alive. His father is a practicing machine shop specialist physician in [place], [place], whereas his mother is a homemaker. He does have an older sister, who is an indepe ndent adult. The patient identifies as being heterosexual. He has dated in the past, but not recent ly. 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 MENTAL STATUS EXAM: The patient is a dark-skinned, somewhat obese white male with diaphoretic appear ance, who has minimal grooming, is dressed in a patient gown, sitting at the edge of his bed. He eloy es limited eye contact. Speech is not particularly spontaneous or informative. Mood appears to be a nxious with a somewhat constricted affect. Thought process is linear, but with some latencies. Thoug ht content is significant for his desire to be discharged from the hospital in order to attend an ope ra performance. He denies suicidal or homicidal ideations. He denies auditory or visual hallucinatio ns. Insight and judgment are limited given his insistence on leaving the hospital despite the contin ued risks for alcohol withdrawal. Cognitively, he is awake and alert, but still somewhat somnolent a nd lethargic. DIAGNOSES: As follows: [place] I: Alcohol use disorder; bipolar disorder type 1, most recent episode depressed. [place] II: Defe rred. IMPRESSION: The patient is a 33-year-old single white male with a history of profound alcoholism as well as type 1 bipolar disorder with numerous prior psychiatric inpatient hospitalizations, who was b rought to the hospital by an ambulance after his AA sponsor noted that he sounded incapacitated durnatacha roque a phone call. The patient is currently admitted to the [address] [place] [address] where he is receiving alcohol detoxification. He is insisting on discharge despite the fact that his withdrawal symptoms have not been definitively resolved. There are questions regarding resumption of his psychiatric medications while his liver enzymes appeared to be still elevated. There are further questions about whether he has the capacity to make an informed decision about leaving the hospital. RECOMMENDATIONS: Part 1: Bipolar disorder: The patient may be resumed on mirtazapine immediately; h owever, I would wait to resume his lamotrigine and Latuda doses until his liver enzymes are clearly t rending towards normal. His followup will be at [facility] with Dr. Sepideh Peralta and his therapist, Fermin Leger. Part 2: Capacity: I believe that this patient lacks capacity to leave [place]. Although he clearly unde rstands the nature of his illness as well as the treatment being offered, he demonstrates no awarenes s of what the possible risks would be for leaving the hospital prematurely. Such risks include delir ium tremens, seizure, resumption of dangerous alcohol drinking, as well as falls and possible . Psychiatry is signing off at this time, but can be reconsulted in the event that there are any signif icant changes in his presentation. [id number]/[facility] #: [id number]
[2018-06-19] MEDS ORDERED: Lurasidone(*) 120 MG TAB PO SCH (21:00)
[2018-06-19] MEDS ORDERED: Mirtazapine TAB* 15 MG PO SCH (21:00)
[2018-06-19] MEDS ORDERED: lamoTRIgine TAB(*) 100 MG PO SCH (21:00)
[2018-06-20 05:30] LABS: ABS Basophils 0 10^3/ul (0-0.2); ABS Eosinophils 0.1 10^3/ul (0-0.6); ABS Lymphocytes 1.7 10^3/ul (1.0-4.8); ABS Monocytes 0.6 10^3/ul (0-0.8); ABS Neutrophils 2.6 10^3/ul (1.5-7.7); ABS Nucleated RBC 0 10^3/ul; Eosinophil % 2.4 % (0-6); Hematocrit 40 % (42-52); Hemoglobin 13.9 g/dl (14.0-18.0); Lymphocyte % 33.9 % (25-47); Mean Corpuscular HGB Conc 35 g/dl (31-36); Mean Corpuscular Hemoglobin 30 pg (27-31); Mean Corpuscular Volume 87 fL (80-94); Mean Platelet Volume 7.8 um3 (7.4-10.4); Nucleated Red Blood Cells % 0; Platelet Count 180 10^3/ul (150-450); Red Blood Count 4.59 10^6/ul (4.00-5.40); Red Cell Distribution Width 14 % (10.5-15); White Blood Count 5.1 10^3/ul (3.5-10.8)
[2018-06-20 05:47] LABS: EGFR Non-African American 113.3 (>60)
[2018-06-20] MEDS: Omeprazole CAP* 20 MG PO SCH (06:06)
[2018-06-20 08:15] VITALS: BP 120/79
--- NOTE | 2018-06-20 11:10 | RAD ---
INDICATION: Transaminitis. COMPARISON: There are no prior studies available for comparison. TECHNIQUE: Multiple real-time images of the right upper quadrant were obtained. FINDINGS: The gallbladder appear normal. No gallstones, gallbladder wall thickening or pericholecystic fluid is present. No intra or extra hepatic ductal distention is seen. The common bile duct is not well visualized. The liver is normal in size and increased in echogenicity suggestive of fatty infiltration. No focal abnormality is seen. The pancreas is obscured by overlying bowel gas. The right kidney is normal in size without evidence for hydronephrosis. IMPRESSION: 1. NORMAL EXAMINATION OF THE GALLBLADDER. 2. THE LIVER IS DIFFUSELY INCREASED IN ECHOGENICITY. THIS IS A NONSPECIFIC FINDING ALTHOUGH SUGGESTIVE OF FATTY INFILTRATION.
[2018-06-20] MEDS: Folic Acid TAB* 1 MG PO SCH (11:40)
[2018-06-20] MEDS: Thiamine TAB* 100 MG TAB PO SCH (11:40)
[2018-06-20] MEDS: Multivitamins/Minerals TAB PO SCH (11:40)
--- NOTE | 2018-06-20 19:31 | DS ---
CC: Dr. Dali Ely; Dr. Howard; Dr. Marium Peralta, Psychiatry* DISCHARGE SUMMARY: DATE OF ADMISSION: 06/17/18 DATE OF DISCHARGE: 06/20/18 PRIMARY CARE PROVIDER: Dr. Dali Ely. PSYCHIATRIST: Dr. Sepideh Peralta. DISCHARGE DIAGNOSES: 1. Acute alcohol intoxication. 2. Toxic metabolic encephalopathy due to alcohol withdrawal. 3. Mild liver function test elevation, likely due to alcoholic hepatitis. MEDICATIONS AT DISCHARGE: Include: 1. Naltrexone 50 mg daily. 2. Folic acid 1 mg daily. 3. Remeron 30 mg daily. 4. Vitamin 100 mg daily. The patient's Latuda and lamotrigine were held and are to be restarted by either his psychiatrist or primary care provider once the patient's liver function tests are improved. LABORATORY DATA AND STUDIES PERFORMED DURING THE HOSPITAL STAY: Included: Liver ultrasound obtained on 06/20/18, impression: "Normal examination of the gallbladder. The liver is diffusely increased in echogenicity. This is a nonspecific finding, although suggestive of fatty infiltration." Brain CT obtained on 06/17/18, impression: "No acute intracranial findings or interval change." On 06/20/18, sodium of 139, potassium of 3.8, chloride 107, carbon dioxide 25, BUN 5, creatinine 0.78. Liver function tests showed total bili of 0.7, AST of 100, ALT of 125, alkaline phosphatase of 82. Alcohol level on admission was 288. HOSPITALIZATION COURSE: Bigg Anthony is a 33-year-old male with history of bipolar disease, who is also an alcoholic with history of multiple psychiatric hospitalizations as well as hospitalizations for alcohol withdrawal. On , he once again presented with alcohol level of 288 after he drank a bottle of vodka a day for several days. He apparently stopped his medications several days ago. He was admitted for alcohol withdrawal. He was treated with lorazepam on an as- needed basis. Initially, he lacked capacity to sign against medical advice, which he wanted to do. He was seen by Dr. Howard from Psychiatry, who recommended restarting the patient's mirtazapine and withholding for the time being Latuda and lamotrigine until the patient's liver function tests are improved. Unfortunately, by the time of discharge, the patient's liver function tests were still on the rise. His liver ultrasound was otherwise unremarkable and the patient likely has mild alcoholic hepatitis. By the time of discharge, the patient was alert and oriented x3. He requested to be discharged. Dr. Medina from Psychiatry was notified and agreed with the patient's discharge plan. The patient is to be discharged home with recommendation to follow up with his primary care provider as well as the patient's psychotherapist and the patient's psychiatrist, Dr. Sepideh Peralta. The patient was also placed on thiamine and folate and his mirtazapine was re- prescribed. The patient also plans to follow up with AA meetings at discharge. PHYSICAL EXAMINATION: At the time of discharge, blood pressure of 122/79, heart rate of 67 and regular, respiratory rate 20, oxygen saturation 97% on room air, temperature of 99.1. General: The patient is a very pleasant 33-year -old male, who is in no acute distress. Alert, awake, and oriented x3. HEENT: Head: Atraumatic, normocephalic. Eyes: Pupils are equal, reactive to light and accommodation. Oropharynx is clear. Mucosa moist. Neck: Supple. No JVD. No bruits bilaterally. Cardiovascular: Regular rate and rhythm. No murmur. Respiratory: Clear to auscultation bilaterally. Abdomen: Obese, soft, nontender. Bowel sounds are present in all 4 quadrants. Extremities: There is no edema. Pulses are +2 bilaterally. No clubbing or cyanosis. Neuro Evaluation : Speech is clear. Cranial nerves II through XII are grossly intact. Motor strength is 5/5 bilaterally. Please note that this is a short summary of the patient's hospitalization. Please refer to further medical records for details. TIME SPENT: Approximately 40 minutes was spent on the patient's discharge. [id number]/[facility] #: [id number] [facility]
== END 2018-06-20 14:10 | disposition home or self-care (01) | DRG 896 ==
LOC: EEVIPCON 18:17 → ED 18:17 → MED 23:27 → OBSVTOIN 06-18 09:00
PROVIDERS: ADMIT Hospitalist; ATTEND Internal Medicine
DX: F10.229 Alcohol dependence with intoxication, unspecified (principal); G92 Toxic encephalopathy; F31.30 Bipolar disorder, current episode depressed, mild or moderate severity, unspecified; F10.239 Alcohol dependence with withdrawal, unspecified; K70.10 Alcoholic hepatitis without ascites; Y90.8 Blood alcohol level of 240 mg/100 ml or more; R94.5 Abnormal results of liver function studies; F31.9 Bipolar disorder, unspecified; Z91.14 Patient's other noncompliance with medication regimen; Z79.899 Other long term (current) drug therapy
CPT/HCPCS: 36415; 70450; 76705; 80048; 80053; 80175; 80307; 80320; 80329; 81003; 81015; 82803; 83605; 83735; 84425; 84443; 85025; 87086; 99283; A9270-GY; G0480; J1200; J1630; J2060; J3411; J3475

== ENCOUNTER 2018-06-21 18:04 | Inpatient (IN) | payer OTHER ==
[2018-06-21] MEDS ORDERED: NS 0.9% 1000 ML* 1,000 ML IV ONE ×2 (18:26→19:32)
[2018-06-21] MEDS ORDERED: LORazepam INJ* 2 MG/ML 1 ML VIAL IV PUSH ONE (18:33)
--- NOTE | 2018-06-21 18:34 | ED ---
Substance Abuse/Use - HPI Summary HPI Summary: This is scribe Patricia Walker documenting for attending Samantha Buchanan MD. This patient is a 33 year old M brought in by Taj DEXTER to [facility] with multiple bruises over the arms and face. Patient speaks incomprehensibly. Patient has a history of alcoholism and bipolar disorder HPI is limited. Patient is a level 5 caveat. Vital Signs on monitor: SaO2 95% on 2L NC 127 BPM 131/88 Respiratory rate 18 I, Dr. Buchanan ,personally performed the services described in this documentation as scribed in my presence and it is both accurate and complete. - History Of Current Complaint Chief Complaint: EDSubstanceAbuse Stated Complaint: AMS Time Seen by Provider: 06/21/18 18:21 Hx Obtained From: Patient Hx From Patient Unobtainable Due To: Altered Mental Status Onset/Duration of Drug/ETOH Abuse: Years Ingestion History: Type/Name Of Drug - suspected ETOH, hx of same, odor sim to ETOH, pt unable to answer, Amount Ingested - unknown, Approximate Time Of Ingestion - unknown Overdose Characteristics: Oral Timing Of Abuse: Daily Severity Initially: Severe Severity Currently: Severe Character: Fearful, Lethargic Aggravating Factor(s): Other - unable to assess, level 5 caveat Alleviating Factor(s): Other - unable to assess, level 5 caveat Associated Signs And Symptoms: Other: - evidence of trauma to face, nose, torso and extemities Related Hx: Prior Drug Abuse Counseling/Admission - Allergies/Home Medications Allergies/Adverse Reactions: Allergies Allergy/AdvReac Type Severity Reaction Status Date / Time No Known Allergies Allergy Verified 12/12/17 16:30 PMH/Surg Hx/FS Hx/Imm Hx Previously Healthy: No Endocrine/Hematology History: Denies: Hx Anticoagulant Therapy, Hx Diabetes, Hx Thyroid Disease Cardiovascular History: Denies: Hx Hypertension, Hx Pacemaker/ICD Respiratory History: Denies: Hx Asthma, Hx Chronic Obstructive Pulmonary Disease (COPD) History: Reports: Hx Acute Renal Failure Denies: Hx Renal Disease Sensory History: Denies: Hx Contacts or Glasses, Hx Hearing Aid Opthamlomology History: Denies: Hx Contacts or Glasses Neurological History: Denies: Hx Dementia, Hx Seizures Psychiatric History: Reports: Hx Anxiety, Hx Depression, Hx Inpatient Treatment , Hx Community Mental Health Tx, Hx Bipolar Disorder - Type 1, Hx Suicide Attempt, Hx of Violent Episodes Against Others - PT denies hx of violence against others, Hx Substance Abuse - alcohol Denies: Hx Attention Deficit Hyperactivity Disorder, Hx Eating Disorder, Hx Panic Disorder, Hx Post Traumatic Stress Disorder, Hx Schizophrenia, Other Psychiatric Issues/Disorders - Surgical History Surgery Procedure, Year, and Place: unobtainable, even from prior charts, level 5 caveat - Immunization History Date of Tetanus Vaccine: UTD Date of Influenza Vaccine: UTD Infectious Disease History: Unable to Obtain/Confirm Infectious Disease History: Denies: Hx Clostridium Difficile, Hx Hepatitis, Hx Human Immunodeficiency Virus (HIV), Hx Shingles, Hx Tuberculosis, Traveled Outside the [place] in Last 30 Days - Family History Known Family History: Positive: Other - alcoholism - Social History Alcohol Use: Daily Alcohol Amount: binges Hx Substance Use: No Substance Use Type: Reports: None Hx Tobacco Use: No Smoking Status (MU): Never Smoked Tobacco Amount Used/How Often: Pt has not used any tobacco products in the last 30 days Have You Smoked in the Last Year: No Review of Systems All Other Systems Reviewed And Are Negative: No - Comments Additional Review of Systems Comments: ROS is limited. Patient is level 5 caveat. Physical Exam - Summary Physical Exam Summary: Appearance: ill-appearing, unable to assess pain distress, well-nourished, signs of trauma to face and extremities, mutters incomprehensible sounds Skin: Warm, color reflects adequate perfusion, dry, multiple bruises on face R forearm neck nose, Head: multiple ecchymosis Eyes: Conjunctiva clear, PERRL, EOMI, no nystagmus ENT: nasal bone deformity, no septal hematoma, no epistaxis, ecchymosis to nose Neck: Supple, no nodes, no JVD, ecchymoses Respiratory: Lungs clear, normal breath sounds, no respiratory distress Cardio: Tachycardic, regular rhythm, No murmur, pulses normal, brisk capillary refill Abdomen: Soft, nontender, non-distended, no masses, no guarding, no rebound Bowel sounds: Present Musculoskeletal: Strength Intact/ROM intact, no calf tenderness, no edema. Ecchymosis ventral surface right forearm 11cm Psychological: minimally verbal, reaches to touch me Neuro:Eyes open, nonverbal except incomprehensible sounds, muscle tone normal, no focal deficit, moves all extremities well GCS 12 Triage Information Reviewed: Yes Vital Signs On Initial Exam: Initial Vitals Temp Pulse Resp BP Pulse Ox 98.6 F 113 12 131/88 87 06/21/18 18:10 06/21/18 18:10 06/21/18 18:10 06/21/18 18:10 06/21/18 18:10 Vital Signs Reviewed: Yes - [place] Coma Scale Best Eye Response: 4 - Spontaneous Best Motor Response: 6 - Obeys Commands Best Verbal Response: 2 - Incomprehensible Words Coma Scale Total: 12 Diagnostics - Vital Signs Vital Signs Temp Pulse Resp BP Pulse Ox 06/21/18 18:14 115 28 93 06/21/18 18:11 114 16 131/88 93 06/21/18 18:10 98.6 F 113 12 131/88 87 - Laboratory Result Diagrams: 06/21/18 19:03 06/21/18 19:03 Lab Statement: Any lab studies that have been ordered have been reviewed, and results considered in the medical decision making process. - EKG 1832 Cardiac Rate: Tachycardia - 123 EKG Rhythm: Sinus Tachycardia ST Segment: Non-Specific - ST-T changes Ectopy: None EKG Interpretation: nml AV, prolonged IVCT (118) nonspecific, nml QTc, no acute changes EKG Comparison: No Significant Change - compared with 04/16/17 Re-Evaluation - Re-Evaluation First Eval Re-Evaluation Time: 19:00 Change: Unchanged Comment: at sign out with Dr. Quevedo. Eyes partly open, open more to voice. Moves all extremities. Course/Dx - Course Course Of Treatment: 33 year old M brought in by Taj DEXTER to [facility] with multiple bruises over the arms and face. Patient speaks incomprehensibly. Patient has a history of alcoholism and bipolar disorder. Patient has bruises over his arms and face. GCS of 12. Patient is given Ativan adn IV fluids, prior to imaging. Patient is tachycardic. A Brain CT, C-spine CT, maxillofacial CT and CTA chest abd pelvis and lab work is ordered. Patient in placed on constant observation and will be signed out to Dr. Quevedo with labs and CT's pending. - Diagnoses Differential Diagnosis/HQI/PQRI: Positive: Alcohol Abuse Provider Diagnoses: Altered mental status, Traumatic abnormalities Discharge - Sign-Out/Discharge Documenting (check all that apply): Sign-Out Patient Signing out patient TO: Wili Quevedo - 06/21/18, 1900, labs, CT pending - Discharge Plan Referrals: Dali Ely MD [Primary Care Provider] -
[2018-06-21 19:13] LABS: Urine Appearance Clear; Urine Blood 2+ (Negative); Urine Color Yellow; Urine Ketones Negative (Negative); Urine Protein Negative (Negative); Urine Red Blood Cell Trace(0-2/hpf) (Absent); Urine Specific Gravity 1.003 (1.010-1.030); Urine Urobilinogen Negative (Negative); Urine White Blood Cell Trace(0-5/hpf) (Absent)
[2018-06-21 19:14] LABS: ABS Basophils 0 10^3/ul (0-0.2); ABS Eosinophils 0 10^3/ul (0-0.6); ABS Monocytes 1.2 10^3/ul (0-0.8); ABS Neutrophils 6.3 10^3/ul (1.5-7.7); ABS Nucleated RBC 0 10^3/ul; Eosinophil % 0.1 % (0-6); Hematocrit 45 % (42-52); Hemoglobin 15.8 g/dl (14.0-18.0); Lymphocyte % 21.3 % (25-47); Mean Corpuscular HGB Conc 35 g/dl (31-36); Mean Corpuscular Hemoglobin 30 pg (27-31); Mean Corpuscular Volume 87 fL (80-94); Mean Platelet Volume 7.6 um3 (7.4-10.4); Nucleated Red Blood Cells % 0; Platelet Count 208 10^3/ul (150-450); Red Cell Distribution Width 15 % (10.5-15); White Blood Count 9.6 10^3/ul (3.5-10.8)
[2018-06-21 19:19] LABS: INR 1.01 (0.77-1.02)
[2018-06-21 19:31] LABS: EGFR Non-African American 83.1 (>60)
[2018-06-21] MEDS ORDERED: Thiamine IV* 100 MG, Folic Acid IV* 1 MG, Multiple Vitamin IV ADULT* 10 ML in NS 0.9% 1... IV ONE (19:32)
[2018-06-21] MEDS ORDERED: Iodixanol* (CONTRAST) 320 MG/ML 100 ML SDV IV ONE (19:37)
[2018-06-21] MEDS ORDERED: Midazolam* 1 MG/ML 5 ML VIAL (5 MG) ONE (19:42)
--- NOTE | 2018-06-21 20:09 | RAD ---
INDICATION: Trauma, altered mental status. COMPARISON: Comparison is made with a prior CT of the brain from June 17, 2018. TECHNIQUE: Contiguous axial sections of the brain were obtained from the skull base to the vertex without contrast. FINDINGS: The ventricles, cisterns and sulci are within normal limits. No significant focal abnormality or mass effect is seen. There is no evidence for hemorrhage. No fracture is seen. There is a nodular density in the right maxillary sinus measuring 2 cm in size which is unchanged from the prior study most consistent with a mucous retention cyst or polyp. The visualized portion of the paranasal sinuses and mastoid air cells otherwise appear clear. IMPRESSION: NO EVIDENCE FOR ACUTE INTRACRANIAL ABNORMALITY.
[2018-06-21] MEDS ORDERED: Haloperidol INJ IV/IM* 5 MG/ML AMP IM ONE (20:29)
--- NOTE | 2018-06-21 20:29 | ED ---
Progress - Progress Note Progress Note: Patient is signed out from Dr. Buchanan, awaiting imaging, etoh metabolism, and disposition. - Results/Orders Results/Orders: A Brain CT reveals, as per radiologist: NO EVIDENCE FOR ACUTE INTRACRANIAL ABNORMALITY. A Maxillofacial CT reveals, as per radiologist: No traumatic facial abnormalities. A Chest/Abdomen/Pelvis CT with contrast reveals, as per radiologist: No traumatic thoracic abnormalities. No abdominal or pelvic abnormalities. A C-Spine CT reveals, as per radiologist: No cervical spine traumatic abnormalities. ED Physician has reviewed these reports. Re-Evaluation - Re-Evaluation First Eval Re-Evaluation Time: 19:00 Change: Unchanged Comment: at sign out with Dr. Quevedo. Eyes partly open, open more to voice. Moves all extremities. Course/Dx - Course Course Of Treatment: 33 y/o M with hisotry of bipolar disorder and alcoholism presents with multiple bruises over his face and arms. Patient is signed out from Dr. Buchanan awaiting imaging and disposition. A Brain CT reveals, as per radiologist: NO EVIDENCE FOR ACUTE INTRACRANIAL ABNORMALITY. A Maxillofacial CT reveals, as per radiologist: No traumatic facial abnormalities. A Chest/ Abdomen/Pelvis CT with contrast reveals, as per radiologist: No traumatic thoracic abnormalities. No abdominal or pelvic abnormalities. A C-Spine CT reveals, as per radiologist: No cervical spine traumatic abnormalities. Patient is under constant observation while in ED. Patient's father arrives in ED. Lab work reveals a lactic acid of 4.2 and a serum alcohol of 395. Patient will be admitted patient and father are informed of admission. - Provider Notifications Discussed Care Of Patient With: Kate Daniel - hospitalist Time Discussed With Above Provider: 21:50 Instructed by Provider To: Admit As Inpatient Discharge - Sign-Out/Discharge Documenting (check all that apply): Patient Departure - admit - Discharge Plan Disposition: ADMITTED TO [facility] Referrals: Dali Ely MD [Primary Care Provider] -
[2018-06-21] MEDS ORDERED: Midazolam* 1 MG/ML 5 ML VIAL (5 MG) SLOW PUSH ONE (20:59)
[2018-06-21] MEDS ORDERED: Diazepam SYRINGE* 5 MG/ML 2 ML SYRINGE (10 MG total) IV ONE (21:19)
[2018-06-21] MEDS ORDERED: KCL 10 MEQ/50 ML IVPREMIX* 10 MEQ/50 ML BAG IV ONE ×2 (21:58→23:50)
[2018-06-21] MEDS ORDERED: Diazepam INJ (NF) 5 MG/ML 10 ML VIAL (50 MG TOTAL) IV ONE (22:00)
[2018-06-21] MEDS ORDERED: Ondansetron INJ* 2 MG/ML VIAL IV PRN (22:21)
[2018-06-21] MEDS ORDERED: Acetaminophen TAB* 325 MG PO PRN (22:24)
[2018-06-21] MEDS ORDERED: NS 0.9% 1000 ML* 1,000 ML IV SCH (22:30)
--- NOTE | 2018-06-22 01:39 | HP ---
CC: Dr. Dali Ely* HISTORY AND PHYSICAL: DATE OF ADMISSION: 06/21/18 PRIMARY CARE PHYSICIAN: Dr. Dali Ely. TIME OF EVALUATION: 2199. CHIEF COMPLAINT: Altered mental status. HISTORY OF PRESENT ILLNESS: This is a 33-year-old male with a past medical history of alcohol abuse, bipolar disorder with mental health disorder, who was just discharged from the hospital on 06/20/18 for acute alcohol intoxication and encephalopathy due to alcohol withdrawal, who presented to the emergency room this evening, brought in by the police department, being found altered. The patient is nonverbal. Report is obtained by the emergency room staff documentation. The patient was brought in by EMS for altered mental status. He was nonverbal and not following commands and noted to have multiple scattered bruises. Per police report, the patient was called by a house carpenter and became concerned after hearing a thud. On my encounter, the patient is trying to verbalize, but unable to do so, not able to follow commands or answer any questions appropriately, thus unable to obtain review of systems. In the emergency room, the patient had labs, imaging, was given 5 mg of Valium, 5 mg of Dilaudid, 2 mg of Ativan, 5 mg of Versed, 2 L of fluid and a banana bag and referred to the hospitalist service for further evaluation. PAST MEDICAL HISTORY: Based on prior report: 1. History of alcoholism. 2. History of alcoholic hepatitis. 3. History of depression with suicidality. 4. Bipolar disorder. 5. Medication nonadherence. MEDICATIONS: The patient was discharged home on 06/20/18 with: 1. Naltrexone 50 mg daily. 2. Folic acid 1 mg daily. 3. Remeron 30 mg daily. 4. Thiamine 100 mg daily. ALLERGIES: No known drug allergies. FAMILY HISTORY: Per psych report, no history of family psychiatric illness. SOCIAL HISTORY: Unknown. Has a history of alcohol abuse. REVIEW OF SYSTEMS: Unable to obtain due to the patient's altered mental status. PHYSICAL EXAMINATION GENERAL: The patient is somnolent, but with intermittent restless periods. Unable to verbalize. Unable to follow any commands. Is moving all extremities. VITAL SIGNS: Temp 98.6, pulse rate 122, respiratory rate 19, oxygen saturation is 94%, blood pressure is 104/40. HEENT: Head: Normocephalic. Pupils are dilated and reactive. Anicteric and equal. Oropharynx: Mucous membranes are dry. NECK: Supple. No lymphadenopathy. RESPIRATORY: Diminished breath sounds. No wheezes, rhonchi, or rales. CARDIAC: Tachycardia. Soft systolic murmur heard throughout. ABDOMEN: Hypoactive bowel sounds. Soft, nontender, nondistended. EXTREMITIES: No clubbing, cyanosis, or edema. +1 DPs. NEUROLOGIC: As mentioned, the patient is disoriented, nonverbal, not able to follow commands. Moving all extremities. SKIN: The patient has scattered ecchymosis and abrasions on his forehead and his upper and lower extremities. LABORATORY DATA: White count 9.6, hemoglobin 15.8, hematocrit 45, platelets 208. Sodium 146, potassium 3.3, chloride 106. Anion gap 18. BUN 8, creatinine 1.02. Bicarb 22. Glucose 118. Lactic acid 4.2. AST 209, ALT 293. Urine tox screen is negative except his serum alcohol is 395. RADIOGRAPHIC DATA: A CT of cervical spine without contrast shows no spine traumatic abnormalities. CT of chest with IV contrast is negative. CT of the abdomen, no abdominal or pelvic traumatic abnormalities. CT of the maxillofacial without IV contrast, no facial traumatic abnormalities. Head CT, no evidence for acute intracranial abnormality. EKG shows sinus tachycardia, QTc of 437 with rate of 123. Forearm x-ray unremarkable. Follow up with official read. ASSESSMENT AND PLAN: This is a 33-year-old male with past medical history of alcohol abuse, bipolar disorder, who was just discharged after having acute alcohol intoxication, presents to the emergency room after being found unresponsive by the police, continues to be unresponsive. 1. Altered mental status. Assessment: Concern for acute alcohol intoxication , also concern for other possibilities of toxic ingestion. His EKG is unremarkable. His blood work does show potassium is slightly low. It has been repleted in the emergency room. We are following up on the magnesium. There is also concern that maybe the patient was down as his CK is elevated as well. Concern for rhabdomyolysis. It is unclear how long he was acutely altered for. Plan: We will admit him to telemetry, continue IV fluids, follow up on his magnesium. We will repeat a lactic this evening, repeat his CK in the morning, continue aggressive IV fluid hydration. Continue on a WA protocol with neurologic checks and one-to-one observation for him. Follow up with social work. Consider psychiatric evaluation once he is more alert. He may need further investigation for his altered mental status if it continues. Will also check an ammonia level. 2. Elevated LFTs. Assessment: The patient was with transaminitis on his prior admission likely in the setting of his alcoholic hepatitis. I suspect it is exacerbated by further alcohol use. We will repeat his LFTs in the morning. We will add on a hepatitis panel. He had an ultrasound on his last admission that showed diffusely increased in echogenicity, nonspecific finding. CHRONIC MEDICAL PROBLEMS: 1. The patient going to remain n.p.o. While he is altered, we will hold his p.o. medications for now and we will order a bedside swallow test once he becomes more oriented and alert. 2. FEN. Aggressive fluid hydration, n.p.o. 3. DVT prophylaxis. He scores moderate risk. Place him on heparin subcutaneous. 4. Code status. Full code. 5. Other disposition concern. The patient needs to clarify who his healthcare proxy is. He does have living parents that would default to them. PATIENT TIME: Greater than 35 minutes were spent doing the history and physical , more than half the time was spent in direct patient contact. [id number]/CPS #: [id number] ESTHELA
[2018-06-22 06:38] LABS: ABS Basophils 0 10^3/ul (0-0.2); ABS Eosinophils 0.1 10^3/ul (0-0.6); ABS Lymphocytes 2.1 10^3/ul (1.0-4.8); ABS Monocytes 0.7 10^3/ul (0-0.8); ABS Neutrophils 4.1 10^3/ul (1.5-7.7); ABS Nucleated RBC 0 10^3/ul; Eosinophil % 0.7 % (0-6); Hematocrit 41 % (42-52); Hemoglobin 14.3 g/dl (14.0-18.0); Lymphocyte % 30.2 % (25-47); Mean Corpuscular HGB Conc 35 g/dl (31-36); Mean Corpuscular Hemoglobin 30 pg (27-31); Mean Corpuscular Volume 87 fL (80-94); Mean Platelet Volume 7.6 um3 (7.4-10.4); Nucleated Red Blood Cells % 0; Platelet Count 174 10^3/ul (150-450); Red Blood Count 4.71 10^6/ul (4.00-5.40); Red Cell Distribution Width 15 % (10.5-15); White Blood Count 7.1 10^3/ul (3.5-10.8)
[2018-06-22] MEDS: Heparin VIAL(*) 5000 UNITS/ML VIAL (FIVE THOUSAND) SUBCUT SCH ×3 (06:44→22:12)
[2018-06-22 06:46] LABS: EGFR Non-African American 105.4 (>60)
--- NOTE | 2018-06-22 07:07 | RAD ---
INDICATION: Trauma, altered mental status. COMPARISON: There are no prior studies available for comparison. TECHNIQUE: Contiguous axial sections of the axial images of the facial bones were obtained and reconstructed in the coronal and sagittal planes. There is motion artifact limiting the study. FINDINGS: Soft tissue swelling is noted anterior to the right orbit and over the nasal region. The galvin of the orbits and maxillary sinuses appear intact. The zygomatic arches appear intact. There is no evidence for a fracture of the mandible. The nasal bones appear intact. There is moderate to severe deviation of the nasal septum toward the left side. The pterygoid plates appear intact. There are bilateral mucous retention cyst within the maxillary sinuses measuring up to 2 cm in size. The ethmoid, frontal and sphenoid sinuses appear clear. The mastoid air cells appear clear. IMPRESSION: NO EVIDENCE OF FRACTURE.
--- NOTE | 2018-06-22 07:13 | RAD ---
INDICATION: Trauma. COMPARISON: Comparison is made with a prior study from April 19, 2017. TECHNIQUE: Contiguous axial sections were obtained from the skull base through the C7 vertebra. Images were reconstructed in the sagittal and coronal planes. The exam is slightly limited due to motion artifact. FINDINGS: The vertebra are in normal alignment. No prevertebral soft tissue swelling or fracture is seen. There is mild degenerative disc disease at the C6-C7 level. No significant spinal canal or neural foraminal narrowing is seen at any level. The lung apices appear clear. IMPRESSION: NO EVIDENCE FOR FRACTURE OR SUBLUXATION.
--- NOTE | 2018-06-22 07:35 | RAD ---
INDICATION: Trauma. COMPARISON: There are no prior studies available for comparison. TECHNIQUE: A CT scan of the chest, abdomen and pelvis was performed with intravenous and without oral contrast following intravenous injection of 130 ml of Visipaque 320 nonionic contrast. Contiguous axial sections were obtained from the lung apices through the symphysis pubis. Images were reconstructed in the coronal and sagittal planes. The exam is limited due to motion artifact. FINDINGS: The lungs are underinflated. There are dependent bilateral lower lobe infiltrates most consistent with atelectasis. No pleural effusion or pneumothorax is seen. No significant enlarged mediastinal or hilar lymph nodes are seen. The heart is within normal limits in size. No pericardial effusion is present. The thoracic aorta is normal in caliber and demonstrates homogeneous contrast opacification. Evaluation of the liver and spleen are limited due to motion and beam hardening artifact. The liver and spleen are normal in size. The liver is decreased in attenuation consistent with fatty infiltration. No significant focal hepatic or splenic abnormality is seen. No calcified gallstones are noted. The pancreas appears to be within normal limits. The kidneys and adrenal glands are normal in size. There is no evidence for hydronephrosis. The urinary bladder is normal in contour. No focal bladder wall thickening is seen. The prostate gland is not enlarged. The aorta is normal in caliber and demonstrates homogeneous contrast opacification. No significant enlarged retroperitoneal lymph nodes are seen. The stomach, small and large bowel appear nondistended. The appendix appears normal. There is mild descending and sigmoid diverticulosis without evidence for diverticulitis. There is a small periumbilical hernia containing fat. No free intraperitoneal air or fluid is seen. No significant focal osseous abnormality is seen. IMPRESSION: 1. NO EVIDENCE FOR ACUTE TRAUMATIC INJURY. 2. HEPATIC STEATOSIS.
[2018-06-22] MEDS: LORazepam INJ* 2 MG/ML 1 ML VIAL IV PUSH SCH ×4 (07:45→14:12)
--- NOTE | 2018-06-22 07:57 | RAD ---
HISTORY: altered mental status COMPARISONS: April 19, 2017 VIEWS: 1: frontal portable view of the chest at 9:40 PM FINDINGS: Evaluation is limited by the phase of respiration. LINES AND TUBES: None. CARDIOMEDIASTINAL SILHOUETTE: The cardiomediastinal silhouette is normal for portable technique. PLEURA: The costophrenic angles are sharp. No pleural abnormalities are noted. LUNG PARENCHYMA: The lung volumes are low. The lungs are clear for the phase of respiration. ABDOMEN: The upper abdomen is clear. There is no subphrenic gas. BONES AND SOFT TISSUES: No bone or soft tissue abnormalities are noted. IMPRESSION: LIMITED STUDY. LOW LUNG VOLUMES. NO ACTIVE CARDIOPULMONARY DISEASE. R1
--- NOTE | 2018-06-22 07:58 | RAD ---
Indication: RIGHT forearm bruising following injury. Comparison: No relevant prior exams available on the [facility] for comparison. Technique: AP and lateral views RIGHT radius and ulna. Report: Dorsal soft tissue edema. Negative for subcutaneous emphysema or conspicuous foreign body. Negative for fracture or malalignment. Small triceps insertion enthesophyte at the olecranon process. IMPRESSION: #. Dorsal soft tissue swelling. #. Negative for fracture.
[2018-06-22] MEDS: Multivitamins/Minerals TAB PO SCH (09:10)
[2018-06-22] MEDS: Thiamine TAB* 100 MG TAB PO SCH (09:10)
[2018-06-22] MEDS: Folic Acid TAB* 1 MG PO SCH (09:10)
[2018-06-22] MEDS: NS 0.9% 1000 ML* 1,000 ML IV SCH ×2 (09:36→21:59)
--- NOTE | 2018-06-22 14:46 | PN ---
Subjective Date of Service: 06/22/18 Interval History: Pt stated that after d/c on 06/20/18 he drank "a lot". Doesn't remember what happened after. Does not recall falling Objective Active Medications: Acetaminophen (Tylenol Tab*) 650 mg PO Q4H PRN PRN Reason: PAIN Folic Acid (Folvite Tab*) 1 mg PO DAILY [facility] Last Admin: 06/22/18 09:10 Dose: Not Given Heparin Sodium (Porcine) (Heparin Vial(*)) 5,000 units SUBCUT Q8HR [facility] Last Admin: 06/22/18 13:39 Dose: 5,000 units Sodium Chloride (Ns 0.9% 1000 Ml*) 1,000 mls @ 200 mls/hr IV PER RATE [facility] Last Admin: 06/22/18 09:36 Dose: 200 mls/hr Lorazepam (Ativan Inj*) 0 - [address] .[address] [facility] PROTOCOL [facility]; Protocol Last Admin: 06/22/18 14:12 Dose: 2 mg Multivitamins/Minerals (Theragran/Minerals Tab*) 1 tab PO DAILY [facility] Last Admin: 06/22/18 09:10 Dose: Not Given Ondansetron HCl (Zofran Inj*) 4 mg IV Q4H PRN PRN Reason: NAUSEA/VOMITING Thiamine HCl (Vitamin B-1 Tab*) 100 mg PO DAILY [facility] Last Admin: 06/22/18 09:10 Dose: Not Given Vital Signs - 8 hr 06/22/18 06/22/18 06/22/18 07:30 07:35 07:45 Temperature 98.3 F Pulse Rate 77 Respiratory 24 24 24 Rate Blood Pressure 126/70 (mmHg) O2 Sat by Pulse 95 Oximetry 06/22/18 06/22/18 06/22/18 08:00 09:09 10:33 Temperature 97.4 F Pulse Rate 99 Respiratory 24 22 24 Rate Blood Pressure 156/75 (mmHg) O2 Sat by Pulse 94 Oximetry 06/22/18 06/22/18 06/22/18 10:39 11:44 12:00 Temperature Pulse Rate Respiratory 24 22 24 Rate Blood Pressure (mmHg) O2 Sat by Pulse Oximetry 06/22/18 06/22/18 06/22/18 12:22 12:28 13:17 Temperature Pulse Rate 94 Respiratory 24 24 22 Rate Blood Pressure 132/82 (mmHg) O2 Sat by Pulse 95 Oximetry 06/22/18 06/22/18 14:00 14:12 Temperature Pulse Rate Respiratory 24 24 Rate Blood Pressure (mmHg) O2 Sat by Pulse Oximetry Oxygen Devices in Use Now: None Appearance: 33 yo M in nAD, aAOx3 Eyes: No Scleral Icterus, PERRLA Ears/Nose/Mouth/Throat: NL Teeth, Lips, Gums, Mucous Membranes Moist Neck: NL Appearance and Movements; NL JVP, Trachea Midline Respiratory: Symmetrical Chest Expansion and Respiratory Effort, Clear to Auscultation Cardiovascular: NL Sounds; No Murmurs; No JVD Abdominal: NL Sounds; No Tenderness; No Distention Lymphatic: No Cervical Adenopathy Extremities: No Edema, No Clubbing, Cyanosis Skin: No Nodules or Sclerosis, - - multiple bruises/abrasions on face, ecchymoses on b/l UE's Neurological: NL Muscle Strength and Tone Result Diagrams: 06/22/18 06:10 06/22/18 06:10 Assess/Plan/Problems-Billing Assessment: 33 yo male with a PMH of alcoholism, alcoholic hepatits, depression with suicidality, bipolar who was brought to the ER on 06/21 intoxicated , lethargic, after d/c for ETOH withdrawal on 06/20/18 from [facility] [place] - Patient Problems (1) Alcohol withdrawal Comment: - Continue WAM protocol with PRN lorazepam, folate, MVI, thiamine. - / eval, plan for inpatient psychiatric admission. (2) Elevated LFTs Comment: Due to alcoholic hepatitis (3) History of bipolar disorder Comment: - Restart Mirtazapine - hold Latuda and lamotrigine in the setting of transaminitis - Mood is stable. - Restart medications when LFTs have normalized (4) Rhabdomyolysis Comment: it appears that pt had fallen when intoxicated Pt doesn't recall cont IVF (5) DVT prophylaxis Comment: - SCDs
[2018-06-22] MEDS: Mirtazapine TAB* 15 MG PO SCH (22:12)
[2018-06-23] MEDS: NS 0.9% 1000 ML* 1,000 ML IV SCH ×4 (04:10→18:20)
[2018-06-23] MEDS: Heparin VIAL(*) 5000 UNITS/ML VIAL (FIVE THOUSAND) SUBCUT SCH ×3 (05:45→21:39)
[2018-06-23 07:04] LABS: ABS Basophils 0 10^3/ul (0-0.2); ABS Eosinophils 0.2 10^3/ul (0-0.6); ABS Lymphocytes 1.5 10^3/ul (1.0-4.8); ABS Monocytes 0.5 10^3/ul (0-0.8); ABS Neutrophils 2.7 10^3/ul (1.5-7.7); ABS Nucleated RBC 0 10^3/ul; Eosinophil % 3.9 % (0-6); Hematocrit 37 % (42-52); Lymphocyte % 30.5 % (25-47); Mean Corpuscular HGB Conc 35 g/dl (31-36); Mean Corpuscular Hemoglobin 30 pg (27-31); Mean Corpuscular Volume 86 fL (80-94); Mean Platelet Volume 7.6 um3 (7.4-10.4); Nucleated Red Blood Cells % 0.1; Platelet Count 129 10^3/ul (150-450); Red Blood Count 4.28 10^6/ul (4.00-5.40); Red Cell Distribution Width 15 % (10.5-15)
[2018-06-23 07:24] LABS: EGFR Non-African American 126.3 (>60)
[2018-06-23] MEDS: Thiamine TAB* 100 MG TAB PO SCH (08:50)
[2018-06-23] MEDS: Folic Acid TAB* 1 MG PO SCH (08:50)
[2018-06-23] MEDS: Multivitamins/Minerals TAB PO SCH (08:51)
--- NOTE | 2018-06-23 12:57 | PN ---
Subjective Date of Service: 06/23/18 Interval History: Pt is still weak and tremulous, but was able to go to bathroom with assist. denies pain. Objective Active Medications: Acetaminophen (Tylenol Tab*) 650 mg PO Q4H PRN PRN Reason: PAIN Folic Acid (Folvite Tab*) 1 mg PO DAILY [facility] Last Admin: 06/23/18 08:50 Dose: 1 mg Heparin Sodium (Porcine) (Heparin Vial(*)) 5,000 units SUBCUT Q8HR [facility] Last Admin: 06/23/18 05:45 Dose: 5,000 units Sodium Chloride (Ns 0.9% 1000 Ml*) 1,000 mls @ 125 mls/hr IV PER RATE [facility] Last Admin: 06/23/18 10:18 Dose: 125 mls/hr Lorazepam (Ativan Inj*) 0 - 3 mg IV PUSH .PER [facility] PROTOCOL [facility]; Protocol Last Admin: 06/22/18 14:12 Dose: 2 mg Mirtazapine (Remeron Tab*) 30 mg PO BEDTIME [facility] Last Admin: 06/22/18 22:12 Dose: 30 mg Multivitamins/Minerals (Theragran/Minerals Tab*) 1 tab PO DAILY [facility] Last Admin: 06/23/18 08:51 Dose: 1 tab Ondansetron HCl (Zofran Inj*) 4 mg IV Q4H PRN PRN Reason: NAUSEA/VOMITING Thiamine HCl (Vitamin B-1 Tab*) 100 mg PO DAILY [facility] Last Admin: 06/23/18 08:50 Dose: 100 mg Vital Signs - 8 hr 06/23/18 06/23/18 06/23/18 06:29 07:22 07:26 Temperature 97.9 F Pulse Rate 44 47 Respiratory 16 20 20 Rate Blood Pressure 119/70 123/58 (mmHg) O2 Sat by Pulse 100 100 Oximetry 06/23/18 06/23/18 06/23/18 10:00 10:04 12:00 Temperature Pulse Rate 45 Respiratory 18 18 18 Rate Blood Pressure 130/79 (mmHg) O2 Sat by Pulse 96 Oximetry 06/23/18 12:13 Temperature 98.6 F Pulse Rate 50 Respiratory 18 Rate Blood Pressure 125/54 (mmHg) O2 Sat by Pulse 97 Oximetry Oxygen Devices in Use Now: None Appearance: 33 yo M in nAD, aAOx3 Eyes: No Scleral Icterus, PERRLA Ears/Nose/Mouth/Throat: NL Teeth, Lips, Gums, Mucous Membranes Moist Neck: NL Appearance and Movements; NL JVP, Trachea Midline Respiratory: Symmetrical Chest Expansion and Respiratory Effort, Clear to Auscultation Cardiovascular: NL Sounds; No Murmurs; No JVD, RRR Abdominal: NL Sounds; No Tenderness; No Distention Lymphatic: No Cervical Adenopathy Extremities: No Edema, No Clubbing, Cyanosis Skin: No Nodules or Sclerosis, - - multiple bruises and abrasions on face and extremities Neurological: Alert and Oriented x 3, NL Muscle Strength and Tone, - - tremor in b/l UE's noted Result Diagrams: 06/23/18 06:50 06/23/18 06:50 Microbiology and Other Data: Microbiology 06/21/18 18:46 Urine Culture - Final Urine No Growth (<1,000 CFU/mL) Assess/Plan/Problems-Billing Assessment: 33 yo male with a PMH of alcoholism, alcoholic hepatits, depression with suicidality, bipolar who was brought to the ER on 06/21 intoxicated , lethargic, after d/c for [place]TOH withdrawal [place] 06/20/18 [place] [facility] Patient Problems (1) Alcohol withdrawal Comment: - Continue WAM protocol with PRN lorazepam, folate, MVI, thiamine. - / eval, plan for inpatient psychiatric admission. (2) Elevated LFTs Comment: Due to alcoholic hepatitis (3) History of bipolar disorder Comment: - Restart Mirtazapine - hold Latuda and lamotrigine in the setting of transaminitis - Mood is stable. - Restart medications when LFTs have normalized (4) Rhabdomyolysis Comment: it appears that pt had fallen when intoxicated Pt doesn't recall cont IVF (5) DVT prophylaxis Comment: - SCDs Status and Disposition: inpatient
--- NOTE | 2018-06-23 16:17 | CONSULT ---
Identification - Patient Identification Reason for Psychiatric Consultation: Incapacitating Symptoms -: Patient is a 33 year old, M admitted on 06/21/18. - MHU Identification Employment Status: Employed Hx Psychiatric Hospitalization: Yes History - Objective HPI: Please see consultation report dictated on Friday, June 19 for full history. Bigg arrived back at the hospital shortly after his discharge over the weekend, again intoxicated and again showing deficits in insight and judgment secondary to co-occurring substance abuse and mental illness. He is defiant today insisting that he was not unsafe and does not warrant further hospitalization. When asked for an alternative safety plan, he can only respond "Go to AA meetings." He denies SI or HI but shows clear impairment in decision making. Exam Appearance: Well Developed/Nourished Hygiene: Normal Grooming: Disheveled Psychomotor Activities: Abnormal-Decreased Exhibits Abnormal Movement: No Attitude and Relatedness: Dismissive Eye Contact: Fair - Speech Quality: Unpressured Latencies: Normal Quantity: Terse Patient's Decription of Mood: "Okay" Observed Affect: Constricted Affect Consistent with: Dysphoria Patient's Thought Process: Coherent Thought Content: No Passive Wish, No Suicidal Planning, No Homicidal Ideation, No Paranoid Ideation Experiencing Hallucinations: No, Sensorium is Clear Type of Hallucinations: Visual: No, Auditory: No, Command: No Level of Consciousness: Alert Orientation: Yes Intact, Yes Orientated to Time, Yes Orientated to Place, Yes Orientated to Person Impulse Control: Poor Insight and Judgement: Impaired Impression - Impression Clinical Impression: 33 y.o. single, white male with a history of alcoholism, type I bipolar disorder with prominent depressive episodes and multiple previous psychiatric [place] at both [facility] [place] [facility] who is readmitted to the hospitalist service for alcohol detoxification less than 48 hours after his most recent discharge for similar presentation. Inpatient DSM-V Dx: F10.24 Merits Inpatient Hospitalization: Yes Problem List - MHU Problems Type of Problem: Impulse Control Status of Problem: Active Plan - Treatment Plan Treatment Plan: At this point I think Bigg's condition warrants involuntary 9.39 hospitalization on the BSU. Pending medical clearance we will accept him for transfer. Recommend continued hold of lamotrigine and lurasidone until liver enzymes normalize. Psychiatry will continue to follow until transfer of care. Continued Medication Management: Continue Outpt Medication Medications: Current Medications Acetaminophen (Tylenol Tab*) 650 mg PO Q4H PRN PRN Reason: PAIN Folic Acid (Folvite Tab*) 1 mg PO DAILY [facility] Last Admin: 06/23/18 08:50 Dose: 1 mg Heparin Sodium (Porcine) (Heparin Vial(*)) 5,000 units SUBCUT Q8HR [facility] Last Admin: 06/23/18 14:02 Dose: 5,000 units Sodium Chloride (Ns 0.9% 1000 Ml*) 1,000 mls @ 125 mls/hr IV PER RATE [facility] Last Admin: 06/23/18 10:18 Dose: 125 mls/hr Lorazepam (Ativan Inj*) 0 - [address] .PER [facility] PROTOCOL [facility]; Protocol Last Admin: 06/22/18 14:12 Dose: 2 mg Mirtazapine (Remeron Tab*) 30 mg PO BEDTIME [facility] Last Admin: 06/22/18 22:12 Dose: 30 mg Multivitamins/Minerals (Theragran/Minerals Tab*) 1 tab PO DAILY [facility] Last Admin: 06/23/18 08:51 Dose: 1 tab Ondansetron HCl (Zofran Inj*) 4 mg IV Q4H PRN PRN Reason: NAUSEA/VOMITING Thiamine HCl (Vitamin B-1 Tab*) 100 mg PO DAILY [facility] Last Admin: 06/23/18 08:50 Dose: 100 mg - Discharge Plan Discharge Plan: Inpatient Hospitalization
[2018-06-23] MEDS ORDERED: LORazepam TAB(*) 0.5 MG PO PRN (19:13)
[2018-06-23] MEDS: Mirtazapine TAB* 15 MG PO SCH (21:39)
[2018-06-24] MEDS: NS 0.9% 1000 ML* 1,000 ML IV SCH (02:02)
[2018-06-24] MEDS: Heparin VIAL(*) 5000 UNITS/ML VIAL (FIVE THOUSAND) SUBCUT SCH ×2 (05:32→14:48)
[2018-06-24] MEDS ORDERED: Magnesium Sulfate 2 GM IV* 2 GM/50 ML BAG IVPB ONE (08:44)
[2018-06-24] MEDS ORDERED: Magnesium Oxide TAB* 400 MG PO SCH (09:00)
[2018-06-24] MEDS: Folic Acid TAB* 1 MG PO SCH (09:20)
[2018-06-24] MEDS: Multivitamins/Minerals TAB PO SCH (09:20)
[2018-06-24] MEDS: Thiamine TAB* 100 MG TAB PO SCH (09:20)
--- NOTE | 2018-06-24 14:37 | CONSULT ---
Identification - Patient Identification Reason for Psychiatric Consultation: Incapacitating Symptoms -: Patient is a 33 year old, M admitted on 06/21/18. - MHU Identification Employment Status: Employed Hx Psychiatric Hospitalization: Yes History - Objective HPI: Bigg is now medically cleared for transfer to the behavioral health unit. He is not happy about this and retains his lack of judgment and insight with respect to the dangerousness of his alcohol consumption. We cannot rule out that his over-intoxication was purposeful with the intent to end his own life, although he denies this. He makes a point of telling me that he is still gainfully employed by [employer] and has to be to work this week, which we are preventing him from doing. He denies SI or HI. Exam Appearance: Well Developed/Nourished Hygiene: Normal Grooming: Disheveled Psychomotor Activities: Abnormal-Decreased Exhibits Abnormal Movement: No Attitude and Relatedness: Dismissive Eye Contact: Fair - Speech Quality: Unpressured Latencies: Normal Quantity: Terse Patient's Decription of Mood: "Okay" Observed Affect: Constricted Affect Consistent with: Dysphoria Patient's Thought Process: Coherent Thought Content: No Passive Wish, No Suicidal Planning, No Homicidal Ideation, No Paranoid Ideation Experiencing Hallucinations: No, Sensorium is Clear Type of Hallucinations: Visual: No, Auditory: No, Command: No Level of Consciousness: Alert Orientation: Yes Intact, Yes Orientated to Time, Yes Orientated to Place, Yes Orientated to Person Impulse Control: Poor Insight and Judgement: Impaired Impression - Impression Clinical Impression: 33 y.o. single, white male with a history of alcoholism, type I bipolar disorder with prominent depressive episodes and multiple previous psychiatric admissions at both [facility] and [facility] who is readmitted to the hospitalist service for alcohol detoxification less than 48 hours after his most recent discharge for similar presentation. Inpatient DSM-V Dx: F10.24 Merits Inpatient Hospitalization: Yes Problem List - MHU Problems Type of Problem: Attitude and Relatedness Status of Problem: Active Plan - Treatment Plan Treatment Plan: At this point I think Bigg's condition warrants involuntary 9.39 hospitalization on the BSU. We will accept him for transfer. Recommend continued hold of lamotrigine and lurasidone until liver enzymes normalize. Psychiatry will assume care. Continued Medication Management: Continue Outpt Medication Medications: Current Medications Acetaminophen (Tylenol Tab*) 650 mg PO Q4H PRN PRN Reason: PAIN Folic Acid (Folvite Tab*) 1 mg PO DAILY COUNTS INCLUDE 234 BEDS AT THE [facility] Last Admin: 06/24/18 09:20 Dose: 1 mg Heparin Sodium (Porcine) (Heparin Vial(*)) 5,000 units SUBCUT Q8HR COUNTS INCLUDE 234 BEDS AT THE [facility] Last Admin: 06/24/18 05:32 Dose: 5,000 units Sodium Chloride (Ns 0.9% 1000 Ml*) 1,000 mls @ 125 mls/hr IV PER RATE COUNTS INCLUDE 234 BEDS AT THE [facility] Last Admin: 06/24/18 02:02 Dose: 125 mls/hr Lorazepam (Ativan Inj*) 0 - 3 mg IV PUSH .PER [facility] PROTOCOL COUNTS INCLUDE 234 BEDS AT THE [facility]; Protocol Last Admin: 06/22/18 14:12 Dose: 2 mg Lorazepam (Ativan Tab(*)) 0.5 mg PO Q4H PRN PRN Reason: ANXIETY Last Admin: 06/23/18 19:28 Dose: 0.5 mg Magnesium Oxide (Magox 400 Tab*) 800 mg PO DAILY COUNTS INCLUDE 234 BEDS AT THE [facility] Last Admin: 06/24/18 09:20 Dose: 800 mg Mirtazapine (Remeron Tab*) 30 mg PO BEDTIME COUNTS INCLUDE 234 BEDS AT THE [facility] Last Admin: 06/23/18 21:39 Dose: 30 mg Multivitamins/Minerals (Theragran/Minerals Tab*) 1 tab PO DAILY COUNTS INCLUDE 234 BEDS AT THE [facility] Last Admin: 06/24/18 09:20 Dose: 1 tab Ondansetron HCl (Zofran Inj*) 4 mg IV Q4H PRN PRN Reason: NAUSEA/VOMITING Thiamine HCl (Vitamin B-1 Tab*) 100 mg PO DAILY COUNTS INCLUDE 234 BEDS AT THE [facility] Last Admin: 06/24/18 09:20 Dose: 100 mg - Discharge Plan Discharge Plan: Inpatient Hospitalization
[2018-06-24 15:31] VITALS: BP 139/84
--- NOTE | 2018-06-25 02:54 | TRS ---
CC: Dr. Ely; Dr. Howard, Psychiatry* TRANSFER SUMMARY: DATE OF ADMISSION: 06/21/18 DATE OF DISCHARGE/TRANSFER: To our mental health unit at [facility] , 06/24/18. PRIMARY CARE PROVIDER: Dr. Ely. DISCHARGE DIAGNOSES: 1. Alcohol intoxication. 2. Rhabdomyolysis due to trauma and presumed fall. 3. Hypomagnesemia. SECONDARY DIAGNOSES: 1. History of alcohol dependence and multiple psychiatric hospital stays. 2. History of bipolar disorder. MEDICATIONS AT DISCHARGE: Include: 1. Remeron 30 mg daily at night. 2. Folvite 1 mg daily. 3. Ativan 0.5 mg every 4 hours p.r.n. anxiety. 4. Mag-Ox 800 mg daily. 5. Multivitamin 1 tablet daily. 6. Vitamin B1 of 100 mg daily. LABORATORY DATA AND STUDIES PERFORMED DURING THE HOSPITAL STAY: Included: On 06/23/18, white blood cell count of 5.0, hemoglobin of 13.0, hematocrit of 37 , and platelets of 129. On 06/24/18, sodium of 139, potassium 3.6, chloride 104, carbon dioxide 28, BUN 7, creatinine 0.77. Magnesium was 1.7. The patient's total CPK level was 912. The patient's liver function tests were AST of 97 and ALT of 173 reported on 06/23/18. Serum alcohol level at admission was 395. Acute hepatitis level obtained on 06/22/[address] chest, abdomen and pelvis obtained on 06/21/18, impression: "No evidence for acute traumatic injury. Hepatic steatosis." C-spine CT obtained on 06/21/18, impression: "No evidence for fracture or subluxation." Brain CT obtained on 06/21/18 showed "no evidence for acute intracranial abnormality." Maxillofacial CT was also unremarkable at admission. Forearm x-ray on the right, impression: "Dorsal soft tissue swelling. Negative for fracture." Portable chest x-ray obtained also at admission showed "limited study with low lung volumes." HOSPITALIZATION COURSE: Bigg Anthony is a 33-year-old male, alcoholic, known to us from multiple previous admissions. In fact, he was discharged from our facility on 06/20/18 after alcohol withdrawal and mental health evaluation and came back on 06/21/18 very intoxicated, barely responsive, with multiple bruises on his face and his bilateral arms. There was a suspicion that the patient fell at home. He came in and was treated with Ativan protocol for withdrawal. He was also noted to be in rhabdomyolysis, likely posttraumatic and post fall, judging from his injuries, with a total CPK level at admission of 4500. By the time of transfer to mental health unit, his CPK level was down to 912. He was evaluated by Dr. Howard and deemed to be in need of involuntary admission to mental health unit for further evaluation of his substance-induced disorder. At discharge, the patient is recommended to drink plenty of fluids and be on regular diet. PHYSICAL EXAMINATION AT THE TIME OF DISCHARGE: Blood pressure of 127/72, heart rate of 65 and regular, respiratory rate 20, oxygen saturation 96% on room air, temperature 98.2. General: The patient is a pleasant 33-year-old male, who is in no acute distress. Alert, awake, and oriented x3. HEENT: Head with multiple bruises on his face and abrasions. Eyes: Extraocular muscles are intact. Pupils are equal, reactive to light and accommodation. Oropharynx is clear. Mucosa moist. Neck: Supple. No JVD. No bruits bilaterally. Cardiovascular: Regular rate and rhythm. No murmur. Respiratory: Clear to auscultation bilaterally. Abdomen: Obese, soft, nontender. Bowel sounds are present in all 4 quadrants. Extremities: There is no edema. Pulses are +2 bilaterally. No clubbing or cyanosis. On evaluation of the skin, the patient has multiple abrasions and bruises on bilateral upper extremities, right more than left as well as his face and legs. Psychiatric Evaluation: Oriented x3 with no evidence of anxiety or depression. On neuro evaluation, the patient still has fine tremors in bilateral upper extremities. Otherwise, neurologically he is intact. DISPOSITION: The patient is being transferred to mental health unit for further treatment. Please note that this is a short summary of the patient's hospitalization. Please refer to further medical records for details. TIME SPENT: Approximately 35 minutes was spent on the patient's discharge. [id number]/[facility]PS #: [id number] MTDD
== END 2018-06-24 18:00 | DRG 896 ==
LOC: ED 18:04 → MEDTELE 22:21
PROVIDERS: ADMIT Pediatrics; ATTEND Internal Medicine
DX: F10.24 Alcohol dependence with alcohol-induced mood disorder (principal); R40.2222 Coma scale, best verbal response, incomprehensible words, at arrival to emergency department; G93.40 Encephalopathy, unspecified; F31.9 Bipolar disorder, unspecified; F10.239 Alcohol dependence with withdrawal, unspecified; S00.83XA Contusion of other part of head, initial encounter; S40.022A Contusion of left upper arm, initial encounter; S40.021A Contusion of right upper arm, initial encounter; F32.9 Major depressive disorder, single episode, unspecified; F41.9 Anxiety disorder, unspecified; Z81.1 Family history of alcohol abuse and dependence; S50.11XA Contusion of right forearm, initial encounter; S00.33XA Contusion of nose, initial encounter; S10.93XA Contusion of unspecified part of neck, initial encounter; R40.2362 Coma scale, best motor response, obeys commands, at arrival to emergency department; R40.2142 Coma scale, eyes open, spontaneous, at arrival to emergency department; R00.0 Tachycardia, unspecified; F10.229 Alcohol dependence with intoxication, unspecified; S00.81XA Abrasion of other part of head, initial encounter; R94.5 Abnormal results of liver function studies; E83.42 Hypomagnesemia; T79.6XXA Traumatic ischemia of muscle, initial encounter; W19.XXXA Unspecified fall, initial encounter; Y92.009 Unspecified place in unspecified non-institutional (private) residence as the place of occurrence of the external cause; K70.10 Alcoholic hepatitis without ascites
CPT/HCPCS: 36415; 70450; 70486; 71045; 71260; 72125; 74177; 80048; 80053; 80074; 80307; 80320; 81003; 81015; 82140; 82150; 82550; 83605; 83690; 83735; 84484; 85025; 85610; 86850; 86900; 86901; 87086; 93005; 99284; A9270-GY; G0480; J1630; J1644; J2060; J2250; J3360; J3411; J3475; J3480; Q9967

== ENCOUNTER 2018-06-24 15:36 | Inpatient (IN) | payer OTHER ==
[2018-06-24] MEDS ORDERED: Al Hydrox/Mg Hydrox/Simet LIQ* 30 ML UDC PO PRN (16:14)
[2018-06-24] MEDS: Mirtazapine TAB* 15 MG PO SCH (20:41)
[2018-06-25] MEDS: Vitamin THERAPEUTIC TAB PO SCH (09:07)
[2018-06-25] MEDS: Thiamine TAB* 100 MG TAB PO SCH (09:07)
--- NOTE | 2018-06-25 11:47 | PN ---
MHU: Group Therapy Note - Service Type Service Type: 25283 Group Psychotherapy - Cognitive Behavioral Group Therapy ( CBT):Patient was attentive and participatory in CBT programming this morning, and remained in good behavioral control. Patient expressed positive insights regarding relevant treatment interventions and goals.
--- NOTE | 2018-06-25 16:16 | PN ---
MHU: Group Therapy Note - Service Type Service Type: 43641 Group Psychotherapy - Medication Education Group: Patient attended group and presented with flat affect that did not vary with discussion. Although responsive to direct prompts to respond to questions, patient did not engage in spontaneous conversation.
--- NOTE | 2018-06-25 16:19 | HP ---
PSYCHIATRIC HISTORY AND PHYSICAL: DATE OF ADMISSION: 06/24/18. JUSTIFICATION FOR ADMISSION: The patient is in need of 24-hour supervision and care due to extremely concerning over utilization of alcohol, which is thought to be suicidal in nature. He is unsafe to be treated in the less restricted setting. CHIEF COMPLAINT: "I don't know why they brought me here. I consider this punishment for drinking." HISTORY OF PRESENT ILLNESS: The patient is a 33-year-old single white male with a history of alcohol ism, type I bipolar disorder with prominent depressive episodes and multiple previous psychiatric adm issions at both [facility] and [facility], who was readmitted to the hospitalist service fo r alcohol detoxification less than 48 hours after his most recent discharge for similar presentation. While on the hospitalist service, it was determined that he would benefit from involuntary treatmen t on the BSU and he has just been transferred to my care here on . Initially, I evaluated him on 06/19/18. At that time, per report ambulance drivers responded to a tip from his AA spon sor that he was inebriated and physically incapacitated. When they arrived in his apartment, they di scovered 3 empty bottles of vodka, as well as [id number] cases of beer in the sink. It was unabl e to be determined over what timeframe this was consumed and Mr. Anthony was sluggish in thought an d unsteady on his feet. When I was evaluating him that Friday, he was insisting on discharge, but I did not feel that he had the capacity to leave the hospital against medical advice and his detoxifica tion has not been complete. One day later on the 06/20/18, he was discharged to home. However, withi n 24 hours, he returned to the emergency room as someone within his group of friends and family had t alked to him on the phone and he sounded similarly intoxicated. When he was brought to the emergency room the second time, he had several contusions on his face following a fall. His blood alcohol con tent was in the 400s and he was readmitted for detoxification. At this time, I cannot rule out that these alcohol intoxification represent purposeful self harm, perhaps even suicidal intentions. The p atient denies this, but has very limited insight and judgment, wanting only to go home so that he can return to his job at [employer]. We did not feel that he was safe and so the hospitalist signed at 09: 39, which I have validated at this time. Symptomatically, he is minimizing all behaviors including d epression, but does indicate that his anxiety was bad, which led to resumption in drinking approximat jolly 1 month ago. PAST PSYCHIATRIC HISTORY: The patient's most recent psychiatric admission was in December 2017 under the service of Dr. Jamil Camejo. He has had somewhere around 10 lifetime inpatient psychiatric hosp italizations both at [facility] and [facility] as well as [facility] in [facility]. His outpatient care is currently through the [facility] where he see s the psychiatrist, Sepideh Peralta as well as community nurse, Fermin Leger. The patient does report 1 p rior suicide attempt by overdosing on lithium, which led to dialysis. This was in 2007. CURRENT MEDICATIONS: Include: 1. Latuda 160 mg at bedtime. 2. Remeron 30 mg at bedtime. 3. Lamictal 200 mg at bedtime. 4. Naltrexone 50 mg at bedtime. 5. Topamax 75 mg p.o. b.i.d. FAMILY HISTORY: He denies any history of family psychiatric illness or completed suicide. SOCIAL HISTORY: The patient was born and raised in [place], [place], the younger of two children fr om parents, who are still alive. His father is a practising vessel specialist, physician in [place], [place], whereas his mother is a day care home mother. He does have an older sister, who is an i ndependent adult. The patient identifies as being heterosexual. He has dated in the past, but not r ecently. 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 He is involved in AA and has been to several rehabs in the past. REVIEW OF SYSTEMS: The patient denies headache or double vision. He denies abdominal pain, nausea, vomiting, diarrhea or constipation. He denies sore throat, cough, chest pain, difficulty breathing. He denies difficulty ambulating, enlarged lymph nodes, fevers, rashes or changes in weight. PHYSICAL EXAMINATION VITAL SIGNS: Blood pressure 126/82, heart rate 85, respiratory rate 16, temperature is 96.8 degrees Fahrenheit, oxygen saturations are 100% on room air. HEENT: Head is normocephalic and atraumatic. NECK: Supple. CHEST: Clear to auscultation bilaterally. CARDIAC: Exam reveals normal heart sounds. ABDOMEN: Soft and nontender. MUSCULOSKELETAL: Exam reveals a full range of motion with no sign of edema in all 4 extremities. NEUROLOGICALLY: He is grossly intact with no focal deficits. SKIN: Warm and dry with some black and blue contusions around his bilateral orbits. LABORATORY DATA: Complete metabolic testing was performed revealing hemoglobin A1c of 5.4, triglyce rides 132, cholesterol 199, LDL cholesterol 113, HDL cholesterol of 59.7. MENTAL STATUS EXAMINATION: The patient is a dark-skinned, somewhat obese white male, with diaphoreti c appearance, who has somewhat minimal grooming. He is dressed in street clothing and sitting at the edge of his bed. He makes somewhat limited eye contact. Speech is spontaneous with a slow rate and low tones. Mood appears to be anxious with a somewhat constricted affect. Thought process is linea r, but with some latencies. Thought content is significant for his desire to be discharged from the hospital. He denies suicidal or homicidal ideations. He denies auditory or visual hallucinations. Insight and judgment are limited given his insistence on leaving the hospital despite continued sever e alcohol problems and lack of self care. Cognitively, he is awake and alert, but still somewhat let hargic. DIAGNOSES: As follows: Cypress I: Alcohol use disorder, bipolar disorder, type 1, most recent episode depressed. Cypress II: Def erred. IMPRESSION: The patient is a 33-year-old single white male, with a history of profound alcoholism as well as type 1 bipolar disorder with numerous prior psychiatric inpatient hospitalizations, who has now gone through 2 successive inpatient medical hospitalizations for alcohol detoxification, who does not appear to be able to maintain his own safety in the community. The patient will be transferred from [address] [place] [address] [address] [place] [address] [facility]al Science Unit where he will receive further treatment. PLAN: The patient is admitted to the Adult Behavioral Health Unit where he is placed on q.15-minute checks for his own safety. I have discontinued the AM protocol given the fact that he is safely de toxified on the medical service. I do see that his liver enzymes are still elevated and I will reche ck these in the morning. Pending normalization of his liver functions, we will likely be resuming al l outpatient psychotropic medications including topiramate and naltrexone, which we are using to redu ce alcohol cravings. We are strongly encouraging the patient to consider inpatient substance abuse r ehab, but he is declining this at this time. We will try to reach out to his family and care provider s in the community for further social support and to get collateral information. While he is here, richard tucker is certainly encouraged to avail himself of all group and milieu activities including individual an d group psychotherapies. [id number]/[facility] #: [id number]
[2018-06-25] MEDS: Mirtazapine TAB* 15 MG PO SCH (20:47)
[2018-06-26 07:40] LABS: EGFR Non-African American 90.2 (>60)
[2018-06-26] MEDS: Thiamine TAB* 100 MG TAB PO SCH (08:31)
[2018-06-26] MEDS: Vitamin THERAPEUTIC TAB PO SCH (08:31)
--- NOTE | 2018-06-26 11:37 | PN ---
MHU: Group Therapy Note - Service Type Service Type: 24054 Group Psychotherapy - Cognitive Behavioral Group Therapy ( CBT):Patient was attentive and participatory in CBT programming this morning, and remained in good behavioral control. Patient expressed positive insights regarding relevant treatment interventions and goals.
--- NOTE | 2018-06-26 12:21 | PN ---
Subjective - Subjective Date of Service: 06/26/18 Service Type: 25350 Hosp care 15 min low complexity Subjective: Bigg remains anxious and not particularly insightful about his recurrent, severe abuse of alcohol. He continues to deny SI or HI and feels he needs to be discharged today in order to return to work at [employer]. He is informed that , as of this morning, his liver enzymes remain too elevated to warrant resumption of lurasidone and his other psychotropic medications. He is observed talking to his AA sponsor, Andrei, for support. He is refusing referral for inpatient or outpatient SA treatment. Objective - Appearance Appearance: Obese Dysmorphic Features: No Hygiene: Normal Grooming: Fairly Well Kept - Behavior Psychomotor Activities: Normal Exhibits Abnormal Movement: No - Attitude and Relatedness Attitude and Relatedness: Dismissive Eye Contact: Fair - Speech Quality: Unpressured Latencies: Normal Quantity: Terse - Mood Patient's Decription of Mood: "Okay" - Affect Observed Affect: Constricted Affect Consistent with: Dysphoria - Thought Process Patient's Thought Process: Coherent Thought Content: No Passive Wish, No Suicidal Planning, No Homicidal Ideation, No Paranoid Ideation - Sensorium Experiencing Hallucinations: No, Sensorium is Clear Type of Hallucinations: Visual: No, Auditory: No, Command: No - Level of Consciousness Level of Consciousness: Alert Orientation: Yes Intact, Yes Orientated to Time, Yes Orientated to Place, Yes Orientated to Person - Impulse Control Impulse Control: Tenuous - Insight and Judgement Insight and Judgement: Fair - Group Participation Particating in Group Activities: Yes - Medication Management Medication Management Adherence: Yes Assessment - Assessment Merits Inpatient Hospitalization: For Immediate Safety, For Stabilization Inpatient DSM-V Dx: F10.24 Clinical Impression: 33 y.o. single, white male with a history of alcoholism, type I bipolar disorder with prominent depressive episodes and multiple previous psychiatric admissions at both [facility] and [facility], who is transferred from the hospitalist service following his second medical admission for alcohol detoxification in one week. It is speculated that the overuse of alcohol represents purposeful self-harm, as he admits to both severe depression and anxiety. Plan - Plan Treatment Plan: Name: BIGG OSMAN JR Birthdate: 1985 [id number] The patients mirtazapine has been resumed at 30mg PO qhs, however, his lamotrigine and lurasidone are being temporarily held because his liver enzymes remain elevated, although trending downwards. He refuses inpatient or outpatient substance abuse referrals and his insight is not good. He warrants continued inpatient-level services. Continued Medication Management: Continue Outpt Medication Medications: Current Medications Al Hydrox/Mg Hydrox/Simethicone (Maalox Plus*) 30 ml PO Q4H PRN PRN Reason: INDIGESTION Mirtazapine (Remeron Tab*) 30 mg PO BEDTIME COUNTS INCLUDE 234 BEDS AT THE [facility] Last Admin: 06/25/18 20:47 Dose: 30 mg Multivitamins (Theragran Tab*) 1 tab PO DAILY [facility] Last Admin: 06/26/18 08:31 Dose: 1 tab Thiamine HCl (Vitamin B-1 Tab*) 100 mg PO DAILY COUNTS INCLUDE 234 BEDS AT THE [facility] Last Admin: 06/26/18 08:31 Dose: 100 mg - Discharge Plan Discharge Plan: Inpatient Hospitalization Lab Results - Lab Results Lab Results: 06/25/18 06/25/18 06/26/18 06:48 06:48 07:05 Sodium 141 Potassium 3.8 Chloride 105 Carbon Dioxide 29 Anion Gap 7 BUN 14 Creatinine 0.95 Est GFR ( Amer) 109.2 Est GFR (Non-Af Amer) 90.2 BUN/Creatinine Ratio 14.7 Glucose 102 H Hemoglobin A1c 5.4 Calcium 9.2 Total Bilirubin 0.50 AST 158 H ALT 248 H Alkaline Phosphatase 86 Total Protein 6.3 L Albumin 3.8 Globulin 2.5 Albumin/Globulin Ratio 1.5 Triglycerides 132 Cholesterol 199 LDL Cholesterol 113 HDL Cholesterol 59.7
[2018-06-26] MEDS: Mirtazapine TAB* 15 MG PO SCH (20:35)
[2018-06-27] MEDS: Vitamin THERAPEUTIC TAB PO SCH (08:50)
[2018-06-27] MEDS: Thiamine TAB* 100 MG TAB PO SCH (08:50)
[2018-06-27] MEDS: Mirtazapine TAB* 15 MG PO SCH (20:18)
[2018-06-28] MEDS: Thiamine TAB* 100 MG TAB PO SCH (09:07)
[2018-06-28] MEDS: Vitamin THERAPEUTIC TAB PO SCH (09:08)
--- NOTE | 2018-06-28 19:08 | PN ---
Subjective - Subjective Subjective: Eder reports "feeling much better," with euthymic mood, manageable anxiety, absence of suicidal ideation or alcohol withdrawal symptoms. He maintains his opposition to substance abuse program after discharge. Per staff, he has been seclusive to his room. Objective - Appearance Appearance: Obese Dysmorphic Features: No Hygiene: Normal Grooming: Well Kept - Behavior Psychomotor Activities: Normal Exhibits Abnormal Movement: No - Attitude and Relatedness Attitude and Relatedness: Guarded Eye Contact: Poor - Speech Quality: Unpressured Latencies: Normal Quantity: Terse - Mood Patient's Decription of Mood: "Okay" - Affect Observed Affect: Constricted Affect Consistent with: Dysphoria - Thought Process Patient's Thought Process: Coherent, Goal Directed Thought Content: No Passive Wish, No Suicidal Planning, No Homicidal Ideation, No Paranoid Ideation - Sensorium Experiencing Hallucinations: No, Sensorium is Clear - Level of Consciousness Level of Consciousness: Alert Orientation: Yes Intact - Impulse Control Impulse Control: Intact - Insight and Judgement Insight and Judgement: Poor - Group Participation Particating in Group Activities: No - Medication Management Medication Management Adherence: Yes Assessment - Assessment Merits Inpatient Hospitalization: Consolidate Improvements, For Discharge Planning Inpatient DSM-V Dx: F10.24 Clinical Impression: Has progressed well trough alcohol detox but continues to be poorly insightful and to refuse substance abuse treatment. Plan - Plan Treatment Plan: Name: ALFA OSMAN JR Birthdate: 1985 [id number] Medications: Current Medications Al Hydrox/Mg Hydrox/Simethicone (Maalox Plus*) 30 ml PO Q4H PRN PRN Reason: INDIGESTION Mirtazapine (Remeron Tab*) 30 mg PO BEDTIME [facility] Last Admin: 06/27/18 20:18 Dose: 30 mg Multivitamins (Theragran Tab*) 1 tab PO DAILY [facility] Last Admin: 06/28/18 09:08 Dose: 1 tab Thiamine HCl (Vitamin B-1 Tab*) 100 mg PO DAILY [facility] Last Admin: 06/28/18 09:07 Dose: 100 mg - Discharge Plan Discharge Plan: Drug/Alcohol Rehab Outpatient Program: D
[2018-06-28] MEDS: Mirtazapine TAB* 15 MG PO SCH (20:27)
[2018-06-29] MEDS: Vitamin THERAPEUTIC TAB PO SCH (08:57)
[2018-06-29] MEDS: Thiamine TAB* 100 MG TAB PO SCH (08:57)
--- NOTE | 2018-06-29 11:46 | PN ---
MHU: Group Therapy Note - Service Type Service Type: 53969 Group Psychotherapy - Cognitive Behavioral Group Therapy ( CBT):Patient attended CBT programming this morning and presented with flat affect that did not vary with discussion. Although responsive to direct prompts to respond to questions, patient did not engage in spontaneous conversation.
--- NOTE | 2018-06-29 13:07 | PN ---
Subjective - Subjective Date of Service: 06/29/18 Service Type: 31559 Hosp care 15 min low complexity Subjective: Aneudy presents as euthymic and cooperative, although he is disappointed that he is not being discharged today. He had a good visit with his parents over the weekend. I spoke with his father, Bigg Zamudio, who reports that they found numerous bottles of OTC weight lifting supplement, including a full bottle of the estrogen marysol, Tamoxifen. This can be used by anabolic steroid abusers, although they didn't find any of these in the apartment. The patient continues to strongly deny SI and wants to follow up with AA in the community after discharge. Objective - Appearance Appearance: Well Developed/Nourished Dysmorphic Features: No Hygiene: Normal Grooming: Well Kept - Behavior Psychomotor Activities: Normal Exhibits Abnormal Movement: No - Attitude and Relatedness Attitude and Relatedness: Cooperative Eye Contact: Fair - Speech Quality: Unpressured Latencies: Normal Quantity: Appropriate - Mood Patient's Decription of Mood: "Okay" - Affect Observed Affect: Fair Affect Consistent with: Euthymia - Thought Process Patient's Thought Process: Coherent Thought Content: No Passive Wish, No Suicidal Planning, No Homicidal Ideation, No Paranoid Ideation - Sensorium Experiencing Hallucinations: No, Sensorium is Clear Type of Hallucinations: Visual: No, Auditory: No, Command: No - Level of Consciousness Level of Consciousness: Alert Orientation: Yes Intact, Yes Orientated to Time, Yes Orientated to Place, Yes Orientated to Person - Impulse Control Impulse Control: Tenuous - Insight and Judgement Insight and Judgement: Fair - Group Participation Particating in Group Activities: Yes - Medication Management Medication Management Adherence: Yes Assessment - Assessment Merits Inpatient Hospitalization: Consolidate Improvements, Pending Safe DC Plan Inpatient DSM-V Dx: F10.24 Clinical Impression: 33 y.o. single, white male with a history of alcoholism, type I bipolar disorder with prominent depressive episodes and multiple previous psychiatric [place] [facility] [place] [facility], who is transferred from the hospitalist service following his second medical admission for alcohol detoxification in one week. It is speculated that the overuse of alcohol represents purposeful self-harm, as he admits to both severe depression and anxiety. Plan - Plan Treatment Plan: Name: BIGG DZJOSEFINA FUNEZ Birthdate: 1985 [id number] The patients mirtazapine has been resumed at 30mg PO qhs, however, his lamotrigine and lurasidone are being temporarily held because his liver enzymes remain elevated, even after the weekend. We'll redraw a CMP in the AM. He refuses inpatient or outpatient substance abuse referrals and his insight is not good. He warrants continued inpatient-level services. Continued Medication Management: Different Medication Medications: Current Medications Al Hydrox/Mg Hydrox/Simethicone (Maalox Plus*) 30 ml PO Q4H PRN PRN Reason: INDIGESTION Mirtazapine (Remeron Tab*) 30 mg PO BEDTIME [facility] Last Admin: 06/28/18 20:27 Dose: 30 mg Multivitamins (Theragran Tab*) 1 tab PO DAILY [facility] Last Admin: 06/29/18 08:57 Dose: 1 tab Thiamine HCl (Vitamin B-1 Tab*) 100 mg PO DAILY [facility] Last Admin: 06/29/18 08:57 Dose: 100 mg - Discharge Plan Discharge Plan: Inpatient Hospitalization Lab Results - Lab Results Lab Results: 06/29/18 08:01 Sodium 139 Potassium 4.0 Chloride 104 Carbon Dioxide 27 Anion Gap 8 BUN 15 Creatinine 0.98 Est GFR ( Amer) 105.3 Est GFR (Non-Af Amer) 87.0 BUN/Creatinine Ratio 15.3 Glucose 99 Calcium 9.8 Total Bilirubin 0.60 AST 169 H ALT 419 H Alkaline Phosphatase 85 Total Protein 7.1 Albumin 4.3 Globulin 2.8 Albumin/Globulin Ratio 1.5
[2018-06-29] MEDS: Mirtazapine TAB* 15 MG PO SCH (20:00)
--- NOTE | 2018-06-29 20:28 | CONS ---
CONSULTATION NOTE: DATE OF CONSULT: 06/29/18 REASON FOR CONSULT: Elevated LFTs. HISTORY OF PRESENT ILLNESS: The patient is a 33-year-old gentleman with history of alcoholism, type 1 bipolar disorder, and mild hypercholesterolemia, not on any medications, who was admitted initially to the hospitalist service on 06/21/18 for altered mental status, thought to be due to acute alcohol intoxication. After being medically stabilized, he was then admitted to the psychiatric facility on 06/24/18 to the [facility] and he has been otherwise medically stable; however, I have been called by Dr. Howard today given his elevated LFTs, which were mildly elevated from the previous one done when he was hospitalized. PAST MEDICAL HISTORY: Hypercholesterolemia, alcohol abuse. The patient also has had around 10 lifetime inpatient psychiatric hospitalizations at [facility] [place] and [facility] as well as [facility] in [facility], type 1 bipolar disorder, prominent depressive episodes with multiple previous psychiatric admissions. ALLERGIES: NKDA. FAMILY HISTORY: He denies any family history of psychiatric illness nor completed suicide; hypercholesterolemia, his mom; diabetes, his dad. SOCIAL HISTORY: He denies any history of smoking, IV drug use. He does have a history of alcohol abuse. He usually drinks about 3 quarters of 1 L vodka and his last alcoholic beverage drink was 1 week ago. REVIEW OF SYSTEMS: The patient denied any recent headaches, dizziness, fevers, chills, nausea, vomiting, chest pain, shortness of breath, increased cough, sputum production, abdominal pain, diarrhea, constipation, pain and/or increased frequency in urination, myalgias, arthralgias, throat pain, or new skin lesions. The rest of the 14-point review of systems is otherwise unremarkable. PHYSICAL EXAMINATION: Shows the most recent vital signs of record with blood pressure of 119/76, 75 beats per minute heart rate, 18 per minute respiratory rate, saturating at 98% on room air, temperature of 97.9 degrees Fahrenheit. General Appearance: The patient is awake, alert, and oriented x3, not in acute distress. HEENT: Normocephalic, atraumatic. PERRLA. Extraocular muscles intact. Negative for icterus. Moist oral mucosa. Negative throat erythema. Neck is soft, supple with no cervical lymphadenopathy, no JVD. Heart: S1, S2 within normal limits. Regular rate and rhythm. No murmurs, rubs, or gallops. Chest: Clear to auscultation bilaterally. Good air entry. No wheezes, rales, or rhonchi. Abdomen is soft, nondistended, nontender. Normoactive bowel sounds x4 quadrants. Extremities: No cyanosis, clubbing, or edema. Psychiatric : No active psychosis, depression, suicidal or homicidal ideation. Skin is warm to touch. DIAGNOSTIC STUDIES/LAB DATA: Most recent and pertinent laboratories show sodium and potassium levels were normal, BUN and creatinine were normal. Total bilirubin is normal at 0.60, AST of 169, and ALT of 419 and subsequent serologies done on 06/22/18 show hep A IgM, HBs antigen, HBc IgM, and hep C antibody were all nonreactive. A CT of the chest, abdomen, and pelvis done shows hepatic steatosis with no evidence of acute traumatic injury and a liver ultrasound done on 06/20/18 shows once again fatty infiltration of the liver with increasing its echogenicity with normal examination of the gallbladder. ASSESSMENT AND PLAN: As follows: Elevated LFTs. 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 In addition to his alcoholism, he is also slightly obese, which again also contributes to hepatic steatosis. Unfortunately, there are no proven therapies for hepatic steatosis other than possible vitamin E supplementations and this is not recommended across the board as a standard of care and hence, at this point, I will continue to closely observe his liver function tests and he should have liver function tests repeat in about 6 weeks and/or if he becomes symptomatic with any abdominal complaints. At this point, he has been ruled out for viral causes of hepatitis given his hepatitis screen was negative on 06/22/18 with unknown explanation of why he would have hepatitis steatosis as seen on imaging, namely his obesity as well as his alcoholism. I have spoken with the patient regarding the dangers of hepatic fibrosis leading to cirrhosis and I have advised abstinence, AA meetings, and other social support such as what he is currently getting in the [facility]. He mentions that he understands above. Thank you for having us participate in the care and management of Mr. Anthony. Please call us with any other questions. We will sign off at this time. [id number]/[facility] #: [id number] ESTHELA
[2018-06-30 07:41] LABS: EGFR Non-African American 80.4 (>60)
[2018-06-30] MEDS: Vitamin THERAPEUTIC TAB PO SCH (08:59)
[2018-06-30] MEDS: Thiamine TAB* 100 MG TAB PO SCH (08:59)
--- NOTE | 2018-06-30 12:20 | PN ---
Subjective - Subjective Date of Service: 06/30/18 Service Type: 29327 Hosp care 15 min low complexity Subjective: Bigg's affect is improving. He was medically cleared by the hospitalist service who diagnosed him with fatty liver disease and implored him to abstain from alcohol usage. The patient is denying SI or HI. He has no explanation for the tamoxifen found by his parents in his bedroom but does admit to using weight lifting supplements to bulk up his frame. He is counseled on the possibility of further liver damage from these supplements and agrees to discontinue them. Objective - Appearance Appearance: Well Developed/Nourished Dysmorphic Features: No Hygiene: Normal Grooming: Fairly Well Kept - Behavior Psychomotor Activities: Normal Exhibits Abnormal Movement: No - Attitude and Relatedness Attitude and Relatedness: Cooperative Eye Contact: Good - Speech Quality: Unpressured Latencies: Normal Quantity: Appropriate - Mood Patient's Decription of Mood: "Okay" - Affect Observed Affect: Fair Affect Consistent with: Euthymia - Thought Process Patient's Thought Process: Coherent Thought Content: No Passive Wish, No Suicidal Planning, No Homicidal Ideation, No Paranoid Ideation - Sensorium Experiencing Hallucinations: No, Sensorium is Clear Type of Hallucinations: Visual: No, Auditory: No, Command: No - Level of Consciousness Level of Consciousness: Alert Orientation: Yes Intact, Yes Orientated to Time, Yes Orientated to Place, Yes Orientated to Person - Impulse Control Impulse Control: Tenuous - Insight and Judgement Insight and Judgement: Fair - Group Participation Particating in Group Activities: Yes - Medication Management Medication Management Adherence: Yes Assessment - Assessment Merits Inpatient Hospitalization: Consolidate Improvements, Pending Safe DC Plan Inpatient DSM-V Dx: F10.24 Clinical Impression: 33 y.o. single, white male with a history of alcoholism, type I bipolar disorder with prominent depressive episodes and multiple previous psychiatric admissions at both [facility] [place] [facility], who is transferred from the hospitalist service following his second medical admission for alcohol detoxification in one week. It is speculated that the overuse of alcohol represents purposeful self-harm, as he admits to both severe depression and anxiety. Plan - Plan Treatment Plan: Name: BIGG OSMAN JR Birthdate: 1985 [id number] The patients mirtazapine has been resumed at 30mg PO qhs, however, his lamotrigine and lurasidone are being temporarily held because his liver enzymes remain elevated, even after the weekend, although results this AM indicate these are finally starting to trend downwards. He refuses inpatient or outpatient substance abuse referrals and his insight is not good. We'll likely discharge him to home tomorrow, June 30. I'll call Dr. Marium Peralta at [facility] so that she can recheck his LFTs prior to resuming meds. Continued Medication Management: Continue Outpt Medication Medications: Current Medications Al Hydrox/Mg Hydrox/Simethicone (Maalox Plus*) 30 ml PO Q4H PRN PRN Reason: INDIGESTION Mirtazapine (Remeron Tab*) 30 mg PO BEDTIME [facility] Last Admin: 06/29/18 20:00 Dose: 30 mg Multivitamins (Theragran Tab*) 1 tab PO DAILY [facility] Last Admin: 06/30/18 08:59 Dose: 1 tab Thiamine HCl (Vitamin B-1 Tab*) 100 mg PO DAILY [facility] Last Admin: 06/30/18 08:59 Dose: 100 mg - Discharge Plan Discharge Plan: Outpatient Follow Up Outpatient Program: [facility] Lab Results - Lab Results Lab Results: 06/29/18 06/30/18 08:01 06:30 Sodium 139 139 Potassium 4.0 4.2 Chloride 104 103 Carbon Dioxide 27 27 Anion Gap 8 9 BUN 15 19 Creatinine 0.98 1.05 Est GFR ( Amer) 105.3 97.3 Est GFR (Non-Af Amer) 87.0 80.4 BUN/Creatinine Ratio 15.3 18.1 Glucose 99 99 Calcium 9.8 9.5 Total Bilirubin 0.60 0.60 AST 169 H 111 H ALT 419 H 346 H Alkaline Phosphatase 85 77 Total Protein 7.1 6.5 Albumin 4.3 4.0 Globulin 2.8 2.5 Albumin/Globulin Ratio 1.5 1.6
[2018-06-30] MEDS: Mirtazapine TAB* 15 MG PO SCH (20:08)
[2018-07-01 09:19] VITALS: BP 110/63
[2018-07-01] MEDS: Thiamine TAB* 100 MG TAB PO SCH (09:19)
[2018-07-01] MEDS: Vitamin THERAPEUTIC TAB PO SCH (09:19)
--- NOTE | 2018-07-01 13:31 | DS ---
DATE OF ADMISSION: 06/24/2018. DATE OF DISCHARGE: 07/01/2018. DISCHARGE DIAGNOSES: AXIS I: Alcohol-induced mood disorder; alcohol use disorder; bipolar disorder type 1, most recent ep isode depressed. AXIS II: Schizoid personality traits. CONDITION AT THE TIME OF DISCHARGE: Improved. The patient has been successfully detoxified off of a lcohol. He has been cooperative with all milieu programming, attending groups, safe on all checks. He has had numerous visits from his Alcoholics Anonymous sponsor and he is feeling safe for discharge to the community. Unfortunately, he is declining referrals to both inpatient and outpatient [facility] abuse care; however, he is willing to go to daily meetings with Alcoholics Anonymous under the supp ort of his sponsor. I have spoken with his father, Bigg Anthony , as well as Dr. Ely, his primary care provider, and they are comfortable with the discharge plan. The patient is willing to f ollow-up with the [facility]. One cause for concern is that his liver enzy mes remain elevated and until they return to normal, we are reluctant to resume several of his psychi atric medications. This has been communicated to the [facility] and they w ill be following up with the patient after discharge. LABORATORY DATA: Metabolic testing was performed on the 25 of June resulting in hemoglobin A1c o f 5.4, triglycerides 132, cholesterol 199, LDL cholesterol 113, HDL cholesterol 59.7. His most recen t liver function test includes an AST which is elevated at 111 and ALT elevated at 346. These were c ompleted on the 30 of June. MENTAL STATUS EXAM AT THE TIME OF DISCHARGE: The patient is a dark-skinned, somewhat overweight whit e male with fair grooming. He is dressed in street clothes, makes somewhat limited eye contact. Spe ech is spontaneous with a slow rate and low tones. Mood appears to be mildly anxious but with a full affect. Thought process is linear, goal-directed. Thought content is significant for his desire to be discharged from the hospital. He denies suicidal or homicidal ideations and has done so throughou t this hospitalization. He denies auditory or visual hallucinations. Insight and judgment are fair given his willingness to follow-up with his outpatient psychiatrist and outpatient primary care provi johnny. Cognitively, he is awake and alert with what would appear to be a slightly high IQ by virtue of his academic background. DISCHARGE INSTRUCTIONS TO THE PATIENT: A. Medications: The patient is taking Thiamine 100 mg p.o. daily, folic acid 1 mg p.o. daily, Yanna zapine 30 mg p.o. at bedtime. The patient is also on the following medications, but they are not to resume until his liver function test normalize. These include Latuda 160 mg p.o. at bedtime, Lamicta l 200 mg p.o. at bedtime, Naltrexone 50 mg p.o. at bedtime, Topamax 75 mg p.o. b.i.d. The patient ex presses understanding that he is only to resume these medications under the direct supervision of Dr. Marium Peralta at [facility] once his liver enzymes return to normal. B. Diet: Regular. C. Activities: The patient is to avoid weightlifting supplements as well as further alcohol intake. He is a nonsmoker. There are no laboratory or diagnostic studies pending at the time of discharge. D. Follow-up care: The patient has a follow-up tomorrow, 07/02/2018, with Dr. Marium Peralta of the [facility]. He is also to follow-up with Dr. Dali Ely for primary care. E. Substance abuse follow-up: Substance use treatment referrals were offered and the patient refuse d; however, he is willing to go to daily Alcoholics Anonymous meetings in the community. HOSPITAL COURSE - PART A: Reason for admission: The patient is a 33-year-old, single, white male wit h a history of alcoholism, type I bipolar disorder with prominent depressive episodes, and multiple p [place] [facility] [place] [facility] who was readmitted to the Hospitalist Medical Service for alcohol detoxification less than 48 hours after his most recent disch arge for a similar presentation. While on the Hospitalist service, it was determined that he would b enefit from involuntary treatment on the [facility] and he had just been transferred to my care here on . Initially, I evaluated him on 06/19/2018. At that time, per report, ambulance drivers r esponded to a tip from his AA sponsor that he was inebriated and physically incapacitated. When they arrived in his apartment, they discovered three empty bottles of vodka, as well as [id number] ca ses of beer in the sink. It was unable to be determined over what timeframe this was consumed and Mr Lor Anthony was sluggish in thought and unsteady on his feet. When I evaluated him that Friday, he w as insisting on discharge, but I did not feel that he had capacity to leave the hospital against medi araseli advice and his detoxification had not been complete. One day later on the 20 of June, he was discharged to home; however, within 24 hours, he returned to the emergency room as someone within hi s group of friends and family had talked to him on the phone and he sounded similarly intoxicated. W hen he was brought to the emergency room the second time, he had several contusions on his face follo wing a fall. His blood alcohol content was in the 400s and he was readmitted for detoxification. At this time, I cannot rule out that these alcohol intoxifications represent purposeful self-harm, perh aps even suicidal intentions. The patient denied this, but displayed very limited insight and judgme nt, wanting only to go home so that he could return to his job at [employer]. We did not fee l that he was safe and so the hospitalist signed at 9.39 legal form which I have validated at this ti me. Symptomatically, he is minimizing all behaviors including depression, but does indicate that his anxiety was bad which led to resumption of drinking approximately one month prior. HOSPITAL COURSE - PART B: Psychiatric treatment rendered: The patient was transferred from the Medica l Unit to the Behavioral Science Unit and placed on q.15 minute checks for his own safety. At that po int, his alcohol detoxification had been complete and we did not continue the WAM protocol. Instead, he was placed back on Mirtazapine and we awaited further liver function test to see if it was safe t o place him back on his other psychiatric medications. Unfortunately, his LFT's remain elevated thro ughout this hospitalization, although the last test on the 30 of June did indicate that they were having a downward trajectory. I made numerous phone calls to the [facility] and exchanged some voicemails with Dr. Marium Peralta who is his outpatient psychiatrist. She is to be made aware of his liver issues and the need for further liver function tests to see when he is re fawad to resume his other psychiatric medications. I also spoke with his father, Bigg Anthony ., who is a palliative care physician in [place], [place]. Bigg Garcia. indicated that when his pare nts went to the patient's apartment, they found several bottles of [id number] weight lifting ya pplements as well as a bottle of Tamoxifen which is sometimes used by weightlifting steroid abusers t o reduce breast tissue. The patient was confronted about this and although he admitted using supplem ents, he denied the use of androgenic steroids. The patient is strongly counseled that weightlifting supplements along with alcohol can be problematic for his liver. I did request hospitalists consult ation and he was seen on the 29 [address] Dangelo Melendrez who examined him and reviewed h is chart and felt that this LFT's were secondary to fatty liver disease which was confirmed by both C T and ultrasound evidence. The patient is agreeable with following up with Dr. Ely in the outpati ent setting and I did briefly discuss his issues with that clinician. At this time, the patient cont inues to deny suicidal ideations as he has done throughout this hospitalization. Mostly he has been keeping to himself, although he has attended groups. The patient's AA sponsor has been in numerous t imes to visit with him and the patient does seem invested in AA recovery services in the community, a lthough he did decline formal substance abuse referral to inpatient or outpatient treatment. At this time, I see no further justification for involuntary treatment. The patient is improved and will be discharged to the community. [id number]/[facility] #: [id number]
== END 2018-07-01 14:00 | disposition home or self-care (01) | DRG 897 ==
LOC: BSU 17:26
PROVIDERS: ADMIT Psychiatry & Neurology Psychiatry; ATTEND Psychiatry & Neurology Psychiatry
PROC: GZHZZZZ Group Psychotherapy (ICD-10-PCS; principal; 2018-06-24)
PROC: HZ2ZZZZ Detoxification Services for Substance Abuse Treatment (ICD-10-PCS; 2018-06-24)
DX: F10.24 Alcohol dependence with alcohol-induced mood disorder (principal); F31.9 Bipolar disorder, unspecified; E78.00 Pure hypercholesterolemia, unspecified; K76.0 Fatty (change of) liver, not elsewhere classified; E66.9 Obesity, unspecified; S00.83XA Contusion of other part of head, initial encounter; W19.XXXA Unspecified fall, initial encounter; Y92.9 Unspecified place or not applicable; Z91.5 Personal history of self-harm; Z83.49 Family history of other endocrine, nutritional and metabolic diseases; Z68.32 Body mass index [BMI] 32.0-32.9, adult
CPT/HCPCS: 36415; 80053; 80061; 83036; 90853; 99222; 99231; 99238; A9270-GY

== ENCOUNTER → 2018-07-11 21:20 | Emergency (ER) | payer OTHER ==
[~2018-07-11 21:20] MED LIST: LORazepam TAB(*) 1 MG PO ONE; NS 0.9% 1000 ML* 2,000 ML IV ONE
--- NOTE | 2018-07-11 21:47 | ED ---
Substance Abuse/Use - HPI Summary HPI Summary: Pt is a 33 year old male presenting to the ED [facility] with a chief complaint of intoxication. Per EMS, he had drank a 24 pack today as well as a bottle of liquor and did not feel safe by himself. He has a hx of alcoholism, and usually calls his sponsor when he is drunk but he did not. Pt states he was worried he would have the shakes, that he drinks every day, works at [employer], and lives by himself. He states he has bipolar disorder, but has a fatty liver, and has previously overdosed on lithium so he does not take it anymore. - History Of Current Complaint Chief Complaint: EDOverdose Stated Complaint: 2208 Time Seen by Provider: 07/11/18 21:33 Hx Obtained From: Patient Onset/Duration of Drug/ETOH Abuse: Hours Ingestion History: Type/Name Of Drug - EtOH, Amount Ingested - 24 pack and a bottle of liquor, Approximate Time Of Ingestion - all day today Timing Of Abuse: Daily Severity Initially: Moderate Severity Currently: Moderate Character: Anxious Aggravating Factor(s): Nothing Alleviating Factor(s): Nothing Associated Signs And Symptoms: Other: - shakes - Allergies/Home Medications Allergies/Adverse Reactions: Allergies Allergy/AdvReac Type Severity Reaction Status Date / Time No Known Allergies Allergy Verified 07/11/18 21:34 PMH/Surg Hx/FS Hx/Imm Hx Previously Healthy: No Endocrine/Hematology History: Denies: Hx Anticoagulant Therapy, Hx Diabetes, Hx Thyroid Disease Cardiovascular History: Denies: Hx Hypertension, Hx Pacemaker/ICD Respiratory History: Denies: Hx Asthma, Hx Chronic Obstructive Pulmonary Disease (COPD) History: Reports: Hx Acute Renal Failure Denies: Hx Renal Disease Sensory History: Denies: Hx Contacts or Glasses, Hx Hearing Aid Opthamlomology History: Denies: Hx Contacts or Glasses Neurological History: Denies: Hx Dementia, Hx Seizures Psychiatric History: Reports: Hx Anxiety, Hx Depression, Hx Inpatient Treatment , Hx Community Mental Health Tx, Hx Bipolar Disorder - Type 1, Hx Suicide Attempt, Hx of Violent Episodes Against Others - PT denies hx of violence against others, Hx Substance Abuse - alcohol Denies: Hx Attention Deficit Hyperactivity Disorder, Hx Eating Disorder, Hx Panic Disorder, Hx Post Traumatic Stress Disorder, Hx Schizophrenia, Other Psychiatric Issues/Disorders - Surgical History Surgery Procedure, Year, and Place: unobtainable, even from prior charts, level 5 caveat - Immunization History Date of Tetanus Vaccine: unk Date of Influenza Vaccine: fall 2016 Infectious Disease History: Unable to Obtain/Confirm Infectious Disease History: Denies: Hx Clostridium Difficile, Hx Hepatitis, Hx Human Immunodeficiency Virus (HIV), Hx Shingles, Hx Tuberculosis, Traveled Outside the [place] in Last 30 Days - Family History Known Family History: Positive: Other - alcoholism Family History: Patient denies relevant family medical history. - Social History Alcohol Use: Daily Alcohol Amount: today - 24 beers, 1 bottle liquor Hx Substance Use: No Substance Use Type: Reports: None Substance Use Comment - Amount & Last Used: Day of admission Hx Tobacco Use: No Smoking Status (MU): Never Smoked Tobacco Amount Used/How Often: Pt has not used any tobacco products in the last 30 days Have You Smoked in the Last Year: No Review of Systems Negative: Fever Neurological: Other - shakes Positive: Anxious All Other Systems Reviewed And Are Negative: Yes Physical Exam - Summary Physical Exam Summary: Appearance: Well-appearing, Well-nourished, lying in bed comfortable Skin: Warm, dry, no obvious rash Eyes: sclera anicteric, no conjunctival pallor ENT: mucous membranes moist Neck: deferred Respiratory: No signs of respiratory distress Cardiovascular: Appears well perfused, pulses are nml Abdomen: deferred Musculoskeletal: Moving all 4 extremities without obvious discomfort Neurological: Awake and alert, answering questions appropriately, appears intoxicated, no signs of trauma Psychiatric: affect is normal, does not appear anxious or depressed Triage Information Reviewed: Yes Vital Signs On Initial Exam: Initial Vitals Temp Pulse Resp BP Pulse Ox 97.1 F 115 22 131/94 95 07/11/18 21:32 07/11/18 21:32 07/11/18 21:32 07/11/18 21:32 07/11/18 21:32 Vital Signs Reviewed: Yes Diagnostics - Vital Signs Vital Signs Temp Pulse Resp BP Pulse Ox 07/11/18 21:32 97.1 F 115 22 131/94 95 - Laboratory Result Diagrams: 07/11/18 21:45 07/11/18 21:45 Lab Statement: Any lab studies that have been ordered have been reviewed, and results considered in the medical decision making process. Course/Dx - Course Course Of Treatment: This is a 33-year-old man with alcohol intoxication. Even as he is metabolizing his alcohol, his affect continues to be somewhat bizarre and inappropriate. He does have underlying psychiatric issues, and I think it would be appropriate to obtain a mental health consultation to see if this is something more than simple alcohol abuse. Discharge - Sign-Out/Discharge Documenting (check all that apply): Patient Departure, Sign-Out Patient Signing out patient TO: Remi Milligan Receiving patient FROM: Colt Blanchard - Discharge Plan Condition: Stable Disposition: HOME Referrals: Dali Ely MD [Primary Care Provider] - - Billing Disposition and Condition Condition: STABLE Disposition: Home - Attestation Statements Document Initiated by Scribe: Yes Documenting Scribe: Kate Lopez Provider For Whom Kannan is Documenting (Include Credential): Colt Blanchard MD. Scribe Attestation: Kate Dukes, scribed for Colt Blanchard MD. on 07/12/18 at 0637.
[2018-07-11 21:57] LABS: ABS Basophils 0 10^3/ul (0-0.2); ABS Eosinophils 0 10^3/ul (0-0.6); ABS Lymphocytes 2.4 10^3/ul (1.0-4.8); ABS Monocytes 0.8 10^3/ul (0-0.8); ABS Neutrophils 4.5 10^3/ul (1.5-7.7); ABS Nucleated RBC 0 10^3/ul; Eosinophil % 0.3 % (0-6); Hematocrit 45 % (42-52); Hemoglobin 16.2 g/dl (14.0-18.0); Lymphocyte % 31.3 % (25-47); Mean Corpuscular HGB Conc 36 g/dl (31-36); Mean Corpuscular Hemoglobin 31 pg (27-31); Mean Corpuscular Volume 87 fL (80-94); Mean Platelet Volume 7.3 um3 (7.4-10.4); Nucleated Red Blood Cells % 0.1; Platelet Count 314 10^3/ul (150-450); Red Blood Count 5.22 10^6/ul (4.00-5.40); Red Cell Distribution Width 15 % (10.5-15); White Blood Count 7.8 10^3/ul (3.5-10.8)
[2018-07-11 22:08] LABS: EGFR Non-African American 94.8 (>60)
--- NOTE | 2018-07-12 07:01 | ED ---
Progress - Progress Note Progress Note: Patient was received as a sign out from Dr. Blanchard to Dr. Milligan at 0700 . re-eval at 0735: Patient is a 33 y/o M. In the room, he states he had too much to drink. Last night, he was drinking in apartment by himself. He states this is not unusual. He claims he is unsure who called ambulance. He denies mental health problems in the room. He denies SI, HI, and states he will keep an eye on drinking. Patient does not want to see MHE and wants to be discharged to home. Dx of alcohol intoxication. Re-Evaluation - Re-Evaluation First Eval Re-Evaluation Time: 07:35 Change: Improved Comment: Patient is a 33 y/o M. In the room, he states he had too much to drink. Last night, he was drinking in apartment by himself. He states this is not unusual. He claims he is unsure who called ambulance. He denies mental health problems in the room. He denies SI, HI, and states he will keep an eye on drinking. Patient does not want to see MHE and wants to be discharged to home. Dx of alcohol intoxication. Course/Dx - Course Course Of Treatment: Patient known alcoholic with history of bipolar disorder. Well-known to ER. Sobered over several hours. He is not complaining of any mental health issues. He is alert, oriented and demonstrates functional capacity is evidenced by clear speech, steady gait and ability to reason. Discharged with a list of local resources to help with his drinking. - Diagnoses Provider Diagnoses: Alcohol intoxication Discharge - Sign-Out/Discharge Documenting (check all that apply): Patient Departure - discharge , Receiving Sign-Out Signing out patient TO: Remi Milligan Receiving patient FROM: Colt Blanchard - Discharge Plan Condition: Improved Disposition: HOME Patient Education Materials: Alcohol Intoxication (ED) Referrals: Dali Ely MD [Primary Care Provider] - Additional Instructions: Never drink to excess. A list of local resources to help her deal with her drinking has been provided. Return if worse, new symptoms or other concerns as discussed. - Billing Disposition and Condition Condition: IMPROVED Disposition: Home - Attestation Statements Document Initiated by Scribe: Yes Documenting Scribe: Myron Riley Provider For Whom Scribe is Documenting (Include Credential): Remi Milligan MD Scribe Attestation: I, Myron Riley, scribed for Remi Milligan MD on 07/12/18 at 0941. Scribe Documentation Reviewed: Yes Provider Attestation: The documentation as recorded by the tadibeMyron accurately reflects the service I personally performed and the decisions made by me, Remi Milligan MD
[2018-07-12 08:08] VITALS: BP 139/86
== END | disposition home or self-care (01) ==
LOC: ED 21:20
DX: F10.129 Alcohol abuse with intoxication, unspecified (principal)
CPT/HCPCS: 36415; 80053; 80320; 80329; 85025; 99282; A9270-GY; G0480

== ENCOUNTER 2018-07-14 21:46 | Emergency (ER) | payer OTHER ==
[2018-07-14] MEDS ORDERED: Thiamine IV 100 MG, Folic Acid IV* 1 MG, Multiple Vitamin IV ADULT* 10 ML in NS 0.9% 10... IV ONE (22:15)
[2018-07-14] MEDS ORDERED: Metoclopramide IV* 5 MG/ML 2 ML VIAL IV SLOW PU ONE (22:16)
--- NOTE | 2018-07-14 22:20 | ED ---
Altered Mental Status - HPI Summary HPI Summary: LEVEL 5 CAVEAT: Patient is intoxicated and not talking. This patient is a 33 year old M BIBA to [facility] with a chief complaint of alcohol intoxication since 21:50. Patient has been vomiting. - History Of Current Complaint Chief Complaint: EDSubstanceAbuse Stated Complaint: 2208 Time Seen by Provider: 07/14/18 21:56 Hx Obtained From: EMS Hx From Patient Unobtainable Due To: Altered Mental Status Associated Signs And Symptoms: Positive: Vomiting - Allergies/Home Medications Allergies/Adverse Reactions: Allergies Allergy/AdvReac Type Severity Reaction Status Date / Time No Known Allergies Allergy Verified 07/11/18 21:34 PMH/Surg Hx/FS Hx/Imm Hx Endocrine/Hematology History: Denies: Hx Anticoagulant Therapy, Hx Diabetes, Hx Thyroid Disease Cardiovascular History: Denies: Hx Hypertension, Hx Pacemaker/ICD Respiratory History: Denies: Hx Asthma, Hx Chronic Obstructive Pulmonary Disease (COPD) History: Reports: Hx Acute Renal Failure Denies: Hx Renal Disease Sensory History: Denies: Hx Contacts or Glasses, Hx Hearing Aid Opthamlomology History: Denies: Hx Contacts or Glasses Neurological History: Denies: Hx Dementia, Hx Seizures Psychiatric History: Reports: Hx Anxiety, Hx Depression, Hx Inpatient Treatment , Hx Community Mental Health Tx, Hx Bipolar Disorder - Type 1, Hx Suicide Attempt, Hx of Violent Episodes Against Others - PT denies hx of violence against others, Hx Substance Abuse - alcohol Denies: Hx Attention Deficit Hyperactivity Disorder, Hx Eating Disorder, Hx Panic Disorder, Hx Post Traumatic Stress Disorder, Hx Schizophrenia, Other Psychiatric Issues/Disorders - Surgical History Surgery Procedure, Year, and Place: unobtainable, even from prior charts, level 5 caveat - Immunization History Date of Tetanus Vaccine: unk Date of Influenza Vaccine: fall 2016 Infectious Disease History: No Infectious Disease History: Denies: Hx Clostridium Difficile, Hx Hepatitis, Hx Human Immunodeficiency Virus (HIV), Hx Shingles, Hx Tuberculosis, Traveled Outside the [place] in Last 30 Days - Family History Known Family History: Positive: Other - alcoholism Family History: Patient denies relevant family medical history. - Social History Alcohol Use: Daily Alcohol Amount: today - 24 beers, 1 bottle liquor Hx Substance Use: No Substance Use Type: Reports: None Substance Use Comment - Amount & Last Used: Day of admission Hx Tobacco Use: No Smoking Status (MU): Never Smoked Tobacco Amount Used/How Often: Pt has not used any tobacco products in the last 30 days Have You Smoked in the Last Year: No Review of Systems Positive: Other - Alcohol intoxication Positive: Vomiting All Other Systems Reviewed And Are Negative: No Physical Exam - Summary Physical Exam Summary: VITAL SIGNS: Reviewed. GENERAL: Patient is a well-developed and nourished MALE who is lying comfortable in the stretcher. Patient is not in any acute respiratory distress. He is holding a vomit bag as if he is nauseas. HEAD AND FACE: No signs of trauma. No ecchymosis, hematomas or skull depressions. No sinus tenderness. EYES: PERRLA, EOMI x 2, No injected conjunctiva, no nystagmus. EARS: Hearing grossly intact. Ear canals and tympanic membranes are within normal limits. MOUTH: Oropharynx within normal limits. NECK: Supple, trachea is midline, no adenopathy, no JVD, no carotid bruit, no c- spine tenderness, neck with full ROM. CHEST: Symmetric, no tenderness at palpation LUNGS: Clear to auscultation bilaterally. No wheezing or crackles. CVS: Regular rhythm, tachycardia, S1 and S2 present, no murmurs or gallops appreciated. ABDOMEN: Soft, non-tender. No signs of distention. No rebound no guarding, and no masses palpated. Bowel sounds are normal. EXTREMITIES: FROM in all major joints, no edema, no cyanosis or clubbing. NEURO: Alert and oriented x 3. No acute neurological deficits. Patient is not responding to questions. SKIN: Dry and warm Triage Information Reviewed: Yes Vital Signs On Initial Exam: Initial Vitals Temp Pulse Resp BP Pulse Ox 98 F 92 16 138/82 98 07/14/18 21:50 07/14/18 21:50 07/14/18 21:50 07/14/18 21:50 07/14/18 21:50 Vital Signs Reviewed: Yes Completion Of Physical Exam Limited Due To: Altered Mental Status Diagnostics - Vital Signs Vital Signs Temp Pulse Resp BP Pulse Ox 07/14/18 21:50 98 F 92 16 138/82 98 - Laboratory Result Diagrams: 07/14/18 22:30 07/14/18 22:30 Lab Statement: Any lab studies that have been ordered have been reviewed, and results considered in the medical decision making process. Altered Mental Statu Course/Dx - Course Assessment/Plan: LEVEL 5 CAVEAT: Patient is intoxicated and not talking. This patient is a 33 year old M BIBA to [facility] with a chief complaint of alcohol intoxication since 21:50. Patient has been vomiting. Patient signed out to Dr. Calles during a shift change. Waiting for patient to regain sobriety. - Diagnoses Provider Diagnoses: Alcohol intoxication Discharge - Sign-Out/Discharge Documenting (check all that apply): Sign-Out Patient Signing out patient TO: Emiliano Calles - Waiting for the patient regain sobriety - Discharge Plan Referrals: Dali Ely MD [Primary Care Provider] - - Attestation Statements Document Initiated by Scribe: Yes Documenting Scribe: Seamus Palacios Provider For Whom Scribe is Documenting (Include Credential): Alisha Quevedo MD Scribe Attestation: Seamus Dukes, scribed for Alisha Quevedo MD on 07/15/18 at 0650.
[2018-07-14 22:30] LABS: Urine Appearance Clear; Urine Blood 1+ (Negative); Urine Color Straw; Urine Ketones Negative (Negative); Urine Protein Negative (Negative); Urine Red Blood Cell Absent (Absent); Urine Specific Gravity 1.003 (1.010-1.030); Urine Urobilinogen Negative (Negative); Urine White Blood Cell Absent (Absent)
[2018-07-14 22:36] LABS: Hematocrit 49 % (42-52); Hemoglobin 17.1 g/dl (14.0-18.0); Mean Corpuscular HGB Conc 35 g/dl (31-36); Mean Corpuscular Hemoglobin 30 pg (27-31); Mean Corpuscular Volume 87 fL (80-94); Mean Platelet Volume 7.2 um3 (7.4-10.4); Platelet Count 306 10^3/ul (150-450); Red Blood Count 5.69 10^6/ul (4.00-5.40); Red Cell Distribution Width 15 % (10.5-15); White Blood Count 7.7 10^3/ul (3.5-10.8)
[2018-07-14 22:39] LABS: ABS Basophils 0 10^3/ul (0-0.2); ABS Eosinophils 0 10^3/ul (0-0.6); ABS Lymphocytes 1.9 10^3/ul (1.0-4.8); ABS Monocytes 0.8 10^3/ul (0-0.8); ABS Neutrophils 4.7 10^3/ul (1.5-7.7); ABS Nucleated RBC 0 10^3/ul; Eosinophil % 0.1 % (0-6); Lymphocyte % 25.4 % (25-47); Nucleated Red Blood Cells % 0.1
[2018-07-14 22:52] LABS: EGFR Non-African American 94.8 (>60)
--- NOTE | 2018-07-15 07:26 | ED ---
Progress - Progress Note Progress Note: This pt was signed out by Dr. Quevedo, pending disposition, awaiting alcohol metabolism and subsequent MHE. Course/Dx - Course Course Of Treatment: Pt is medically cleared at 09:46. Pt was evaluated by the mental health termite inspector and his case was reviewed by Dr. Howard, psychiatrist. Dr. Howard recommends to discharge the pt home with outpatient follow up with [facility]. - Diagnoses Provider Diagnoses: Alcohol intoxication Discharge - Sign-Out/Discharge Documenting (check all that apply): Patient Departure - Discharge, Receiving Sign-Out Receiving patient FROM: Wili Quevedo - Discharge Plan Condition: Stable Disposition: HOME Patient Education Materials: Alcohol Intoxication (ED) Referrals: Dali Ely MD [Primary Care Provider] - 3 Days Additional Instructions: Follow up with [facility]. RETURN TO THE ED FOR ANY NEW OR WORSENING SYMPTOMS. - Attestation Statements Document Initiated by Scribe: Yes Documenting Scribe: Arianna Martinez Provider For Whom Scribe is Documenting (Include Credential): Emiliano Calles MD Scribe Attestation: Arianna Dukes, scribed for Emiliano Calles MD on 07/15/18 at 1116.
[2018-07-15] MEDS ORDERED: LORazepam INJ* 2 MG/ML 1 ML VIAL IV PUSH ONE (09:12)
[2018-07-15 11:29] VITALS: BP 110/80
== END 2018-07-15 11:28 | disposition home or self-care (01) ==
LOC: ED 21:46
DX: F10.129 Alcohol abuse with intoxication, unspecified (principal)
CPT/HCPCS: 36415; 80053; 80307; 80320; 80329; 81003; 81015; 82550; 84443; 85025; 96365; 96375; 99285; G0480; J2060; J2765; J3411

== ENCOUNTER 2018-08-27 16:33 | Emergency (ER) | payer OTHER ==
[2018-08-27] MEDS ORDERED: LORazepam TAB(*) 1 MG PO ONE (16:35)
[2018-08-27] MEDS ORDERED: LORazepam TAB(*) 1 MG ONE (16:37)
[2018-08-27 17:06] LABS: ABS Basophils 0 10^3/ul (0-0.2); ABS Eosinophils 0 10^3/ul (0-0.6); ABS Lymphocytes 2.2 10^3/ul (1.0-4.8); ABS Monocytes 0.7 10^3/ul (0-0.8); ABS Neutrophils 5.9 10^3/ul (1.5-7.7); ABS Nucleated RBC 0.1 10^3/ul; Eosinophil % 0 % (0-6); Hematocrit 50 % (42-52); Hemoglobin 17.3 g/dl (14.0-18.0); Lymphocyte % 24.8 % (25-47); Mean Corpuscular HGB Conc 35 g/dl (31-36); Mean Corpuscular Hemoglobin 30 pg (27-31); Mean Corpuscular Volume 87 fL (80-94); Mean Platelet Volume 7.2 um3 (7.4-10.4); Nucleated Red Blood Cells % 0.6; Platelet Count 353 10^3/ul (150-450); Red Cell Distribution Width 14 % (10.5-15); White Blood Count 8.8 10^3/ul (3.5-10.8)
[2018-08-27] MEDS ORDERED: Haloperidol INJ IV/IM* 5 MG/ML AMP IM ONE (17:07)
[2018-08-27] MEDS ORDERED: LORazepam INJ* 2 MG/ML 1 ML VIAL ONE (17:10)
[2018-08-27] MEDS ORDERED: LORazepam INJ* 2 MG/ML 1 ML VIAL IM ONE (17:14)
--- NOTE | 2018-08-27 17:39 | ED ---
Substance Abuse/Use - HPI Summary HPI Summary: This patient is a 33 year old M presenting to [facility] accompanied by police with a chief complaint of EtOH intoxication since [employer]. Level 5 caveat: Full HPI unobtainable due to pt intoxication. He states a recent stressor is pts mother s illness. He endorses his drinking problem has gotten worse recently. - History Of Current Complaint Chief Complaint: EDSubstanceAbuse Stated Complaint: 2208 Time Seen by Provider: 08/27/18 16:34 Hx Obtained From: Patient, EMS, Other: - police Hx From Patient Unobtainable Due To: Altered Mental Status - secondary to EtOH intoxication Ingestion History: Type/Name Of Drug - EtOh, Amount Ingested - up to 38 beers. Overdose Characteristics: Oral Timing Of Abuse: Binge Use Severity Initially: Moderate Severity Currently: Moderate Character: Stuporous Aggravating Factor(s): Recent Stress Alleviating Factor(s): Nothing Associated Signs And Symptoms: Intentional Ingestion Related Hx: Recent Stressors - Allergies/Home Medications Allergies/Adverse Reactions: Allergies Allergy/AdvReac Type Severity Reaction Status Date / Time No Known Allergies Allergy Verified 08/30/18 01:11 PMH/Surg Hx/FS Hx/Imm Hx Endocrine/Hematology History: Denies: Hx Anticoagulant Therapy, Hx Diabetes, Hx Thyroid Disease Cardiovascular History: Denies: Hx Hypertension, Hx Pacemaker/ICD Respiratory History: Denies: Hx Asthma, Hx Chronic Obstructive Pulmonary Disease (COPD) History: Reports: Hx Acute Renal Failure Denies: Hx Renal Disease Sensory History: Denies: Hx Contacts or Glasses, Hx Hearing Aid Opthamlomology History: Denies: Hx Contacts or Glasses Neurological History: Denies: Hx Dementia, Hx Seizures Psychiatric History: Reports: Hx Anxiety, Hx Depression, Hx Inpatient Treatment , Hx Community Mental Health Tx, Hx Bipolar Disorder - Type 1, Hx Suicide Attempt, Hx of Violent Episodes Against Others - PT denies hx of violence against others, Hx Substance Abuse - alcohol Denies: Hx Attention Deficit Hyperactivity Disorder, Hx Eating Disorder, Hx Panic Disorder, Hx Post Traumatic Stress Disorder, Hx Schizophrenia, Other Psychiatric Issues/Disorders - Surgical History Surgery Procedure, Year, and Place: unobtainable, even from prior charts, level 5 caveat - Immunization History Date of Tetanus Vaccine: unk Date of Influenza Vaccine: fall 2016 Infectious Disease History: No Infectious Disease History: Denies: Hx Clostridium Difficile, Hx Hepatitis, Hx Human Immunodeficiency Virus (HIV), Hx Shingles, Hx Tuberculosis, Traveled Outside the [place] in Last 30 Days - Family History Known Family History: Positive: Other - alcoholism Family History: Patient denies relevant family medical history. - Social History Alcohol Use: Daily - binge use Alcohol Amount: binge use Hx Substance Use: No Substance Use Type: Reports: None Substance Use Comment - Amount & Last Used: Day of admission Hx Tobacco Use: No Smoking Status (MU): Never Smoked Tobacco Amount Used/How Often: Pt has not used any tobacco products in the last 30 days Have You Smoked in the Last Year: No Review of Systems - ROS Summary Review of Systems Summary: Level 5 caveat: Full ROS unobtainable secondary to EtOH intoxication. Positive: Other - stuporous secondary to severe EtOH intoxication. Negative: Fever Positive: no symptoms reported Positive: Slurred Speech All Other Systems Reviewed And Are Negative: No Physical Exam - Summary Physical Exam Summary: Appearance: Obviously intoxicated, speech halting and slurred. Skin: Warm, dry, no obvious rash Eyes: sclera anicteric, no conjunctival pallor ENT: mucous membranes moist Neck: deferred Respiratory: No signs of respiratory distress Cardiovascular: Appears well perfused, pulses are nml Abdomen: deferred Musculoskeletal: Moving all 4 extremities without obvious discomfort Neurological: Only able to answer simple questions and very slowly, speech is halting and slurred. Psychiatric: affect is normal, does not appear anxious or depressed Triage Information Reviewed: Yes Vital Signs On Initial Exam: Initial Vitals Temp Pulse Resp BP Pulse Ox 98.5 F 144 22 156/95 93 08/27/18 16:39 08/27/18 16:39 08/27/18 16:39 08/27/18 16:39 08/27/18 16:39 Vital Signs Reviewed: Yes Diagnostics - Vital Signs Vital Signs Temp Pulse Resp BP Pulse Ox 08/27/18 17:17 22 08/27/18 16:43 22 08/27/18 16:39 98.5 F 144 22 156/95 93 - Laboratory Lab Results: Lab Results 08/27/18 08/27/18 Range/Units 16:53 16:53 WBC 8.8 (3.5-10.8) 10^3/ul RBC 5.70 H (4.00-5.40) 10^6/ul Hgb 17.3 (14.0-18.0) g/dl Hct 50 (42-52) % MCV 87 (80-94) fL MCH 30 (27-31) pg MCHC 35 (31-36) g/dl RDW 14 (10.5-15) % Plt Count 353 (150-450) 10^3/ul MPV 7.2 L (7.4-10.4) um3 Neut % (Auto) 66.2 (38-83) % Lymph % (Auto) 24.8 L (25-47) % [place] % (Auto) 8.5 H (0-7) % Eos % (Auto) 0 (0-6) % Baso % (Auto) 0.5 (0-2) % Absolute Neuts (auto) 5.9 (1.5-7.7) 10^3/ul Absolute Lymphs (auto) 2.2 (1.0-4.8) 10^3/ul Absolute Monos (auto) 0.7 (0-0.8) 10^3/ul Absolute Eos (auto) 0 (0-0.6) 10^3/ul Absolute Basos (auto) 0 (0-0.2) 10^3/ul Absolute Nucleated RBC 0.1 10^3/ul Nucleated RBC % 0.6 Sodium 139 (135-145) mmol/L Potassium 4.2 (3.5-5.0) mmol/L Chloride 100 L (101-111) mmol/L Carbon Dioxide 19 L (22-32) mmol/L Anion Gap 20 H (2-11) mmol/L BUN 13 (6-24) mg/dL Creatinine 0.99 (0.67-1.17) mg/dL Est GFR ( Amer) 104.1 (>60) Est GFR (Non-Af Amer) 86.0 (>60) BUN/Creatinine Ratio 13.1 (8-20) Glucose 127 H (70-100) mg/dL Calcium 9.9 (8.6-10.3) mg/dL Total Bilirubin 0.50 (0.2-1.0) mg/dL AST 31 (13-39) U/L ALT 27 (7-52) U/L Alkaline Phosphatase 109 H (34-104) U/L Total Protein 8.4 (6.4-8.9) g/dL Albumin 4.9 (3.2-5.2) g/dL Globulin 3.5 (2-4) g/dL Albumin/Globulin Ratio 1.4 (1-3) Serum Alcohol 288 H (<10) mg/dL Result Diagrams: 08/27/18 16:53 08/27/18 16:53 Lab Statement: Any lab studies that have been ordered have been reviewed, and results considered in the medical decision making process. Re-Evaluation - Re-Evaluation First Eval Re-Evaluation Time: 21:36 Change: Improved - The patient continues to have some halting very slow speech, but he is answering questions appropriately, admits to binge drinking over the past several days. He says his speech sometimes does get slowed when he goes through this. He is improving but is not really Second Eval Re-Evaluation Time: 00:47 Change: Improved Comment: Pt is ambulating and is feeling better. He will be discharged home. Course/Dx - Course Course Of Treatment: Level 5 caveat due to pt intoxication and associated AMS. A 33-year-old M presents to the ED with a CC of EtOH intoxication since [employer]. (+ ) slurred and halting speech, stupor. Mother's illness is a recent stressor, and abuse has worsened recently. In the ED course, pt was given haldol and ativan. Pt lab studies show mild decreased bicarbonate, slightly increased anion gap, no significant sign of acidosis. - Diagnoses Provider Diagnoses: Alcohol intoxication Discharge - Sign-Out/Discharge Documenting (check all that apply): Patient Departure - Discharge Plan Condition: Stable Disposition: HOME Patient Education Materials: Alcohol Intoxication (ED) Referrals: Dali Ely MD [Primary Care Provider] - Additional Instructions: Please follow up with your primary care provider in 1-2 days. RETURN TO EMERGENCY DEPARTMENT FOR ANY NEW OR WORSENING SYMPTOMS. - Billing Disposition and Condition Condition: STABLE Disposition: Home - Attestation Statements Document Initiated by Drewibe: Yes Documenting Scribe: Michael Lance Provider For Whom Kannan is Documenting (Include Credential): Dr. Colt Blanchard MD Scribe Attestation: Michael Dukes scribed for Dr. Colt Blanchard MD on 08/31/18 at 1403. Scribe Documentation Reviewed: Yes Provider Attestation: The documentation as recorded by the Michael byrne accurately reflects the service I personally performed and the decisions made by me, Dr. Colt Blanchard MD
--- NOTE | 2018-08-27 22:17 | ED ---
Progress - Progress Note Progress Note: This pt was signed out by Dr. Blanchard at shift change, pending disposition, awaiting sobriety. Re-Evaluation - Re-Evaluation First Eval Re-Evaluation Time: 21:36 Change: Improved - The patient continues to have some halting very slow speech, but he is answering questions appropriately, admits to binge drinking over the past several days. He says his speech sometimes does get slowed when he goes through this. He is improving but is not really Second Eval Re-Evaluation Time: 00:47 Change: Improved Comment: Pt is ambulating and is feeling better. He will be discharged home. Course/Dx - Course Course Of Treatment: This pt was signed out by Dr. Blanchard pending sobriety. At this time pt is ambulating in the ED without any difficulties. He is feeling better. Therefore pt will be discharged home with follow up from his PCP. Pt is instructed to return to the ED for any worsening or new symptoms. - Diagnoses Provider Diagnoses: Alcohol intoxication Discharge - Sign-Out/Discharge Documenting (check all that apply): Patient Departure - Discharge home, Receiving Sign-Out Receiving patient FROM: Colt Blanchard - Discharge Plan Condition: Stable Disposition: HOME Patient Education Materials: Alcohol Intoxication (ED) Referrals: Dali Ely MD [Primary Care Provider] - Additional Instructions: Please follow up with your primary care provider in 1-2 days. RETURN TO EMERGENCY DEPARTMENT FOR ANY NEW OR WORSENING SYMPTOMS. - Attestation Statements Document Initiated by Scribe: Yes Documenting Scribe: Arianna Martinez Provider For Whom Scribe is Documenting (Include Credential): Wili Quevedo MD Scribe Attestation: IArianna, scribed for Wili Quevedo MD on 08/28/18 at 0057.
[2018-08-28 05:36] VITALS: BP 136/79
== END 2018-08-28 05:25 | disposition home or self-care (01) ==
LOC: ED 16:33
DX: F10.129 Alcohol abuse with intoxication, unspecified (principal); F31.9 Bipolar disorder, unspecified
CPT/HCPCS: 36415; 80053; 80320; 85025; 96372; 99285; A9270-GY; G0480; J1630; J2060